=== PATIENT | female | born 1940 | race Caucasian/White ===

== ENCOUNTER 2021-08-18 13:05 | Emergency (ER) | payer OTHER ==
--- OUTSIDE RECORDS SUMMARY | 2021-08-18 13:09 | XMS REPORT | Continuity of Care Document ---
:1940 Author Organization [facility] t Address [address] [place] [address] [address]. [address] [place] [address] Care Team Providers Name Role Phone Roderick LOUISE, Gene Attending Clinician Emerson LR Attending Clinician Unavailable Doctor Unassigned, Name Attending Clinician Unavailable 2, Lab Attending Clinician Unavailable KIKO VAUGHN Attending Clinician Unavailable RODERICK, KIKO Attending Clinician Unavailable Payers Payer Name Policy Type Policy Number Effective Date Expiration Date S ource Problems This patient has no known problems. Allergies, Adverse Reactions, Alerts Allergy Allergy Status Severity Reaction(s) Onset Inactive Treating Comm ents Source Name Type Date Date Clinician Sulfa Propensi Active Nausea 2017-05 Univers (Sulfona ty to and/or 2-03 ity of mide adverse Vomiting 00:00: [place] Antibiot reaction 00 Medica l ics) s Branch SULFA Drug Active N/V 2017-05 Univers (SULFONA Class 2-03 ity of MIDE 00:00: [place] ANTIBIOT 00 Medical ICS) Branch Social History Social Habit Start Date Stop Date Quantity Comments Source Exposure to Not sure [facility] SARS-CoV-2 (event) Medica l Branch Tobacco use and 2018-05-22 2018-05-22 Never used [facility] exposure 00:00:00 00:00:00 Medical Branch Sex [birth year] At [birth year] [facility] 00:00:00 00:00:00 Medical Branch Smoking Status Start Date Stop Date Source Never smoker [facility] Medications Ordered Filled Start Stop Current Ordering Indication Dosage Frequency Signature Comments Components Source Medication Medication Date Date Medication? Clinician (SIG) Name Name PRIMIDONE 2019-05 Yes TAKE 1 Univer s 250 mg 2-16 TABLET BY ity of tablet 00:00: MOUTH [place] 00 TWICE A Medical DAY Branch PRIMIDONE 2020-1 Yes TAKE 1 Univer s 250 mg 2-16 TABLET BY ity of tablet 00:00: MOUTH [place] 00 TWICE A Medical DAY Branch PRIMIDONE 2020-1 Yes TAKE 1 Univer s 250 mg 2-16 TABLET BY ity of tablet 00:00: MOUTH [place] 00 TWICE A Medical DAY Branch PRIMIDONE 2020-1 Yes TAKE 1 Univer s 250 mg 2-16 TABLET BY ity of tablet 00:00: MOUTH [place] 00 TWICE A Medical DAY Branch levocetiriz 2020-0 Yes 5mg Take 5 mg U nivers ine (XYZAL) 5-26 by mouth ity of 5 mg tablet 16:52: every [place] 54 evening. Medical Branch pumpkin 2020-0 Yes 100mg Take 100 Unive rs seed 5-26 mg by ity of extract/soy 16:52: mouth [place] germ (AZO 54 daily. Medical BLADDER Branch CONTROL ORAL) levocetiriz 2020-0 Yes 5mg Take 5 mg U nivers ine (XYZAL) 5-26 by mouth ity of 5 mg tablet 16:52: every [place] 54 evening. Medical Branch pumpkin 2020-0 Yes 100mg Take 100 Unive rs seed 5-26 mg by ity of extract/soy 16:52: mouth [place] germ (AZO 54 daily. Medical BLADDER Branch CONTROL ORAL) levocetiriz 2020-0 Yes 5mg Take 5 mg U nivers ine (XYZAL) 5-26 by mouth ity of 5 mg tablet 16:52: every [place] 54 evening. Medical Branch pumpkin 2020-0 Yes 100mg Take 100 Unive rs seed 5-26 mg by ity of extract/soy 16:52: mouth [place] germ (AZO 54 daily. Medical BLADDER Branch CONTROL ORAL) levocetiriz 2020-0 Yes 5mg Take 5 mg U nivers ine (XYZAL) 5-26 by mouth ity of 5 mg tablet 16:52: every [place] 54 evening. Medical Branch pumpkin 2020-0 Yes 100mg Take 100 Unive rs seed 5-26 mg by ity of extract/soy 16:52: mouth [place] germ (AZO 54 daily. Medical BLADDER Branch CONTROL ORAL) levocetiriz 2020-0 Yes 5mg Take 5 mg U nivers ine (XYZAL) 5-26 by mouth ity of 5 mg tablet 16:52: every [place] 54 evening. Medical Branch pumpkin 2020-0 Yes 100mg Take 100 Unive rs seed 5-26 mg by ity of extract/soy 16:52: mouth [place] germ (AZO 54 daily. Medical BLADDER Branch CONTROL ORAL) levocetiriz 2020-0 Yes 5mg Take 5 mg U nivers ine (XYZAL) 5-26 by mouth ity of 5 mg tablet 16:52: every [place] 54 evening. Medical Branch pumpkin 2020-0 Yes 100mg Take 100 Unive rs seed 5-26 mg by ity of extract/soy 16:52: mouth [place] germ (AZO 54 daily. Medical BLADDER Branch CONTROL ORAL) levocetiriz 2020-0 Yes 5mg Take 5 mg U nivers ine (XYZAL) 5-26 by mouth ity of 5 mg tablet 16:52: every [place] 54 evening. Medical Branch pumpkin 2020-0 Yes 100mg Take 100 Unive rs seed 5-26 mg by ity of extract/soy 16:52: mouth [place] germ (AZO 54 daily. Medical BLADDER Branch CONTROL ORAL) TOPIRAMATE 2020-0 Yes [id number] TAKE 1 U nivers 100 mg 4-02 TABLET BY ity of tablet 00:00: MOUTH [place] 00 TWICE A Medical DAY Branch TOPIRAMATE 2020-0 Yes [id number] TAKE 1 U nivers 100 mg 4-02 TABLET BY ity of tablet 00:00: MOUTH [place] 00 TWICE A Medical DAY Branch TOPIRAMATE 2020-0 Yes [id number] TAKE 1 U nivers 100 mg 4-02 TABLET BY ity of tablet 00:00: MOUTH [place] 00 TWICE A Medical DAY Branch TOPIRAMATE 2020-0 Yes [id number] TAKE 1 U nivers 100 mg 4-02 TABLET BY ity of tablet 00:00: MOUTH [place] 00 TWICE A Medical DAY Branch TOPIRAMATE 2020-0 Yes [id number] TAKE 1 U nivers 100 mg 4-02 TABLET BY ity of tablet 00:00: MOUTH [place] 00 TWICE A Medical DAY Branch TOPIRAMATE 2020-0 Yes [id number] TAKE 1 U nivers 100 mg 4-02 TABLET BY ity of tablet 00:00: MOUTH [place] 00 TWICE A Medical DAY Branch TOPIRAMATE 2020-0 Yes [id number] TAKE 1 U nivers 100 mg 4-02 TABLET BY ity of tablet 00:00: MOUTH [place] 00 TWICE A Medical DAY Branch TOPIRAMATE 2020-0 Yes [id number] TAKE 1 U nivers 100 mg 4-02 TABLET BY ity of tablet 00:00: MOUTH 00 TWICE A Medical DAY Branch TOPIRAMATE 2020-0 Yes [id number] TAKE 1 U nivers 100 mg 4-02 TABLET BY ity of tablet 00:00: MOUTH 00 TWICE A Medical DAY Branch TOPIRAMATE 2020-0 Yes [id number] TAKE 1 U nivers 100 mg 4-02 TABLET BY ity of tablet 00:00: MOUTH 00 TWICE A Medical DAY Branch TOPIRAMATE 2020-0 2020- No [id number] TAKE 1 Univers 100 mg 4-02 04-02 TABLET BY ity of tablet 00:00: 00:00 MOUTH [place] 00 :00 TWICE A Medical DAY Branch PRIMIDONE 2020-0 Yes TAKE 1 Univer s 250 mg 3-23 TABLET BY ity of tablet 00:00: MOUTH 00 TWICE A Medical DAY Branch PRIMIDONE 2020-0 Yes TAKE 1 Univer s 250 mg 3-23 TABLET BY ity of tablet 00:00: MOUTH 00 TWICE A Medical DAY Branch PRIMIDONE 2020-0 Yes TAKE 1 Univer s 250 mg 3-23 TABLET BY ity of tablet 00:00: MOUTH 00 TWICE A Medical DAY Branch PRIMIDONE 2020-0 Yes TAKE 1 Univer s 250 mg 3-23 TABLET BY ity of tablet 00:00: MOUTH 00 TWICE A Medical DAY Branch PRIMIDONE 2020-0 Yes TAKE 1 Univer s 250 mg 3-23 TABLET BY ity of tablet 00:00: MOUTH 00 TWICE A Medical DAY Branch PRIMIDONE 2020-0 Yes TAKE 1 Univer s 250 mg 3-23 TABLET BY ity of tablet 00:00: MOUTH 00 TWICE A Medical DAY Branch PRIMIDONE 2020-0 Yes TAKE 1 Univer s 250 mg 3-23 TABLET BY ity of tablet 00:00: MOUTH 00 TWICE A Medical DAY Branch PRIMIDONE 2020-0 2020- No TAKE 1 Unive rs 250 mg 3-23 12-16 TABLET BY ity of tablet 00:00: 00:00 MOUTH [place] 00 :00 TWICE A Medical DAY Branch TOPIRAMATE 2020-0 Yes [id number] TAKE 1 U nivers 100 mg 1-08 TABLET BY ity of tablet 00:00: MOUTH 00 TWICE A Medical DAY Branch TOPIRAMATE 2020-0 Yes [id number] TAKE 1 U nivers 100 mg 1-08 TABLET BY ity of tablet 00:00: MOUTH 00 TWICE A Medical DAY Branch TOPIRAMATE 2020-0 2020- No [id number] TAKE 1 Univers 100 mg 05-26 TABLET BY ity of tablet 00:00: 00:00 MOUTH [place] 00 :00 TWICE A Medical DAY Branch loratadine Yes 1{tbl} Take 1 Uni vers (CLARITIN 7-05 tablet by ity o f ORAL) 16:11: mouth [place] 14 daily. Medical [facility] Yes Take 1 Univ ers ns with 7-05 TAB-CAP/M2 ity of Fluoride 16:11: by mouth [place] (MULTI-HENRIQUE 14 daily. Medica l MIN ORAL) [facility] 1{tbl} Take 1 Uni vers (CLARITIN 7-05 tablet by ity o f ORAL) 16:11: mouth [place] 14 daily. [facility] Yes Take 1 Univ ers ns with 7-05 TAB-CAP/M2 ity of Fluoride 16:11: by mouth [place] (MULTI-HENRIQUE 14 daily. Medica l MIN ORAL) [place] [facility] Yes 1{tbl} Take 1 Uni vers (CLARITIN 7-05 tablet by ity o f ORAL) 16:11: mouth [place] 14 daily. Medical [facility] Yes Take 1 Univ ers ns with 7-05 TAB-CAP/M2 ity of Fluoride 16:11: by mouth [place] (MULTI-HENRIQUE 14 daily. Medica l MIN ORAL) [facility] Yes 1{tbl} Take 1 Uni vers (CLARITIN 7-05 tablet by ity o f ORAL) 16:11: mouth [place] 14 daily. [facility] Yes Take 1 Univ ers ns with 7-05 TAB-CAP/M2 ity of Fluoride 16:11: by mouth [place] (MULTI-HENRIQUE 14 daily. Medica l MIN ORAL) Branch loratadine Yes 1{tbl} Take 1 Uni vers (CLARITIN 7-05 tablet by ity o f ORAL) 16:11: mouth [place] 14 daily. Medical Branch loratadine Yes 1{tbl} Take 1 Uni vers (CLARITIN 7-05 tablet by ity o f ORAL) 16:11: mouth [place] 14 daily. [facility] Yes Take 1 Univ ers ns with 7-05 TAB-CAP/M2 ity of Fluoride 16:11: by mouth [place] (MULTI-HENRIQUE 14 daily. Medica l MIN ORAL) Branch [facility] Yes Take 1 Univ ers ns with 7-05 TAB-CAP/M2 ity of Fluoride 16:11: by mouth [place] (MULTI-HENRIQUE 14 daily. Medica l MIN ORAL) Branch [facility] Yes 1{tbl} Take 1 Uni vers (CLARITIN 7-05 tablet by ity o f ORAL) 16:11: mouth [place] 14 daily. Medical [facility] Yes Take 1 Univ ers ns with 7-05 TAB-CAP/M2 ity of Fluoride 16:11: by mouth [place] (MULTI-HENRIQUE 14 daily. Medica l MIN ORAL) Branch [facility] Yes 1{tbl} Take 1 Uni vers (CLARITIN 7-05 tablet by ity o f ORAL) 16:11: mouth [place] 14 daily. [facility] Yes Take 1 Univ ers ns with 7-05 TAB-CAP/M2 ity of Fluoride 16:11: by mouth [place] (MULTI-HENRIQUE 14 daily. Medica l MIN ORAL) Branch [facility] Yes 1{tbl} Take 1 Uni vers (CLARITIN 7-05 tablet by ity o f ORAL) 16:11: mouth [place] 14 daily. [facility] Yes Take 1 Univ ers ns with 7-05 TAB-CAP/M2 ity of Fluoride 16:11: by mouth [place] (MULTI-HENRIQUE 14 daily. Medica l MIN ORAL) Branch [facility] Yes 1{tbl} Take 1 Uni vers (CLARITIN 7-05 tablet by ity o f ORAL) 16:11: mouth [place] 14 daily. [facility] Yes Take 1 Univ ers ns with 7-05 TAB-CAP/M2 ity of Fluoride 16:11: by mouth [place] (MULTI-HENRIQUE 14 daily. Medica l MIN ORAL) Branch [facility] Yes 1{tbl} Take 1 Uni vers (CLARITIN 7-05 tablet by ity o f ORAL) 16:11: mouth [place] 14 daily. [facility] Yes Take 1 Univ ers ns with 7-05 TAB-CAP/M2 ity of Fluoride 16:11: by mouth [place] (MULTI-HENRIQUE 14 daily. Medica l MIN ORAL) Branch loratadine Yes 1{tbl} Take 1 Uni vers (CLARITIN 7-05 tablet by ity o f ORAL) 16:11: mouth [place] 14 daily. Medical Branch [facility] Yes Take 1 Univ ers ns with 7-05 TAB-CAP/M2 ity of Fluoride 16:11: by mouth [place] (MULTI-HENRIQUE 14 daily. Medica l MIN ORAL) Branch BABY Yes 1{tbl} Take 1 Univers ASPIRIN 7-05 tablet by ity of ORAL 16:09: mouth [place] 34 daily. Medical Branch BABY Yes 1{tbl} Take 1 Univers ASPIRIN 7-05 tablet by ity of ORAL 16:09: mouth [place] 34 daily. Medical Branch BABY Yes 1{tbl} Take 1 Univers ASPIRIN 7-05 tablet by ity of ORAL 16:09: mouth [place] 34 daily. Medical Branch BABY Yes 1{tbl} Take 1 Univers ASPIRIN 7-05 tablet by ity of ORAL 16:09: mouth [place] 34 daily. Medical Branch BABY Yes 1{tbl} Take 1 Univers ASPIRIN 7-05 tablet by ity of ORAL 16:09: mouth [place] 34 daily. Medical Branch BABY Yes 1{tbl} Take 1 Univers ASPIRIN 7-05 tablet by ity of ORAL 16:09: mouth [place] 34 daily. Medical Branch BABY Yes 1{tbl} Take 1 Univers ASPIRIN 7-05 tablet by ity of ORAL 16:09: mouth [place] 34 daily. Medical Branch BABY Yes 1{tbl} Take 1 Univers ASPIRIN 7-05 tablet by ity of ORAL 16:09: mouth [place] 34 daily. Medical Branch BABY Yes 1{tbl} Take 1 Univers ASPIRIN 7-05 tablet by ity of ORAL 16:09: mouth [place] 34 daily. Medical Branch BABY Yes 1{tbl} Take 1 Univers ASPIRIN 7-05 tablet by ity of ORAL 16:09: mouth [place] 34 daily. Medical Branch BABY Yes 1{tbl} Take 1 Univers ASPIRIN 7-05 tablet by ity of ORAL 16:09: mouth [place] 34 daily. Medical Branch BABY Yes 1{tbl} Take 1 Univers ASPIRIN 7-05 tablet by ity of ORAL 16:09: mouth [place] 34 daily. Medical Branch atorvastati [id number] Yes TAKE 1 Univ ers n 40 mg 5-26 TABLET BY ity of tablet 00:00: MOUTH 00 EVERYDAY Medical AT BEDTIME Branch atorvastati [id number] Yes TAKE 1 Univ ers n 40 mg 5-26 TABLET BY ity of tablet 00:00: MOUTH 00 EVERYDAY Medical AT BEDTIME Branch atorvastati 0 Yes TAKE 1 Univ ers n 40 mg 5-26 TABLET BY ity of tablet 00:00: MOUTH 00 EVERYDAY Medical AT BEDTIME Branch atorvastati 0 Yes TAKE 1 Univ ers n 40 mg 5-26 TABLET BY ity of tablet 00:00: MOUTH 00 EVERYDAY Medical AT BEDTIME Branch atorvastati 0 Yes TAKE 1 Univ ers n 40 mg 5-26 TABLET BY ity of tablet 00:00: MOUTH 00 EVERYDAY Medical AT BEDTIME Branch atorvastati 0 Yes TAKE 1 Univ ers n 40 mg 5-26 TABLET BY ity of tablet 00:00: MOUTH 00 EVERYDAY Medical AT BEDTIME Branch atorvastati 2018-0 Yes TAKE 1 Univ ers n 40 mg 5-26 TABLET BY ity of tablet 00:00: MOUTH 00 EVERYDAY Medical AT BEDTIME Branch atorvastati 0 Yes TAKE 1 Univ ers n 40 mg 5-26 TABLET BY ity of tablet 00:00: MOUTH 00 EVERYDAY Medical AT BEDTIME Branch atorvastati 0 Yes TAKE 1 Univ ers n 40 mg 5-26 TABLET BY ity of tablet 00:00: MOUTH 00 EVERYDAY Medical AT BEDTIME Branch atorvastati 2019-0 Yes TAKE 1 Univ ers n 40 mg 5-26 TABLET BY ity of tablet 00:00: MOUTH 00 EVERYDAY Medical AT BEDTIME Branch atorvastati 2019-0 Yes TAKE 1 Univ ers n 40 mg 5-26 TABLET BY ity of tablet 00:00: MOUTH 00 EVERYDAY Medical AT BEDTIME Branch atorvastati 2019-0 Yes TAKE 1 Univ ers n 40 mg 5-26 TABLET BY ity of tablet 00:00: MOUTH 00 EVERYDAY Medical AT BEDTIME Branch primidone 2019-0 Yes 250mg Take 1 Unive rs 250 mg 4-04 tablet by ity of tablet 00:00: mouth 2 [place] 00 (two) Medical times Branch daily. primidone [id number] 2020- No 250mg Take 1 Univ ers 250 mg 4-08-08 tablet by ity of tablet 00:00: 00:00 mouth 2 [place] 00 :00 (two) Medical times Branch daily. oxybutynin 2017-05 Yes Univers chloride 5 1-27 ity of mg tablet 00:00: [place] [facility] oxybutynin 2017-05 Yes Univers chloride 5 1-27 ity of mg tablet 00:00: [place] [facility] oxybutynin 2017-05 Yes Univers chloride 5 1-27 ity of mg tablet 00:00: [place] [facility] oxybutynin 2017-05 Yes Univers chloride 5 1-27 ity of mg tablet 00:00: [place] [facility] oxybutynin 2017-05 Yes Univers chloride 5 1-27 ity of mg tablet 00:00: [place] [facility] oxybutynin 2017-05 Yes Univers chloride 5 1-27 ity of mg tablet 00:00: [place] [facility] oxybutynin 2017-05 Yes Univers chloride 5 1-27 ity of mg tablet 00:00: [place] [facility] oxybutynin 2017-05 Yes Univers chloride 5 1-27 ity of mg tablet 00:00: [place] [facility] oxybutynin 2017-05 Yes Univers chloride 5 1-27 ity of mg tablet 00:00: [place] [facility] oxybutynin 2017-05 Yes Univers chloride 5 1-27 ity of mg tablet 00:00: [place] [facility] oxybutynin 2017-05 Yes Univers chloride 5 1-27 ity of mg tablet 00:00: [place] [facility] oxybutynin 2017-05 Yes Univers chloride 5 1-27 ity of mg tablet 00:00: [place] [facility] propranolol Yes TAKE 1 Univ ers [place] 120 mg 9-28 CAPSULE BY ity of 24 hr 00:00: MOUTH [place] capsule 00 TWICE A Medical DAY Branch propranolol Yes TAKE 1 Univ ers [place] 120 mg 9-28 CAPSULE BY ity of 24 hr 00:00: MOUTH [place] capsule 00 TWICE A Medical DAY Branch propranolol Yes TAKE 1 Univ ers [place] 120 mg 9-28 CAPSULE BY ity of 24 hr 00:00: MOUTH [place] capsule 00 TWICE A Medical DAY Branch propranolol Yes TAKE 1 Univ ers [place] 120 mg 9-28 CAPSULE BY ity of 24 hr 00:00: MOUTH [place] capsule 00 TWICE A Medical DAY Branch propranolol Yes TAKE 1 Univ ers [place] 120 mg 9-28 CAPSULE BY ity of 24 hr 00:00: MOUTH [place] capsule 00 TWICE A Medical DAY Branch propranolol 2017- Yes TAKE 1 Univ ers [place] 120 mg 9-28 CAPSULE BY ity of 24 hr 00:00: MOUTH [place] capsule 00 TWICE A Medical DAY Branch propranolol Yes TAKE 1 Univ ers [place] 120 mg 9-28 CAPSULE BY ity of 24 hr 00:00: MOUTH [place] capsule 00 TWICE A Medical DAY Branch propranolol Yes TAKE 1 Univ ers [place] 120 mg 9-28 CAPSULE BY ity of 24 hr 00:00: MOUTH [place] capsule 00 TWICE A Medical DAY Branch propranolol Yes TAKE 1 Univ ers [place] 120 mg 9-28 CAPSULE BY ity of 24 hr 00:00: MOUTH [place] capsule 00 TWICE A Medical DAY Branch propranolol Yes TAKE 1 Univ ers [place] 120 mg 9-28 CAPSULE BY ity of 24 hr 00:00: MOUTH [place] capsule 00 TWICE A Medical DAY Branch propranolol Yes TAKE 1 Univ ers [place] 120 mg 9-28 CAPSULE BY ity of 24 hr 00:00: MOUTH [place] capsule 00 TWICE A Medical DAY Branch propranolol Yes TAKE 1 Univ ers [place] 120 mg 9-28 CAPSULE BY ity of 24 hr 00:00: MOUTH [place] capsule 00 TWICE A Medical DAY Branch simvastatin Yes TAKE 1 Univ ers 40 mg 9-18 TABLET BY ity of tablet 00:00: MOUTH 00 EVERY Medical EVENING Branch simvastatin Yes TAKE 1 Univ ers 40 mg 9-18 TABLET BY ity of tablet 00:00: MOUTH 00 EVERY Medical EVENING Branch simvastatin 2017- Yes TAKE 1 Univ ers 40 mg 9-18 TABLET BY ity of tablet 00:00: MOUTH [place] 00 EVERY Medical EVENING Branch simvastatin 2017- Yes TAKE 1 Univ ers 40 mg 9-18 TABLET BY ity of tablet 00:00: MOUTH 00 EVERY Medical EVENING Branch simvastatin 2017- Yes TAKE 1 Univ ers 40 mg 9-18 TABLET BY ity of tablet 00:00: MOUTH 00 EVERY Medical EVENING Branch simvastatin 2017- Yes TAKE 1 Univ ers 40 mg 9-18 TABLET BY ity of tablet 00:00: MOUTH 00 EVERY Medical EVENING Branch simvastatin 2017- Yes TAKE 1 Univ ers 40 mg 9-18 TABLET BY ity of tablet 00:00: MOUTH 00 EVERY Medical EVENING Branch simvastatin Yes TAKE 1 Univ ers 40 mg 9-18 TABLET BY ity of tablet 00:00: MOUTH 00 EVERY Medical EVENING Branch simvastatin Yes TAKE 1 Univ ers 40 mg 9-18 TABLET BY ity of tablet 00:00: MOUTH 00 EVERY Medical EVENING Branch simvastatin Yes TAKE 1 Univ ers 40 mg 9-18 TABLET BY ity of tablet 00:00: MOUTH 00 EVERY Medical EVENING Branch simvastatin Yes TAKE 1 Univ ers 40 mg 9-18 TABLET BY ity of tablet 00:00: MOUTH 00 EVERY Medical EVENING Branch simvastatin Yes TAKE 1 Univ ers 40 mg 9-18 TABLET BY ity of tablet 00:00: MOUTH 00 EVERY Medical EVENING Branch Immunizations Ordered Filled Immunization Date Status Comments [facility] e Immunization Name Name SARS-COV-2 COVID-19 2020-08-17 Completed Unive rsity of PFIZER VACCINE 00:00:00 [facility] SARS-COV-2 COVID-19 2020-07-27 Completed Unive rsity of PFIZER VACCINE 00:00:00 [facility] Vital Signs Vital Name Observation Time Observation Value Comments Source Systolic blood 2019-10-12 16:52:00 107 mm[Hg] Univer sity of pressure [facility] [place] [facility] Diastolic blood 2019-10-12 16:52:00 77 mm[Hg] Unive rsity of pressure [facility] [place] [facility] Heart rate 2019-10-12 16:52:00 56 /min [facility] Body temperature 2019-10-12 16:52:00 36.67 Lillie [facility] Respiratory rate 2019-10-12 16:52:00 17 /min [facility] Body height 2019-10-12 16:52:00 162.6 cm [facility] Body weight 2019-10-12 16:52:00 75.411 kg [facility] BMI 2019-10-12 16:52:00 28.54 kg/m2 [facility] Procedures Procedure Date / Time Performing Clinician Source Performed AUTHORIZATION FOR 2020-06-08 06:01:00 Doctor Unassigned, No [facility] RELEASE OF [facility] Name Medical Branch ASSIGNMENT OF BENEFITS 2019-10-12 16:09:31 Doctor Unassigned, No [facility] Medical Branch Encounters Start End Encounter Admission Attending Care Care Encounter Source Date/Time Date/Time Type Type Clinicians Facility Department ID 2020-10-29 2020-10-29 [facility] [id number] Univers 00:00:00 00:00:00 Cruz Odonnell [id number] [id number] [phone] [address] 2020-08-17 2020-08-17 Outpatient Jasiel LR [facility] [id number] Univers 14:40:00 14:40:00 TIFFANIE ity [facility] 2020-07-27 2020-07-27 [facility] [id number] Univers 14:50:00 14:50:00 TIFFANIE ity [facility] 2020-06-09 2020-06-09 [facility] [id number] Univers 00:00:00 00:00:00 Cruz Odonnell [id number] [id number] [phone] [address] 2020-06-08 2020-06-08 Orders Doctor CHELI [id number] Univers 00:00:00 00:00:00 Only Unassigned, CHARMAINE [id number] ity of [place] [facility] [id number] Krystian as [phone] [address] 2020-05-03 2020-05-03 Refmary lou Vaughn [facility] [id number] Univers 00:00:00 00:00:00 Cruz Odonnell [id number] [id number] [phone] [address] 2019-10-13 2019-10-13 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, Adc 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 [facility] [id number] Univers 11:06:53 11:21:53 Visit Cruz Vaughn [id number] [id number] [phone] Sc dical nal [facility] 2019-10-13 2019-10-13 Outpatient R [facility] [id number] Univers 10:30:00 10:30:00 [id number] ity [facility] 2019-10-13 2019-10-13 Outpatient R RODERICK CRUZ [facility] [id number] Univers 10:30:00 10:30:00 CRUZ VAUGHN [facility] 2019-10-12 2019-10-12 Office Roderick, [facility] [id number] Univers 11:09:36 11:59:41 Visit Cruz Odonnell [id number] ity [facility] [id number] [phone] [facility] 092 [facility] 2019-10-12 2019-10-12 Outpatient R CRUZ VAUGHN [facility] [id number] Univers 11:00:00 11:00:00 [facility] [id number] [facility] 2019-10-12 Outpatient R CRUZ VAUGHN [facility] [id number] Univers 11:00:00 11:00:00 CRUZ VAUGHN [facility] 2019-10-12 2019-10-12 Orders Doctor BOWER 1..840.114 [id number] Univers 00:00:00 00:00:00 Only Unassigned, CHARMAINE [id number] ity of [facility] [id number] Krystian as [phone] [address] 2019-08-19 2019-08-19 Refill Roderick [facility] [id number] Univers 00:00:00 00:00:00 Cruz Odonnell [id number] [id number] [phone] [facility] nal 092 [facility] 2019-08-19 2019-08-19 Refill Roderick [facility] [id number] Univers 00:00:00 00:00:00 Cruz Odonnell [id number] [id number] [phone] Sc dical nal 092 [facility] 2019-08-09 2019-08-09 [facility] [id number] Univers 00:00:00 00:00:00 Cruz Odonnell [id number] [id number] [phone] Sc dical nal 092 [facility] 2019-07-31 2019-07-31 [facility] 1.2.840.114 [id number] Univers 00:00:00 00:00:00 Cruz Odonnell [id number] [id number] [phone] [address] Results This patient has no known results.
--- NOTE | 2021-08-18 14:05 | RAD REPORT ---
EXAM DESCRIPTION: CT - Thorax Wo Con - 08/18/2021 1:50 pm CLINICAL HISTORY: fall, left sided rib pain, cough COMPARISON: No comparisons TECHNIQUE: Axial 5 mm thick images of the chest were obtained without IV contrast. All CT scans are performed using dose optimization technique as appropriate and may include automated exposure control or mA/KV adjustment according to patient size. FINDINGS: No acute mass or infiltrate seen. Scattered areas of subpleural scarring present. No pulmo nary contusion is identified. No pleural thickening or pleural effusion. No pneumothorax. No abnormal mediastinal or hilar masses or lymphadenopathy seen. No gross aortic or pulmonary artery finding suspected. Assessment is limited in the absence of IV contrast. No cardiomegaly or pericardi al effusion. The the left anterior third- sixth ribs are fractured near the costochondral junctions. No significan t displacement or angulation deformity. No pathologic rib changes. Left clavicle is intact. No sternu m fracture is identified. IMPRESSION: Nondisplaced fractures of the left anterior third through sixth ribs. No associated pulmonary contusion, pneumothorax or hemothorax.
--- NOTE | 2021-08-18 15:15 | RAD REPORT ---
EXAM DESCRIPTION: RAD - Wrist Left 3 View - 08/18/2021 2:52 pm CLINICAL HISTORY: fall 2 weeks ago;Pain COMPARISON: No comparisons FINDINGS: No fracture is identified. There is no dislocation or periosteal reaction noted. 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 Radiocarpal joint space is narrowed slightly. IMPRESSION: Degenerative changes are present as detailed but no fracture or acute finding confirmed.
--- NOTE | 2021-08-18 15:28 | ER ---
Nurse's Notes [facility] Name: Neeta Olson Age: 80 yrs Sex: Female : 1940 Arrival Date: 08/18/2021 Time: 13:10 Bed 17 Private MD: Silverio Camacho C Diagnosis: Multiple fractures of ribs, left side;Contusion of left wrist Presentation: 08/18 13:16 Chief complaint: Patient states: August 01 - I got my foot caught in the end of my ld1 bedspread and I fell. Denies LOC - did not hit head. C/O chest pain, left wrist pain \T\ left side rib pain. Coronavirus screen: At this time, the client does not indicate any symptoms associated with coronavirus-19. Ebola Screen: No symptoms or risks identified at this time. Initial Sepsis Screen: Does the patient meet any 2 criteria? No. Patient's initial sepsis screen is negative. Does the patient have a suspected source of infection? No. Patient's initial sepsis screen is negative. Risk Assessment: Do you want to hurt yourself or someone else? Patient reports no desire to harm self or others. Onset of symptoms was August 18, 2021. 13:16 Method Of Arrival: Ambulatory ld1 13:16 Acuity: FLAVIA 3 ld1 Triage Assessment: 13:20 General: Appears in no apparent distress. comfortable, Behavior is calm, cooperative, ld1 appropriate for age. Pain: Complains of pain in diaphragm and left hand Pain does not radiate. Pain currently is 0 out of 10 on a pain scale. EENT: No signs and/or symptoms were reported regarding the EENT system. Neuro: Level of Consciousness is awake, alert, obeys commands, Oriented to person, place, time, situation. Cardiovascular: Capillary refill < 3 seconds Patient's skin is warm and dry. Respiratory: Airway is patent Respiratory effort is even, unlabored. Historical: - Allergies: 13:19 Sulfa (Sulfonamide Antibiotics); ld1 - PMHx: 13:19 Glaucoma; ld1 13:22 Tremors; Lymphedema; ld1 - PSHx: 13:19 None; ld1 - Immunization history:: Adult Immunizations up to date, Client reports receiving the 2nd dose of the Covid vaccine. - Social history:: Smoking status: Patient denies any tobacco usage or history of. Patient/guardian denies using alcohol. - Family history:: not pertinent. - Hospitalizations: : No recent hospitalization is reported. Screenin:38 Abuse screen: Denies threats or abuse. Nutritional screening: No deficits noted. jd3 Tuberculosis screening: No symptoms or risk factors identified. Fall Risk Ambulatory Aid- None/Bed Rest/Nurse Assist (0 pts). Gait- Normal/Bed Rest/Wheelchair (0 pts) Mental Status- Oriented to own ability (0 pts). Total Shah Fall Scale indicates No Risk (0-24 pts). Assessment: 13:36 General: Appears in no apparent distress. comfortable, Behavior is calm, cooperative, jd3 appropriate for age. Pain: Complains of pain in left lateral anterior chest and left wrist Quality of pain is described as tender, Aggravated by increased activity. Neuro: Level of Consciousness is awake, alert, obeys commands, Oriented to person, place, time, situation. Cardiovascular: Capillary refill < 3 seconds Patient's skin is warm and dry. Respiratory: Airway is patent Respiratory effort is even, unlabored, Respiratory pattern is regular, symmetrical. GI: No signs and/or symptoms were reported involving the gastrointestinal system. : No signs and/or symptoms were reported regarding the genitourinary system. EENT: No signs and/or symptoms were reported regarding the EENT system. Derm: Skin is intact, Skin is dry, Skin is normal, Skin temperature is warm. Musculoskeletal: Circulation, motion, and sensation intact. Range of motion: intact in all extremities, Reports swelling in the left wrist a couple of days ago. 14:44 Reassessment: Patient appears in no apparent distress at this time. Patient and/or jd3 family updated on plan of care and expected duration. Pain level reassessed. Patient is alert, oriented x 3, equal unlabored respirations, skin warm/dry/pink. awaiting results and disposition. 15:47 Reassessment: Patient appears in no apparent distress at this time. Patient and/or jd3 family updated on plan of care and expected duration. Pain level reassessed. Patient is alert, oriented x 3, equal unlabored respirations, skin warm/dry/pink. reported understanding of discharge instructions. even and steady gait with cane to ER exit. Vital Signs: 13:16 BP 116 / 94; Pulse 82; Resp 18; Temp 97.9(TE); Pulse Ox 94% on R/A; Weight 77.11 kg; ld1 Height 5 ft. 4 in. (162.56 cm); Pain 0/10; 13:16 Body Mass Index 29.18 (77.11 kg, 162.56 cm) ld1 ED Course: 13:10 Patient arrived in ED. am2 13:11 Silverio Camacho MD is Private Physician. am2 13:19 Triage completed. ld1 13:20 Arm band placed on right wrist. ld1 13:24 Ton Lema RN is Primary Nurse. jd3 13:26 Keith Post MD is Attending Physician. rn 13:38 Patient has correct armband on for positive identification. Bed in low position. Call jd3 light in reach. Side rails up X 1. Adult w/ patient. Pulse ox on. NIBP on. 13:51 CT Chest Wo Con In Process Unspecified. EDMS 14:54 XRAY Wrist LEFT 3 view In Process Unspecified. EDMS 15:28 Silverio Camacho MD is Referral Physician. rn 15:47 No provider procedures requiring assistance completed. Patient did not have IV access jd3 during this emergency room visit. Administered Medications: No medications were administered Outcome: 15:28 Discharge ordered by MD. rn 15:48 Discharged to home ambulatory, with family. jd3 15:48 Condition: stable 15:48 Discharge instructions given to patient, family, Instructed on discharge instructions, follow up and referral plans. medication usage, Demonstrated understanding of instructions, follow-up care, medications, Prescriptions given X 1. 15:48 Patient left the ED. jd3 Signatures: Dispatcher [employer] EDMS Keith Post MD MD rn Moreno, Amanda am2 Ton Lema RN RN jClover Calixto RN RN ld1 Corrections: (The following items were deleted from the chart) 13:20 13:19 Allergies: Sulfacetamide Sodium; ld1 ld1 13:20 13:19 PMHx: None; ld1 ld1 13:22 13:20 PMHx: Lymphadema; ld1 ld1
--- NOTE | 2021-08-18 15:28 | EDPHYS ---
Physician Documentation [facility] Name: Neeta Olson Age: 80 yrs Sex: Female : 1940 Arrival Date: 08/18/2021 Time: 13:10 Bed 17 Private MD: Silverio Camacho C ED Physician Keith Post HPI: 08/18 13:50 This 80 yrs old Female presents to ER via Ambulatory with complaints of Fall Injury - 2 rn wks ago, Wrist Pain, Chest Pain From Injury. 13:50 Details of fall: The patient fell from an upright position, while standing. Onset: The rn symptoms/episode began/occurred 2 week(s) ago. Associated injuries: The patient sustained injury to the chest, pain left chest wall. 13:52 Severity of symptoms: At their worst the symptoms were mild, in the emergency rn department the symptoms are unchanged. The patient has not experienced similar symptoms in the past. The patient has not recently seen a physician. Pt reports making her bed 2 weeks ago, got tangled in bed spread, fell onto left side, has been having left sided rib pain since then that is worse with coughing or sneezing, no pain with deep inspiration, and also having left wrist pain. No other injuries. PCP prescribed abx this week for cough/sneezing. Denies sob. No hemoptysis. . Historical: - Allergies: 13:19 Sulfa (Sulfonamide Antibiotics); ld1 - PMHx: 13:19 Glaucoma; ld1 13:22 Tremors; Lymphedema; ld1 - PSHx: 13:19 None; ld1 - Immunization history:: Adult Immunizations up to date, Client reports receiving the 2nd dose of the Covid vaccine. - Social history:: Smoking status: Patient denies any tobacco usage or history of. Patient/guardian denies using alcohol. - Family history:: not pertinent. - Hospitalizations: : No recent hospitalization is reported. ROS: 13:52 Constitutional: Negative for fever, chills, and weight loss, Eyes: Negative for injury, rn pain, redness, and discharge, Neck: Negative for injury, pain, and swelling, Cardiovascular: Negative for palpitations, and edema, Respiratory: Negative for shortness of breath, cough, wheezing Abdomen/GI: Negative for abdominal pain, nausea, vomiting, diarrhea, and constipation, Back: Negative for injury and pain, MS/Extremity: + left wrist pain and injury Skin: Negative for injury, rash, and discoloration, Neuro: Negative for headache, weakness, numbness, tingling, and seizure. Exam: 13:52 Constitutional: This is a well developed, well nourished patient who is awake, alert, rn and in no acute distress. Head/Face: Normocephalic, atraumatic. Eyes: Periorbital areas with no swelling, redness, or edema. Neck: Trachea midline, no masses palpated Chest/axilla: Mild tenderness left lateral ribs, no crepitus, no ecchymosis Cardiovascular: Regular rate and rhythm. No pulse deficits. Respiratory: No increased work of breathing, no retractions or nasal flaring. Abdomen/GI: Soft, non-tender Back: No spinal tenderness. No costovertebral tenderness. Full range of motion. Skin: Warm, dry MS/ Extremity: Pulses equal, no cyanosis. Neurovascular intact. Full, normal range of motion. Equal circumference. Neuro: Awake and alert, GCS 15 Vital Signs: 13:16 BP 116 / 94; Pulse 82; Resp 18; Temp 97.9(TE); Pulse Ox 94% on R/A; Weight 77.11 kg; ld1 Height 5 ft. 4 in. (162.56 cm); Pain 0/10; 13:16 Body Mass Index 29.18 (77.11 kg, 162.56 cm) ld1 MDM: 13:26 Patient medically screened. rn 15:23 Differential diagnosis: contusion, fracture, sprain, strain. Data reviewed: vital rn signs, nurses notes, radiologic studies, CT scan, plain films. 15:26 Counseling: I had a detailed discussion with the patient and/or guardian regarding: the rn historical points, exam findings, and any diagnostic results supporting the discharge/admit diagnosis, radiology results, the need for outpatient follow up, to return to the emergency department if symptoms worsen or persist or if there are any questions or concerns that arise at home. Response to treatment: the patient's symptoms have mildly improved after treatment, and as a result, I will discharge patient. Special discussion: I discussed with the patient/guardian in detail that at this point there is no indication for admission to the hospital. It is understood, however, that if the symptoms persist or worsen the patient needs to return immediately for re-evaluation. ED course: CT chest without pneumothorax or hemothorax. Xray wrist neg for fracture. Will dc home with return precautions and pain medication prn.. 08/18 13:33 Order name: XRAY Wrist LEFT 3 view; Complete Time: 15:23 rn 08/18 13:33 Order name: CT Chest Wo Con; Complete Time: 14:07 rn 08/18 15:28 Order name: INCENTIVE SPIROMETRY rn Administered Medications: No medications were administered Disposition Summary: 08/18/21 15:28 Discharge Ordered Location: Home rn Problem: new rn Symptoms: have improved rn Condition: Stable rn Diagnosis - Multiple fractures of ribs, left side rn - Contusion of left wrist rn Followup: rn - With: Silverio Camacho MD - When: As needed - Reason: Recheck today's complaints, Re-evaluation by your physician Discharge Instructions: - Discharge Summary Sheet rn - Rib Fracture rn Forms: - Medication Reconciliation Form rn - Thank You Letter rn - Antibiotic rn integrity - Prescription Opioid Use rn Prescriptions: - Tramadol 50 mg Oral Tablet - take 1 tablet by ORAL route every 8 hours as needed; 12 tablet; Refills: 0, rn Product Selection Permitted Signatures: Dispatcher [employer] EDKeith Rudolph MD MD rn Dibbern, Lauren, RN RN ld1 Corrections: (The following items were deleted from the chart) 13:20 13:19 Allergies: Sulfacetamide Sodium; ld1 ld1 13:20 13:19 PMHx: None; ld1 ld1 13:22 13:20 PMHx: Lymphadema; ld1 ld1
[2021-08-18 15:53] VITALS: BP 116/94; TEMP 97.9; O2SAT 94
== END 2021-08-18 15:48 | disposition home or self-care (01) ==
LOC: ER 13:05
DX: S22.42XA Multiple fractures of ribs, left side, initial encounter for closed fracture (principal); S60.212A Contusion of left wrist, initial encounter; W18.30XA Fall on same level, unspecified, initial encounter; Z88.2 Allergy status to sulfonamides
CPT/HCPCS: 71250; 99283

== ENCOUNTER 2022-12-03 11:58 | Emergency (ER) | payer OTHER ==
--- OUTSIDE RECORDS SUMMARY | 2022-12-03 12:05 | XMS REPORT | Continuity of Care Document ---
:1940 Author Organization [facility] t Address [address] [place] [address] [place] [id number] Care Team Providers Name Role Phone Meeta Jeevan Osmar Attending Clinician Roderick LOUISE, Leandro Ricci Attending Clinician TIFFANIE LR Attending Clinician Unavailable Doctor Unassigned, [place] Attending Clinician Unavailable 2, [facility] Attending Clinician Unavailable LEANDRO VAUGHN Attending Clinician Unavailable LEANDRO VAUGHN Attending Clinician Unavailable Payers Payer Name Policy Type Policy Number Effective Date Expiration Date S ource Problems Condition Condition Condition Status Onset Resolution Last Treating Co mments Source Name Details Category Date Date Treatment Clinician Date 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 Hyperlipid Hyperlipi Problem Active 2014-052022-09-06 Memoria emia demia - 14:17:37 l (disorder) (disorder) 00:00: He rmann Active 00 03/31/2015 Problem 09/06/2022 [facility] Hypertensi Hypertens Problem Active 2022-09-06 Memoria ve beni 14:17:37 l disorder, disorder, Herm devin systemic systemic arterial arterial (disorder) (disorder) Active Problem 09/06/2022 [facility]Kaden rial [facility] Allergies, Adverse Reactions, Alerts Allergy Allergy Status [...] 00:00: [place] ANTIBIOT 00 Medical ICS) Branch sulfa sulfa Active Memoria drugs drugs l [place] Social History Social Habit Start Date Stop Date Quantity Comments Source Exposure to Not sure [facility] SARS-CoV-2 (event) Medica l Branch Tobacco use and 2018-05-22 2018-05-22 Never used [facility] exposure 00:00:00 [facility]:00:00 [facility] Sex Assigned At [birth year] [facility] 00:00:00 00:00:00 [facility] Smoking Status Start Date Stop Date Source Tobacco smoking status [facility] Medications Ordered Filled Start Stop Current Ordering Indication Dosage Frequency Signature Comments Components Source Medication Medication Date Date Medication? Clinician (SIG) Name Name topiramate Yes 100 mg = 1 M emoria 100 mg oral 4-18 tab, PO, l tablet 15:09: BID, # 180 Liss nn 00 tab, 3 Refill(s), [id number], 154.94, cm, 09/03/22 9:56:00 CDT, Height, 81.818, kg, 09/03/22 9:56:00 CDT, Weight Prevagen Yes 50 Memoria 4-18 microgram, l 15:01: PO, Daily, Cristino 00 0 Refill(s) primidone Yes = 1 tab, Kaden zehra 250 mg oral 1-31 PO, BID, # l tablet 16:55: 180 tab, 2 Liss nn 00 Refill(s), [id number], 154.94, cm, 03/05/22 11:11:00 CDT, Height, 80.455, kg, 03/05/22 11:11:00 CDT, Weight primidone 0 Yes See Memoria 250 mg oral 4-15 Instructio l tablet 16:11: ns, TAKE 1 Liss nn 00 TABLET BY MOUTH TWICE A DAY, # 180 tab, 2 Refill(s), [id number], 154.94, cm, 08/31/21 10:38:00 CDT, Height, 80.909, kg, 08/31/21 10:38:00 CDT, Weight topiramate 0 Yes 100 mg = 1 M emoria 100 mg oral 4-15 tab, PO, l tablet 16:11: BID, # 180 Liss nn 00 tab, 3 Refill(s), Pharmacy: [facility] #[id number], 154.94, cm, 08/31/21 10:38:00 CDT, Height, 80.909, kg, 08/31/21 10:38:00 CDT, Weight Azo-Cranber 2020-1 Yes 0 Memori a ry 0-15 Refill(s) l 15:58: [place] 00 primidone 0 Yes See Memoria 250 mg oral 9-05 Instructio l tablet 20:20: ns, TAKE 1 Liss nn 00 TABLET BY MOUTH TWICE A DAY, # 180 tab, 2 Refill(s), Pharmacy: [facility] [id number], 154.94, cm, 11/03/20 10:49:00 CDT, Height, 80.455, kg, 11/03/20 10:49:00 CDT, Weight topiramate 0 Yes 100 mg = 1 M emoria 100 mg oral 6-18 tab, PO, l tablet 16:04: BID, # 180 Liss nn 00 tab, 3 Refill(s), Pharmacy: [facility] #[id number], 154.94, cm, 11/03/20 10:49:00 CDT, Height, 80.455, kg, 11/03/20 10:49:00 CDT, Weight celecoxib 2020-0 Yes 0 Memoria 100 mg oral 6-18 Refill(s) l capsule 15:52: Cristino 00 propranolol 2020-0 Yes 20 mg = 1 M emoria 20 mg oral 2-19 tab, PO, l tablet 22:20: BID, # 60 [place] n 00 tab, 1 Refill(s) atorvastati 0 Yes 40 mg = 1 M emoria n 40 mg 2-19 tab, PO, l oral tablet 22:20: Bedtime, # Cristino 00 30 tab, 0 Refill(s) PRIMIDONE 2019-05 Yes TAKE 1 Univer s 250 mg 2-16 TABLET BY ity of tablet 00:00: MOUTH [place] 00 TWICE A Medical DAY Branch PRIMIDONE 2019-05 Yes TAKE 1 Univer s 250 mg 2-16 TABLET BY ity of tablet 00:00: MOUTH [place] 00 TWICE A Medical DAY Branch PRIMIDONE 2019-05 Yes TAKE 1 Univer s 250 mg 2-16 TABLET BY ity of tablet 00:00: MOUTH [place] 00 TWICE A Medical DAY Branch PRIMIDONE 2019-05 Yes TAKE 1 Univer s 250 mg 2-16 TABLET BY ity of tablet 00:00: MOUTH [place] 00 TWICE A Medical DAY Branch pumpkin 2020-0 Yes 100mg Take 100 [...] 16:52: every [place] 54 evening. Medical Branch TOPIRAMATE 2020-0 Yes [id number] TAKE 1 U nivers 100 mg 4-02 TABLET BY ity of tablet 00:00: MOUTH [place] 00 TWICE A Medical DAY Branch TOPIRAMATE 2020-0 Yes [id number] TAKE 1 U nivers 100 mg 4-02 TABLET BY ity of tablet 00:00: MOUTH [place] 00 TWICE A Medical DAY Branch TOPIRAMATE 2020-0 Yes [id number] TAKE 1 U nivers 100 mg 4-02 TABLET BY ity of tablet 00:00: MOUTH [place] 00 TWICE A Medical DAY Branch TOPIRAMATE 2020-0 Yes [id number] TAKE 1 U nivers 100 mg 4-02 TABLET BY ity of tablet 00:00: MOUTH [place] 00 TWICE A Medical DAY Branch TOPIRAMATE 2020-0 Yes [id number] TAKE 1 U nivers 100 mg 4-02 TABLET BY ity of tablet 00:00: MOUTH [place] 00 TWICE A Medical DAY Branch TOPIRAMATE 2020-0 Yes [id number] TAKE 1 U nivers 100 mg 4-02 TABLET BY ity of tablet 00:00: MOUTH [place] 00 TWICE A Medical DAY Branch TOPIRAMATE 2020-0 Yes [id number] TAKE 1 U nivers 100 mg 4-02 TABLET BY ity of tablet 00:00: MOUTH [place] 00 TWICE A Medical DAY Branch TOPIRAMATE 2020-0 Yes [id number] TAKE 1 U nivers 100 mg 4-02 TABLET BY ity of tablet 00:00: MOUTH [place] 00 TWICE A Medical DAY Branch TOPIRAMATE 2020-0 Yes [id number] TAKE 1 U nivers 100 mg 4-02 TABLET BY ity of tablet 00:00: MOUTH [place] 00 TWICE A Medical DAY Branch TOPIRAMATE 2020-0 Yes [id number] TAKE 1 U nivers 100 mg 4-02 TABLET BY ity of tablet 00:00: MOUTH [place] 00 TWICE A Medical DAY Branch TOPIRAMATE 2020-0 2020- No [id number] TAKE 1 Univers 100 mg 4-02 04-02 [...] A Medical DAY Branch TOPIRAMATE 2020-0 Yes [id number] TAKE 1 U nivers 100 mg 1-08 TABLET BY ity of tablet 00:00: MOUTH [place] 00 TWICE A Medical DAY Branch TOPIRAMATE 2020-0 Yes [id number] TAKE 1 U nivers 100 mg 1-08 TABLET BY ity of tablet 00:00: MOUTH [place] 00 TWICE A Medical DAY Branch TOPIRAMATE 2020-0 2020- No [id number] TAKE 1 Univers 100 mg 1-08 04-02 TABLET BY ity of tablet 00:00: [...] 16:11: mouth [place] 14 daily. [facility] Yes 1{tbl} Take 1 Uni vers (CLARITIN 7-05 tablet by ity o f ORAL) 16:11: mouth [place] 14 daily. [facility] Yes Take 1 Univ ers ns with 7-05 TAB-CAP/M2 ity of Fluoride 16:11: by mouth [place] (MULTI-HENRIQUE 14 daily. Medica l MIN ORAL) Branch [facility] Yes Take 1 Univ ers ns with 7-05 TAB-CAP/M2 ity of Fluoride 16:11: by mouth [place] (MULTI-HENRIQUE 14 daily. Medica l MIN ORAL) [facility] Yes 1{tbl} Take 1 Uni vers (CLARITIN 7-05 tablet by ity o f ORAL) 16:11: mouth [place] 14 daily. Medical Branch [facility] Yes Take 1 Univ ers ns with 7-05 TAB-CAP/M2 ity of Fluoride 16:11: by mouth [place] (MULTI-HENRIQUE 14 daily. Medica l MIN ORAL) [facility] Yes 1{tbl} Take 1 Uni vers (CLARITIN 7-05 tablet by ity o f ORAL) 16:11: mouth [place] 14 daily. Medical Branch [facility] Yes Take 1 Univ ers ns with 7-05 TAB-CAP/M2 ity of Fluoride 16:11: by mouth [place] (MULTI-HENRIQUE 14 daily. Medica l MIN ORAL) [facility] Yes 1{tbl} Take 1 Uni vers (CLARITIN 7-05 tablet by ity o f ORAL) 16:11: mouth [place] 14 daily. [facility] Yes Take 1 Univ ers ns with 7-05 TAB-CAP/M2 ity of Fluoride 16:11: by mouth [place] (MULTI-HENRIQUE 14 daily. Medica l MIN ORAL) [facility] Yes 1{tbl} Take 1 Uni vers (CLARITIN 7-05 tablet by ity o f ORAL) 16:11: mouth [place] 14 daily. Medical Branch [facility] Yes Take 1 Univ ers ns [...] mouth [place] 34 daily. Medical Branch BABY 2019- Yes 1{tbl} Take 1 Univers ASPIRIN 7-05 [...] 16:09: mouth [place] 34 daily. Medical Branch atorvasta Yes TAKE 1 Univ ers n 40 mg 5-26 TABLET BY ity of tablet 00:00: MOUTH [place] 00 EVERYDAY Medical AT BEDTIME Branch atorvasta Yes TAKE 1 Univ ers n 40 mg 5-26 TABLET BY ity of tablet 00:00: MOUTH [place] 00 EVERYDAY Medical AT BEDTIME Branch atorvasta 0 Yes TAKE 1 Univ ers n 40 mg 5-26 TABLET BY ity of tablet 00:00: MOUTH [place] 00 EVERYDAY Medical AT BEDTIME Branch atorvasta 0 Yes TAKE 1 Univ ers n 40 mg 5-26 TABLET BY ity of tablet 00:00: MOUTH [place] 00 EVERYDAY Medical AT BEDTIME Branch atorvastati 0 Yes TAKE 1 Univ ers n 40 mg 5-26 TABLET BY ity of tablet 00:00: MOUTH [place] 00 EVERYDAY Medical AT BEDTIME Branch atorvastati 2018-0 Yes TAKE 1 Univ ers n 40 mg 5-26 TABLET BY ity of tablet 00:00: MOUTH [place] 00 EVERYDAY Medical AT BEDTIME Branch atorvasta 2018-0 Yes TAKE 1 Univ ers n 40 mg 5-26 TABLET BY ity of tablet 00:00: MOUTH [place] 00 EVERYDAY Medical AT BEDTIME Branch atorvastati 2019-0 Yes TAKE 1 Univ ers n 40 mg 5-26 TABLET BY ity of tablet 00:00: MOUTH [place] 00 EVERYDAY Medical AT BEDTIME Branch atorvastati 2018-0 Yes TAKE 1 Univ ers n 40 mg 5-26 TABLET BY ity of tablet 00:00: MOUTH [place] 00 EVERYDAY Medical AT BEDTIME Branch atorvastati 2018-0 Yes TAKE 1 Univ ers n 40 mg 5-26 TABLET BY ity of tablet 00:00: MOUTH [place] 00 EVERYDAY Medical AT BEDTIME Branch atorvastati 2019-0 Yes TAKE 1 Univ ers n 40 mg 5-26 TABLET BY ity of tablet 00:00: MOUTH [place] 00 EVERYDAY Medical AT BEDTIME Branch atorvastati 2019-0 Yes TAKE 1 Univ ers n 40 mg 5-26 TABLET BY ity of tablet 00:00: MOUTH [place] EVERYDAY Medical AT BEDTIME Branch primidone 2018-0 Yes 250mg Take 1 Unive rs 250 mg 4-04 tablet by ity of tablet 00:00: mouth 2 [place] 00 (two) Medical times Branch daily. primidone [id number] 2020- No 250mg Take 1 Univ ers 250 mg 4-04 - tablet by ity of tablet 00:00: 00:00 mouth 2 [place] 00 :00 (two) Medical times Branch daily. oxybutynin 2017-05 Yes Univers chloride 5 1-27 ity of mg tablet 00:00: [place] [facility] oxybutynin 2017-05 Yes Univers chloride 5 1-27 ity of mg tablet 00:00: [place] [facility] oxybutynin 2017-05 Yes Univers chloride 5 1-27 ity of mg tablet 00:00: [place] [facility] oxybutynin 2017-05 Yes Univers chloride 5 1-27 ity of mg tablet 00:00: [place] [facility] oxybutynin 2017-05 Yes Univers chloride 5 1-27 ity of mg tablet 00:00: [place] [facility] oxybutynin 2017-05 Yes Univers chloride 5 1-27 ity of mg tablet 00:00: [place] [facility] oxybutynin 2017-05 Yes Univers chloride 5 1-27 ity of mg tablet 00:00: [place] [facility] oxybutynin 2017-05 Yes Univers chloride 5 1-27 ity of mg tablet 00:00: [place] [facility] oxybutynin 2017-05 Yes Univers chloride 5 1-27 ity of mg tablet 00:00: [place] [facility] oxybutynin 2017-05 Yes Univers chloride 5 1-27 ity of mg tablet 00:00: [place] [facility] oxybutynin 2017-05 Yes Univers chloride 5 1-27 ity of mg tablet 00:00: [place] [facility] oxybutynin 2017-05 Yes Univers chloride 5 1-27 ity of mg tablet 00:00: [address] topiramate 2017-05 Yes 100 mg = 1 M emoria 100 mg oral 0-31 tab, PO, l tablet 13:31: BID, # 60 [place] n 00 tab, 3 Refill(s), Pharmacy: [id number] propranolol 2017- Yes TAKE 1 Univ ers [...] 00 TWICE A Medical DAY Branch propranolol No See Memori a 120 mg oral 9-27 Instructio l capsule, 13:22: ns, # 180 Herm devin extended 28 unknown release unit, Refill(s) 1, TAKE 1 CAPSULE BY MOUTH TWICE A DAY, 08/03/18 12:52:42 CDT, Pharmacy: [facility] #[id number] primidone 2017- Yes See Memoria 250 mg oral 9-18 Instructio l tablet 13:25: ns, # 180 [place] n 29 tab, Refill(s) 2, TAKE 1 TABLET BY MOUTH TWICE A DAY, [id number] simvastatin Yes TAKE 1 Univ ers 40 mg 9-18 TABLET BY ity of tablet 00:00: MOUTH [place] 00 EVERY Medical EVENING Branch simvastatin Yes TAKE 1 Univ ers 40 mg 9-18 TABLET BY ity of tablet 00:00: MOUTH [place] 00 EVERY Medical EVENING Branch simvastatin Yes TAKE 1 Univ ers 40 mg 9-18 TABLET BY ity of tablet 00:00: MOUTH [place] 00 EVERY Medical EVENING Branch simvastatin 0 Yes TAKE 1 Univ ers 40 mg 9-18 TABLET BY ity of tablet 00:00: MOUTH [place] 00 EVERY Medical EVENING Branch simvastatin Yes TAKE 1 Univ ers 40 mg 9-18 TABLET BY ity of tablet 00:00: MOUTH [place] 00 EVERY Medical EVENING Branch simvastatin 0 Yes TAKE 1 Univ ers 40 mg 9-18 TABLET BY ity of tablet 00:00: MOUTH [place] 00 EVERY Medical EVENING Branch simvastatin 0 Yes TAKE 1 Univ ers 40 mg 9-18 TABLET BY ity of tablet 00:00: MOUTH [place] 00 EVERY Medical EVENING Branch simvastatin 2017-0 Yes TAKE 1 Univ ers 40 mg 9-18 TABLET BY ity of tablet 00:00: MOUTH [place] 00 EVERY Medical EVENING Branch simvastatin 0 Yes TAKE 1 Univ ers 40 mg 9-18 TABLET BY ity of tablet 00:00: MOUTH [place] 00 EVERY Medical EVENING Branch simvastatin 2017-0 Yes TAKE 1 Univ ers 40 mg 9-18 TABLET BY ity of tablet 00:00: MOUTH [place] 00 EVERY Medical EVENING Branch simvastatin 0 Yes TAKE 1 Univ ers 40 mg 9-18 TABLET BY ity of tablet 00:00: MOUTH [place] 00 EVERY Medical EVENING Branch simvastatin 2017-0 Yes TAKE 1 Univ ers 40 mg 9-18 TABLET BY ity of tablet 00:00: MOUTH [place] 00 EVERY Medical EVENING Branch topiramate 2017-0 No See Memoria 25 mg oral 9-17 Instructio l tablet 14:01: ns, # 180 [place] n 58 tab, Refill(s) 2, TAKE 2 TABLETS BY MOUTH AT BEDTIME, 03/18/18 8:31:56 CDT, Pharmacy: [id number] aspirin 81 2018-0 Yes 81 mg = 1 Me moria mg tablet, 3-13 tab, CHEW, l chewable 14:44: Daily, 0 Liss nn 00 Refill(s) Centrum 2018-0 Yes 1 tab, PO, Kaden zehra Silver oral 3-13 Daily, 0 l tablet 14:44: Refill(s) [place] n 00 oxybutynin 2018 Yes 5 mg = 1 Mem oria 5 mg oral 3-13 tab, PO, l tablet 14:44: TID, 0 [place] 00 Refill(s) Immunizations Ordered Filled Immunization Date Status Comments [facility] Immunization Name Name SARS-COV-2 COVID-19 2020-08-17 Completed Unive rsity of PFIZER VACCINE 00:00:00 [facility] [id number] 2020-08-17 Completed Memor ial Cristino [id number] 00:00:00 ER SARS-COV-2 COVID-19 2020-07-27 Completed Unive rsity of PFIZER VACCINE 00:00:00 [facility] [id number] 2020-07-27 Completed Memor ial Cristino [id number] 00:00:00 ER Vital Signs Vital Name Observation Time Observation Value Comments Source Systolic blood 2019-10-12 16:52:00 107 mm[Hg] [facility] Diastolic blood 2019-10-12 16:52:00 77 mm[Hg] [facility] Heart rate 2019-10-12 16:52:00 56 /min [facility] Body temperature 2019-10-12 16:52:00 36.67 [facility] Respiratory rate 2019-10-12 16:52:00 17 /min [facility] Body height 2019-10-12 16:52:00 162.6 cm [facility] Body weight 2019-10-12 16:52:00 75.411 kg [facility] BMI 2019-10-12 16:52:00 28.54 kg/m2 [facility] Systolic (mm Hg) 2022-09-03 14:52:00 Kaden rial [place] Diastolic (mm Hg) 2022-09-03 14:52:00 Mem orial [place] Heart Rate 2022-09-03 14:52:00 [facility] [place] Height 2022-09-03 14:52:00 5 [ft_i] [facility] [place] Weight 2022-09-03 14:52:00 [facility] Cristino BMI Calculated 2022-09-03 14:52:00 Memori al Cristino Systolic (mm Hg) 2022-03-05 16:01:00 Kaden rial Cristino Diastolic (mm Hg) 2022-03-05 16:01:00 Mem orial [place] Heart Rate 2022-03-05 16:01:00 [facility] Cristino Height 2022-03-05 16:01:00 5 [ft_i] [facility] Cristino Weight 2022-03-05 16:01:00 [facility] [place] BMI Calculated 2022-03-05 16:01:00 Memori al Cristino Systolic (mm Hg) 2021-08-31 15:38:00 Kaden rial [place] Diastolic (mm Hg) 2021-08-31 15:38:00 Mem orial [place] Heart Rate 2021-08-31 15:38:00 [facility] [place] Respitory Rate 2021-08-31 15:38:00 Memori al [place] Height 2021-08-31 15:38:00 154.94 cm [facility] Cristino Weight 2021-08-31 15:38:00 [facility] Cristino BMI Calculated 2021-08-31 15:38:00 Memori al Cristino Systolic (mm Hg) 2021-03-02 15:35:00 Kaden rial Cristino Diastolic (mm Hg) 2021-03-02 15:35:00 Mem orial [place] Heart Rate 2021-03-02 15:35:00 [facility] Cristino Respitory Rate 2021-03-02 15:35:00 Memori al Cristino Systolic (mm Hg) 2020-11-03 15:39:00 Kaden rial Cristino Diastolic (mm Hg) 2020-11-03 15:39:00 Mem orial [place] Heart Rate 2020-11-03 15:39:00 [facility] [place] Respitory Rate 2020-11-03 15:39:00 Memori al [place] Height 2020-11-03 15:39:00 154.94 cm [facility] [place] Weight 2020-11-03 15:39:00 [facility] Cristino BMI Calculated 2020-11-03 15:39:00 Memori al Cristino Systolic (mm Hg) 2020-07-07 22:04:00 Kaden drummond [place] Diastolic (mm Hg) 2020-07-07 22:04:00 Mem orial [place] Heart Rate 2020-07-07 22:04:00 [facility] Cristino Respitory Rate 2020-07-07 22:04:00 Memori al Cristino Height 2020-07-07 22:04:00 157.48 cm [facility] Cristino Weight 2020-07-07 22:04:00 [facility] Cristino BMI Calculated 2020-07-07 22:04:00 Oliverori al Cristino Procedures Procedure Date / Time Performing Clinician Source Performed AUTHORIZATION FOR 2020-06-08 06:01:00 Doctor Unassigned, No [facility] Name Medical Branch ASSIGNMENT OF BENEFITS 2019-10-12 16:09:31 Doctor Unassigned, No [facility] Name Medical Branch Encounters Start End Encounter Admission Attending Care Care Encounter Source Date/Time Date/Time Type Type Clinicians Facility Department ID 2023-03-05 2023-03-05 Outpatient MHIE MHIE [id number] Memoria 10:00:00 10:00:00 09 dhara Cristino 2022-09-03 2022-09-04 Outpatient MHIE MNA [id number] Memoria 14:45:00 04:59:59 Neurology 08 dhara Gregg 2022-09-03 2022-09-03 Outpatient RICK Tim MHMISCHER [id number] 09:45:00 23:59:59 Jeevan 08 Osmar 2022-09-03 2022-09-03 Outpatient MHIE MHIE [id number] Memoria 09:45:00 09:45:00 08 dhara Gregg 2022-03-05 2022-03-06 Outpatient nullFlavo MNA [id number] Memoria 15:45:00 04:59:59 r Neurology 07 l Marjorie Gregg 2022-03-05 2022-03-05 Outpatient RICK Tim MHMISCHER [id number] 10:45:00 23:59:59 Jeevan 07 Osmar 2022-03-05 2022-03-05 Outpatient MHIE MHIE [id number] Memoria 10:45:00 10:45:00 07 dhara Cristino 2021-08-31 2021-09-01 Outpatient nullFlavo MNA [id number] Memoria 15:30:00 04:59:59 r Neurology 06 l Hollywood Cristino 2021-08-31 2021-08-31 [id number] 10:30:00 23:59:59 Jeevan 06 Osmar 2021-08-31 2021-08-31 Outpatient MHIE MHIE [id number] Memoria 10:30:00 10:30:00 06 dhara Cristino 2021-03-02 2021-03-03 Outpatient nullFlavo MNA [id number] Memoria 15:30:00 04:59:59 r Neurology 05 dhara Marjorie Gregg 2021-03-02 2021-03-02 [id number] 10:30:00 23:59:59 Jeevan 05 Osmar 2021-03-02 2021-03-02 Outpatient MHIE MHIE [id number] Memoria 10:30:00 10:30:00 05 dhara Cristino 2020-11-03 2020-11-04 Outpatient nullFlavo MNA [id number] Memoria 15:30:00 04:59:59 r Neurology 04 l Marjorie Gregg 2020-11-03 2020-11-03 Outpatient RICK [id number] 10:30:00 23:59:59 Jeevan 04 Osmar 2020-11-03 2020-11-03 Outpatient MHIE MHIE [id number] Memoria 10:30:00 10:30:00 04 dhara Cristino 2020-10-29 2020-10-29 Mary Vaughn FLZACARIAS [id number] Univers 00:00:00 00:00:00 Leandro [facility]donnell [id number] [facility] [id number] [phone] [address] 2020-08-17 2020-08-17 Outpatient Jasiel LR [facility] [id number] Univers 14:40:00 14:40:00 TIFFANIE [facility] 2020-07-27 2020-07-27 Outpatient Jasiel LR [facility] [id number] Univers 14:50:00 14:50:00 TIFFANIE [facility] 2020-07-07 2020-07-08 Outpatient nullFlavo MNA [id number] Memoria 22:00:00 05:59:59 r Neurology 03 l Hollywoodjez Gregg 2020-07-07 2020-07-07 Outpatient Meeta, MISCHER MHMISCHER [id number] 16:00:00 23:59:59 Jeevan 03 Osmar 2020-07-07 2020-07-07 Outpatient MHIE MHIE [id number] Memoria 16:00:00 16:00:00 03 l Cristino 2020-06-09 2020-06-09 [facility] [id number] Univers 00:00:00 00:00:00 Leandro Odonnell [id number] [id number] [phone] [address] 2020-06-08 2020-06-08 Orders Doctor CHELI 1.2.840.114 [id number] Univers 00:00:00 00:00:00 Only Unassigned, CHARMAINE [id number] ity of [place] [facility] [id number] Krystian as [phone] [address] 2020-05-03 2020-05-03 [facility] [id number] Univers 00:00:00 00:00:00 Leandro Odonnell [id number] [id number] [phone] [address] 2019-10-13 2019-10-13 Timber Sizer Operator 2, Adc Lab [facility] 1.2.840.114 [id number] Univers 11:06:53 11:21:53 Visit Leandro Vaughn Radhames Odonnell [id number] [id number] [phone] Mo dical nal 353 [facility] 2019-10-13 2019-10-13 Outpatient R LEANDRO VAUGHN [facility] [id number] Univers 10:30:00 10:30:00 LEANDRO VAUGHN ity [facility] 2019-10-12 2019-10-12 Office Roderick [facility] [id number] Univers 11:09:36 11:59:41 Visit Leandro Odonnell [id number] [id number] [phone] [facility] [address] [place] [address] 2019-10-12 2019-10-12 Outpatient LEANDRO ALVARADO [facility] [id number] Univers 11:00:00 11:00:00 LEANDRO VAUGHN ity [facility] 2019-10-12 2019-10-12 Orders Doctor CHELI 1.2.840.114 [id number] Univers 00:00:00 00:00:00 Only Unassigned, CHARMAINE [id number] [facility] [id number] Krystian as [phone] [address] 2019-08-19 2019-08-19 Refill Roderick [facility] [id number] Univers 00:00:00 00:00:00 Leandro Odonnell [id number] [id number] [phone] Mo dicca nal 092 [facility] 2019-08-19 2019-08-19 Refill Roderick [facility] 1.2.840.114 [id number] Univers 00:00:00 00:00:00 Leandro Odonnell [id number] [id number] [phone] [facility] [address] [place] [address] 2019-08-09 2019-08-09 [facility] [id number] Univers 00:00:00 00:00:00 Leandro Odonnell [id number] [id number] [phone] Mo dical nal 092 [facility] 2019-07-31 2019-07-31 [facility] [id number] Univers 00:00:00 00:00:00 Leandro Odonnell [id number] [id number] [phone] Mo dical nal 2 [facility] 2018-11-03 2018-11-05 Outside nullFlavo MNA [id number] Memoria 13:16:15 04:59:59 Medical r Neurology 03 l Records [place] Cristino 2018-11-03 2018-11-04 Outpatient MHMISCHER MHMISCHER [id number] 08:16:15 23:59:59 03 2018-05-05 2018-05-05 Ambulatory nullFlavo MNA [id number] Memoria 17:30:00 17:30:00 Pre-Reg r Neurology 02 dhara [place] Cristino 2018-05-05 2018-05-05 Outpatient MHIE MHIE [id number] [facility] 11:30:00 11:30:00 02 dhara Gregg 2018-05-05 2018-05-05 Outpatient Meeta, MHMISCHER MHMISCHER [id number] 11:30:00 11:30:00 Jeevan Jose G Prasad 2018-04-02 2018-04-04 Phone nullFlavo MNA [id number] Memoria 16:32:00 05:59:59 Message r Neurology 01 l [place] Cristino 2018-04-02 2018-04-03 Outpatient MHMISCHER MHMISCHER [id number] 10:32:00 23:59:59 2018-03-17 2018-03-19 Phone nullFlavo MNA [id number] Memoria 23:20:00 04:59:59 Message r Neurology 00 l [place] Cristino 2018-03-17 2018-03-18 Outpatient MHMISCHER MHMISCHER [id number] 18:20:00 23:59:59 00 2017-12-09 2017-12-09 Outpatient [facility] [id number] Mem[facility] 11:45:00 11:45:00 01 dhara Gregg 2017-08-07 2017-08-07 Outpatient [facility] [id number] [facility] 09:30:00 09:30:00 00 dhara Gregg Results This patient has no known results.
--- NOTE | 2022-12-03 13:45 | RAD REPORT ---
EXAM DESCRIPTION: RAD - Hip Left 2 View - 12/03/2022 1:24 pm CLINICAL HISTORY: PAIN COMPARISON: <Comparisons> FINDINGS: Mild left hip arthritic changes are present. No acute fracture or dislocation is seen. No AVN pattern observed.
--- NOTE | 2022-12-03 13:56 | ER ---
Nurse's Notes [facility] Name: Neeta Olson Age: 81 yrs Sex: Female : 1940 Arrival Date: 12/03/2022 Time: 11:58 Bed 9 Private MD: Silverio Camacho C Diagnosis: Pain in left hip;Osteoarthritis of hip, unspecified Presentation: 12/03 12:08 Chief complaint: Patient states: left hip pain x 1 week ago, Pt states "I need a aa5 cortisone shot in my hip". Pt's daughter states "we tried to go see Dr. Cordero (ortho) but he's out of town for 2 weeks". Denies known injury. Coronavirus screen: At this time, the client does not indicate any symptoms associated with coronavirus-19. Ebola Screen: Patient denies travel to an Ebola-affected area in the 21 days before illness onset. Initial Sepsis Screen: Does the patient meet any 2 criteria? No. Patient's initial sepsis screen is negative. Does the patient have a suspected source of infection? No. Patient's initial sepsis screen is negative. Risk Assessment: Do you want to hurt yourself or someone else? Patient reports no desire to harm self or others. Onset of symptoms was November 2022. 12:08 Acuity: FLAVIA 4 aa5 12:08 Method Of Arrival: Wheelchair aa5 Triage Assessment: 12:52 General: Appears in no apparent distress. uncomfortable, Behavior is calm, cooperative, ko1 appropriate for age. Pain: Complains of pain in left hip. EENT: No deficits noted. Neuro: No deficits noted. Cardiovascular: No deficits noted. Respiratory: No deficits noted. GI: No deficits noted. : No deficits noted. Derm: No deficits noted. Musculoskeletal: Reports pain in left hip. Historical: - Allergies: 12:09 Sulfa (Sulfonamide Antibiotics); aa5 - PMHx: 12:09 Glaucoma; lymphedema; tremors; aa5 - PSHx: 12:11 jesika knee replacement; aa5 - Immunization history:: Adult Immunizations up to date. - Social history:: Smoking status: Patient denies any tobacco usage or history of. - Family history:: not pertinent. - Hospitalizations: : No recent hospitalization is reported. Screenin:53 [facility] ED Fall Risk Assessment (Adult) History of falling in the last 3 months, ko1 including since admission No falls in past 3 months (0 pts) Confusion or Disorientation No (0 pts) Intoxicated or Sedated No (0 pts) Impaired Gait Yes (1 pt) Mobility Assist Device Used Yes (1 pt) Altered Elimination No (0 pt) Score/Fall Risk Level 0 - 2 = Low Risk Oriented to surroundings, Maintained a safe environment, Educated pt \\T\\ family on fall prevention, incl call for assistance when getting out of bed, Assessed \\T\\ reinforced patient's understanding of fall precautions, Provided non-skid footwear, Hourly rounding (assess needs \\T\\ fall precautionary measures) done, Used ambulatory aids as needed (educated on \\T\\ assisted with). Abuse screen: Denies threats or abuse. Denies injuries from another. Nutritional screening: No deficits noted. Tuberculosis screening: No symptoms or risk factors identified. Assessment: 12:53 Neuro: No deficits noted. Cardiovascular: No deficits noted. Respiratory: No deficits ko1 noted. GI: No deficits noted. : No deficits noted. EENT: No deficits noted. Derm: No deficits noted. Musculoskeletal: Reports pain in left hip. Vital Signs: 12:08 BP 109 / 86; Pulse 76; Resp 18 S; Temp 97.7(TE); Pulse Ox 96% on R/A; aa5 14:03 BP 107 / 72; Pulse 70; Resp 16; Pulse Ox 99% ; ko1 ED Course: 11:59 Patient arrived in ED. am2 12:00 Silverio Camacho MD is Private Physician. am2 12:08 Arm band placed on. aa5 12:09 Keith Post MD is Attending Physician. rn 12:09 Triage completed. aa5 12:40 Zohra Leigh, KAREEM is Primary Nurse. ko1 12:53 Patient has correct armband on for positive identification. Bed in low position. Call ko1 light in reach. Provided Education on: NA. 13:26 XRAY Hip LEFT 2 view In Process Unspecified. EDMS 14:03 No provider procedures requiring assistance completed. Patient did not have IV access ko1 during this emergency room visit. Administered Medications: 14:06 Drug: Ketorolac IM 15 mg Route: IM; Site: right deltoid; ko1 Medication: 14:03 VIS not applicable for this client. ko1 Outcome: 13:56 Discharge ordered by . rn 14:19 Discharged to home via wheelchair, with family. ko1 14:19 Condition: stable 14:19 Discharge instructions given to patient, family, Instructed on discharge instructions, follow up and referral plans. Demonstrated understanding of instructions, follow-up care. 14:19 Patient left the ED. ko1 Signatures: Dispatcher [employer] EDKeith Rudolph MD MD rn Calderon, Audri RN RN [email or web address] Jeanine Thompson Kathy, RN RN ko1 Corrections: (The following items were deleted from the chart) 12:10 12:08 Chief complaint: Patient states: left hip pain x 1 week ago, Pt states "I need a aa5 cortisone shot in my hip". Pt's daughter states "we tried to go see Dr. Cordero (ortho) but he's out of town for 2 weeks" aa5
--- NOTE | 2022-12-03 13:56 | EDPHYS ---
Physician Documentation [facility] Name: Neeta Olson Age: 81 yrs Sex: Female : 1940 Arrival Date: 12/03/2022 Time: 11:58 Bed 9 Private MD: Silverio Camacho C ED Physician Keith Post HPI: 12/03 13:39 This 81 yrs old Female presents to ER via Wheelchair with complaints of Hip Pain. rn 13:39 The patient or guardian reports pain. The complaints affect the left hip. Onset: The rn symptoms/episode began/occurred 5 day(s) ago. Modifying factors: The symptoms are alleviated by remaining still, the symptoms are aggravated by weight bearing. Severity of symptoms: At their worst the symptoms were moderate, in the emergency department the symptoms are unchanged. The patient has experienced similar episodes in the past. The patient has not recently seen a physician. Pt reports left hip pain, no injury or fall, has had similar pain in right hip and steroid shot helped, her orthopedist is out of town so came here to see if can get a steroid shot. No weakness. . Historical: - Allergies: 12:09 Sulfa (Sulfonamide Antibiotics); aa5 - PMHx: 12:09 Glaucoma; lymphedema; tremors; aa5 - PSHx: 12:11 jesika knee replacement; aa5 - Immunization history:: Adult Immunizations up to date. - Social history:: Smoking status: Patient denies any tobacco usage or history of. - Family history:: not pertinent. - Hospitalizations: : No recent hospitalization is reported. ROS: 13:40 Constitutional: Negative for fever, chills, and weight loss, Back: Negative for injury rn and pain, MS/Extremity: + left hip pain Skin: Negative for injury, rash, and discoloration, Neuro: Negative for headache, weakness, numbness, tingling, and seizure. Exam: 13:40 Constitutional: This is a well developed, well nourished patient who is awake, alert, rn and in no acute distress. MS/ Extremity: Pulses equal, no cyanosis. Neurovascular intact. Full, normal range of motion. Equal circumference. No swelling of left leg, FROM at knee and hip. No discoloration. Vital Signs: 12:08 BP 109 / 86; Pulse 76; Resp 18 S; Temp 97.7(TE); Pulse Ox 96% on R/A; aa5 14:03 BP 107 / 72; Pulse 70; Resp 16; Pulse Ox 99% ; ko1 MDM: 12:09 Patient medically screened. rn 13:55 Differential diagnosis: hip fracture, bursitis, arthritis, strain. Data reviewed: vital rn signs, nurses notes, radiologic studies, plain films, and as a result, I will discharge patient. Counseling: I had a detailed discussion with the patient and/or guardian regarding: the historical points, exam findings, and any diagnostic results supporting the discharge/admit diagnosis, radiology results, the need for outpatient follow up, to return to the emergency department if symptoms worsen or persist or if there are any questions or concerns that arise at home. Special discussion: I discussed with the patient/guardian in detail that at this point there is no indication for admission to the hospital. It is understood, however, that if the symptoms persist or worsen the patient needs to return immediately for re-evaluation. Based on the history and exam findings, there is no indication for further emergent testing or inpatient evaluation. I discussed with the patient/guardian the need to see the orthopedic surgeon for further evaluation of the symptoms. 12/03 12:18 Order name: XRAY Hip LEFT 2 view; Complete Time: 13:48 rn Administered Medications: 14:06 Drug: Ketorolac IM 15 mg Route: IM; Site: right deltoid; ko1 Disposition Summary: 12/03/22 13:56 Discharge Ordered Location: Home rn Problem: an ongoing problem rn Symptoms: have improved rn Condition: Stable rn Diagnosis - Pain in left hip rn - Osteoarthritis of hip, unspecified rn Followup: rn - With: Private Physician - When: As needed - Reason: Recheck today's complaints, Re-evaluation by your physician Discharge Instructions: - Discharge Summary Sheet rn - Arthritis rn - Musculoskeletal Pain rn - Osteoarthritis rn Forms: - Medication Reconciliation Form rn - Thank You Letter rn - Antibiotic coke burner - Prescription Opioid Use rn - Patient Portal Instructions rn Signatures: Dispatcher [employer] Keith Johnson MD MD rn Calderon, Audri RN RN aa5 Zohra Leigh, RN RN ko1
[2022-12-03] MEDS ORDERED: KETOROLAC 30 MG/ML INJ ONE (14:06)
[2022-12-03 14:51] VITALS: TEMP 97.7
[2022-12-03 14:52] VITALS: BP 107/72; O2SAT 99
== END 2022-12-03 14:19 | disposition home or self-care (01) ==
LOC: ER 11:58
DX: M16.12 Unilateral primary osteoarthritis, left hip (principal); Z96.643 Presence of artificial hip joint, bilateral; Z88.2 Allergy status to sulfonamides
CPT/HCPCS: 96372; 99284

== ENCOUNTER 2023-03-20 19:12 | Emergency (ER) | payer OTHER ==
--- OUTSIDE RECORDS SUMMARY | 2023-03-20 19:15 | XMS REPORT | Continuity of Care Document ---
:1940 Author Organization [facility] t Address [address] [place] [address] [place] [id number] Care Team Providers Name Role Phone Meeta Jeevan Osmar Attending Clinician Roderick LOUISE, Leandro Ricci Attending Clinician TIFFANIE LR Attending Clinician Unavailable Doctor Unassigned, Anson Attending Clinician Unavailable 2, [facility] Attending Clinician Unavailable LEANDRO VAUGHN Attending Clinician Unavailable LEANDRO VAUGHN Attending Clinician Unavailable Payers Payer Name Policy Type Policy Number Effective Date Expiration Date S ource Problems Condition Condition Condition Status Onset Resolution Last Treating Co mments Source Name Details Category Date Date Treatment Clinician Date 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 00:00: Herm devin myelopathy myelopathy 00 (disorder) (disorder) Active 03/31/2015 Problem 03/08/2023 [place] [facility] 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 tremor - 14:12:46 l (disorder) (disorder) 00:00: He rmann Active 00 03/31/2015 Problem 03/08/2023 [place] [facility] Hyperlipid Hyperlipi Problem Active 2014-052023-03-08 Memoria emia demia - 14:12:46 l (disorder) (disorder) 00:00: He rmann Active 00 03/31/2015 Problem 03/08/2023 [place] [facility] Hypertensi Hypertens Problem Active 2023-03-08 Memoria ve beni 14:12:46 l disorder, disorder, Herm devin systemic systemic arterial arterial (disorder) (disorder) Active Problem 03/08/2023 [facility],Kaden rial [facility] Allergies, Adverse Reactions, Alerts Allergy Allergy Status [...] sulfa sulfa Active Memoria drugs drugs l [place] Social History Social Habit Start Date Stop Date Quantity Comments Source Exposure to Not sure [facility] SARS-CoV-2 (event) Medica l Branch Tobacco use and 2018-05-22 2018-05-22 Never used [facility] exposure 00:00:00 00:00:00 [facility] Sex Assigned At [birth year] [facility] 00:00:00 00:00:00 [facility] Smoking Status Start Date Stop Date Source Tobacco smoking status [facility] Medications Ordered Filled Start Stop Current Ordering Indication Dosage Frequency Signature Comments Components Source Medication Medication Date Date Medication? Clinician (SIG) Name Name primidone 2022-05 Yes = 1 tab, Kaden zehra 250 mg oral 0-18 PO, BID, # l tablet 15:18: 180 tab, 2 Liss nn 00 Refill(s), Pharmacy: [facility] #[id number], 154.94, cm, 03/05/23 9:56:00 CDT, Height, 79.545, kg, 03/05/23 9:56:00 CDT, Weight non-formula 2022-05 Yes balance of Memoria ry 0-18 nature, l 15:01: Refill(s) [place] 00 0 Prevagen 2022-05 Yes 50 Memoria 0-18 microgram, l 15:01: PO, Daily, [place] 00 0 Refill(s) topiramate Yes 100 mg = 1 M emoria 100 mg oral 4-18 tab, PO, l tablet 15:09: BID, # 180 [place] 00 tab, 3 Refill(s), Pharmacy: [facility] #[id number], 154.94, cm, 09/03/22 9:56:00 CDT, Height, 81.818, kg, 09/03/22 9:56:00 CDT, Weight topiramate 0 Yes 100 mg = 1 M emoria 100 mg oral 4-18 tab, PO, l tablet 15:09: BID, # 180 [place] 00 tab, 3 Refill(s), [facility]acy: [facility] #[id number], 154.94, cm, 09/03/22 9:56:00 CDT, Height, 81.818, kg, 09/03/22 9:56:00 CDT, Weight Prevagen 0 Yes 50 Memoria 4-18 microgram, l 15:01: PO, Daily, [place] 00 0 Refill(s) Prevagen 0 Yes 50 Memoria 4-18 microgram, l 15:01: PO, Daily, [place] 00 0 Refill(s) primidone 0 Yes = 1 tab, Kaden zehra 250 mg oral 1-31 PO, BID, # l tablet 16:55: 180 tab, 2 Liss nn 00 Refill(s), [id number], 154.94, cm, 03/05/22 11:11:00 CDT, Height, 80.455, kg, 03/05/22 11:11:00 CDT, Weight primidone 0 Yes = 1 tab, Kaden zehra 250 mg oral 1-31 PO, BID, # l tablet 16:55: 180 tab, 2 Liss nn 00 Refill(s), [facility]acy[facility] [id number], 154.94, cm, 03/05/22 11:11:00 CDT, Height, 80.455, kg, 03/05/22 11:11:00 CDT, Weight primidone 2021-0 Yes See Memoria 250 mg oral 4-15 Instructio l tablet 16:11: ns, TAKE 1 Liss nn 00 TABLET BY MOUTH TWICE A DAY, # 180 tab, 2 Refill(s), Pharmacy: [facility] #[id number], 154.94, cm, 08/31/21 10:38:00 CDT, Height, 80.909, kg, 08/31/21 10:38:00 CDT, Weight topiramate 2022-0 Yes 100 mg = 1 M emoria 100 mg oral 4-15 tab, PO, l tablet 16:11: BID, # 180 [place] nn 00 tab, 3 Refill(s), Pharmacy: [facility] #[id number], 154.94, cm, 08/31/21 10:38:00 CDT, Height, 80.909, kg, 08/31/21 10:38:00 CDT, Weight primidone 0 Yes See Memoria 250 mg oral 4-15 Instructio l tablet 16:11: ns, TAKE 1 Liss nn 00 TABLET BY MOUTH TWICE A DAY, # 180 tab, 2 Refill(s), Pharmacy: [facility] #[id number], 154.94, cm, 08/31/21 10:38:00 CDT, Height, 80.909, kg, 08/31/21 10:38:00 CDT, Weight topiramate Yes 100 mg = 1 M emoria 100 mg oral 4-15 tab, PO, l tablet 16:11: BID, # 180 [place] nn 00 tab, 3 Refill(s), Pharmacy: [facility] #[id number], 154.94, cm, 08/31/21 10:38:00 CDT, Height, 80.909, kg, 08/31/21 10:38:00 CDT, Weight Azo-Cranber 1 Yes 0 Memori a ry 0-15 Refill(s) l 15:58: [place] 00 Azo-Cranber 2020-1 Yes 0 Memori a ry 0-15 Refill(s) l 15:58: [place] 00 primidone 2020-0 Yes See Memoria 250 mg oral 9-05 Instructio l tablet 20:20: ns, TAKE 1 Liss nn 00 TABLET BY MOUTH TWICE A DAY, # 180 tab, 2 Refill(s), Pharmacy: [facility] STORE [id number], 154.94, cm, 11/03/20 10:49:00 CDT, Height, 80.455, kg, 11/03/20 10:49:00 CDT, Weight primidone 2020-0 Yes See Memoria 250 mg oral 9-05 Instructio l tablet 20:20: ns, TAKE 1 Liss nn 00 TABLET BY MOUTH TWICE A DAY, # 180 tab, 2 Refill(s), [facility]acy: [id number], 154.94, cm, 11/03/20 10:49:00 CDT, Height, 80.455, kg, 11/03/20 10:49:00 CDT, Weight topiramate 0 Yes 100 mg = 1 M emoria 100 mg oral 6-18 tab, PO, l tablet 16:04: BID, # 180 [place] nn 00 tab, 3 Refill(s), Pharmacy: [facility] #[id number], 154.94, cm, 11/03/20 10:49:00 CDT, Height, 80.455, kg, 11/03/20 10:49:00 CDT, Weight topiramate 0 Yes 100 mg = 1 M emoria 100 mg oral 6-18 tab, PO, l tablet 16:04: BID, # 180 [place] nn 00 tab, 3 Refill(s), Pharmacy: [facility] #[id number], 154.94, cm, 11/03/20 10:49:00 CDT, Height, 80.455, kg, 11/03/20 10:49:00 CDT, Weight celecoxib 2020-0 Yes 0 Memoria 100 mg oral 6-18 Refill(s) l capsule 15:52: [place] 00 celecoxib 2020-0 Yes 0 Memoria 100 mg oral 6-18 Refill(s) l capsule 15:52: [place] 00 propranolol 2020-0 Yes 20 mg = 1 M emoria 20 mg oral 2-19 tab, PO, l tablet 22:20: BID, # 60 [place] 00 tab, 1 Refill(s) atorvastati 2020-0 Yes 40 mg = 1 M emoria n 40 mg 2-19 tab, PO, l oral tablet 22:20: Bedtime, # [place] 00 30 tab, 0 Refill(s) propranolol 2020-0 Yes 20 mg = 1 M emoria 20 mg oral 2-19 tab, PO, l tablet 22:20: BID, # 60 [place] n 00 tab, 1 Refill(s) atorvastati 2020-0 Yes 40 mg = 1 M emoria n 40 mg 2-19 tab, PO, l oral tablet 22:20: Bedtime, # [place] 00 30 tab, 0 Refill(s) PRIMIDONE 2020-1 Yes TAKE 1 Univer s [...] 54 evening. Medical Branch TOPIRAMATE 2020-0 Yes [id number] TAKE 1 U nivers 100 mg 4-02 TABLET BY ity of tablet 00:00: MOUTH [place] 00 TWICE A Medical DAY Branch TOPIRAMATE 2020-0 Yes [id number] TAKE 1 U nivers 100 mg 4-02 TABLET BY ity of tablet 00:00: MOUTH [place] 00 TWICE A Medical DAY Branch TOPIRAMATE 2020-0 Yes [id number] TAKE 1 U nivers 100 mg 4-02 TABLET BY ity of tablet 00:00: MOUTH [place] 00 TWICE A Medical DAY Branch TOPIRAMATE 2020-0 Yes [id number] TAKE 1 U nivers 100 mg 4-02 TABLET BY ity of tablet 00:00: MOUTH [place] 00 TWICE A Medical DAY Branch TOPIRAMATE 2020-0 Yes [id number] TAKE 1 U nivers 100 mg 4-02 TABLET BY ity of tablet 00:00: MOUTH [place] 00 TWICE A Medical DAY Branch TOPIRAMATE 2020-0 Yes [id number] TAKE 1 U nivers 100 mg 4-02 TABLET BY ity of tablet 00:00: MOUTH [place] 00 TWICE A Medical DAY Branch TOPIRAMATE 2020-0 Yes [id number] TAKE 1 U nivers 100 mg 4-02 TABLET BY ity of tablet 00:00: MOUTH 00 TWICE A Medical DAY Branch TOPIRAMATE 2020-0 Yes [id number] TAKE 1 U nivers 100 mg 4-02 TABLET BY ity of tablet 00:00: MOUTH 00 TWICE A Medical DAY Branch TOPIRAMATE 2020-0 Yes [id number] TAKE 1 U nivers 100 mg 4-02 TABLET BY ity of tablet 00:00: MOUTH 00 TWICE A Medical DAY Branch TOPIRAMATE 2020-0 Yes [id number] TAKE 1 U nivers 100 mg 4-02 TABLET BY ity of tablet 00:00: MOUTH 00 TWICE A Medical DAY Branch TOPIRAMATE 2020-0 2020- No [id number] TAKE 1 Univers 100 mg 4-02 04-02 [...] A Medical DAY Branch TOPIRAMATE 2020-0 Yes [id number] TAKE 1 U nivers 100 mg 1-08 TABLET BY ity of tablet 00:00: MOUTH 00 TWICE A Medical DAY Branch TOPIRAMATE 2020-0 Yes [id number] TAKE 1 U nivers 100 mg -08 TABLET BY ity of tablet 00:00: MOUTH [place] 00 TWICE A Medical DAY Branch TOPIRAMATE 2020- No [id number] TAKE 1 Univers 100 mg 1-08 04-02 [...] 16:11: mouth [place] 14 daily. Medical Branch Multivitama Yes Take 1 Univ ers ns with 7-05 TAB-CAP/M2 ity of Fluoride 16:11: by mouth [place] (MULTI-HENRIQUE 14 daily. Medica l MIN ORAL) Branch Multivitama Yes Take 1 Univ ers ns with 7-05 TAB-CAP/M2 ity of Fluoride 16:11: by mouth [place] (MULTI-HENRIQUE 14 daily. Medica l MIN ORAL) Branch loratadine Yes 1{tbl} Take 1 Uni vers (CLARITIN 7-05 tablet by ity o f ORAL) 16:11: mouth [place] 14 daily. Medical Branch [facility] Yes Take 1 Univ ers ns with 7-05 TAB-CAP/M2 ity of Fluoride 16:11: by mouth [place] (MULTI-HENRIQUE 14 daily. Medica l MIN ORAL) Branch loratadine Yes 1{tbl} Take 1 Uni vers (CLARITIN 7-05 tablet by ity o f ORAL) 16:11: mouth [place] 14 daily. [facility] Take 1 Univ ers ns with 7-05 TAB-CAP/M2 ity of Fluoride 16:11: by mouth [place] (MULTI-HENRIQUE 14 daily. Medica l MIN ORAL) Branch loratadine Yes 1{tbl} Take 1 Uni vers (CLARITIN 7-05 tablet by ity o f ORAL) 16:11: mouth [place] 14 daily. Medical [place] [facility] Take 1 Univ ers ns with 7-05 TAB-CAP/M2 ity of Fluoride 16:11: by mouth [place] (MULTI-HENRIQUE 14 daily. Medica l MIN ORAL) Branch loratadine Yes 1{tbl} Take 1 Uni vers (CLARITIN 7-05 tablet by ity o f ORAL) 16:11: mouth [place] 14 daily. [facility] Multivitama Yes Take 1 Univ ers ns with 7-05 TAB-CAP/M2 ity of Fluoride 16:11: by mouth [place] (MULTI-HENRIQUE 14 daily. Medica l MIN ORAL) Branch loratadine Yes 1{tbl} Take 1 Uni vers (CLARITIN 7-05 tablet by ity o f ORAL) 16:11: mouth [place] 14 [facility]. [facility] [...] mouth [place] 34 daily. Medical Branch BABY 2019-0 Yes 1{tbl} Take 1 Univers ASPIRIN 7-05 [...] [place] 00 EVERYDAY Medical AT BEDTIME Branch primidone 2019-0 Yes 250mg Take 1 Unive rs 250 mg 4-04 tablet by ity of tablet 00:00: mouth 2 [place] 00 (two) Medical times [place] daily. primidone 2019-0 2020- No 250mg Take 1 Univ ers 250 mg 4-08 19- tablet by ity of tablet 00:00: 00:00 mouth 2 [place] 00 :00 (two) Medical times [place] daily. oxybutynin 2017-05 Yes Univers chloride 5 1-27 ity of mg tablet 00:00: [place] [facility] oxybutynin 2017-05 Yes Univers chloride 5 1-27 ity of mg tablet 00:00: [place] [facility] oxybutynin 2017-05 Yes Univers chloride 5 1-27 ity of mg tablet 00:00: [place] [facility] oxybutynin 2017-05 Yes Univers chloride 5 1-27 ity of mg tablet 00:00: [place] [facility] oxybutynin 2017-05 Yes Univers chloride 5 1-27 ity of mg tablet 00:00: [place] [facility] oxybutynin 2017-05 Yes Univers chloride 5 1-27 ity of mg tablet 00:00: [place] [facility] oxybutynin 2017-05 Yes Univers chloride 5 1-27 ity of mg tablet 00:00: [place] [facility] oxybutynin 2017-05 Yes Univers chloride 5 1-27 ity of mg tablet 00:00: [place] [facility] oxybutynin 2017-05 Yes Univers chloride 5 1-27 ity of mg tablet 00:00: [place] [facility] oxybutynin 2017-05 Yes Univers chloride 5 1-27 ity of mg tablet 00:00: [place] [facility] oxybutynin 2017-05 Yes Univers chloride 5 1-27 ity of mg tablet 00:00: [place] [facility] oxybutynin 2017-05 Yes Univers chloride 5 1-27 ity of mg tablet 00:00: [place] [facility] topiramate 2017-05 Yes 100 mg = 1 M emoria 100 mg oral 0-31 tab, PO, l tablet 13:31: BID, # 60 [place] 00 tab, 3 Refill(s), Pharmacy: [facility] #[id number] topiramate 2017-05 Yes 100 mg = 1 M emoria 100 mg oral 0-31 tab, PO, l tablet 13:31: BID, # 60 [place] 00 tab, 3 Refill(s), Pharmacy: [facility] #[id number] propranolol 2017- Yes TAKE 1 Univ [...] TWICE A DAY, 08/03/18 12:52:42 CDT, Pharmacy: [facility] #[id number] propranolol 2017-0 No See Memori a 120 mg oral 9-27 Instructio l capsule, 13:22: ns, # 180 Herm devin extended 28 unknown release unit, Refill(s) 1, TAKE 1 CAPSULE BY MOUTH TWICE A DAY, 08/03/18 12:52:42 CDT, Pharmacy: [facility] #[id number] primidone 0 Yes See Memoria 250 mg oral 9-18 Instructio l tablet 13:25: ns, # 180 [place] n 29 tab, Refill(s) 2, TAKE 1 TABLET BY MOUTH TWICE A DAY, Pharmacy: [facility] #[id number] primidone 0 Yes See Memoria 250 mg oral 9-18 Instructio l tablet 13:25: ns, # 180 [place] n 29 tab, Refill(s) 2, TAKE 1 TABLET BY MOUTH TWICE A DAY, Pharmacy: [facility] #[id number] simvastatin 2017-0 Yes TAKE 1 Univ ers 40 mg 9-18 TABLET BY ity of tablet 00:00: MOUTH [place] 00 EVERY Medical EVENING Branch simvastatin 2018-0 Yes TAKE 1 Univ ers 40 mg 9-18 TABLET BY ity of tablet 00:00: MOUTH [place] 00 EVERY Medical EVENING Branch simvastatin 2018-0 Yes TAKE 1 Univ ers 40 mg 9-18 TABLET BY ity of tablet 00:00: MOUTH [place] 00 EVERY Medical EVENING Branch simvastatin 2018-0 Yes TAKE 1 Univ ers 40 mg 9-18 TABLET BY ity of tablet 00:00: MOUTH [place] 00 EVERY Medical EVENING Branch simvastatin 2018-0 Yes TAKE 1 Univ ers 40 mg 9-18 TABLET BY ity of tablet 00:00: MOUTH [place] 00 EVERY Medical EVENING Branch simvastatin 2018-0 Yes TAKE 1 Univ ers 40 mg 9-18 TABLET BY ity of tablet 00:00: MOUTH [place] 00 EVERY Medical EVENING Branch simvastatin 2018-0 Yes TAKE 1 Univ ers 40 mg 9-18 TABLET BY ity of tablet 00:00: MOUTH [place] 00 EVERY Medical EVENING Branch simvastatin 2018-0 Yes TAKE 1 Univ ers 40 mg 9-18 TABLET BY ity of tablet 00:00: MOUTH [place] 00 EVERY Medical EVENING Branch simvastatin 2018-0 Yes TAKE 1 Univ ers 40 mg 9-18 TABLET BY ity of tablet 00:00: MOUTH [place] 00 EVERY Medical EVENING Branch simvastatin 2018-0 Yes TAKE 1 Univ ers 40 mg 9-18 TABLET BY ity of tablet 00:00: MOUTH EVERY Medical EVENING Branch simvastatin Yes TAKE 1 Univ ers 40 mg 9-18 TABLET BY ity of tablet 00:00: MOUTH EVERY Medical EVENING Branch simvastatin Yes TAKE 1 Univ ers 40 mg 9-18 TABLET BY ity of tablet 00:00: MOUTH EVERY Medical EVENING Branch topiramate No See Memoria 25 mg oral 9-17 Instructio l tablet 14:01: ns, # 180 [place] n 58 tab, Refill(s) 2, TAKE 2 TABLETS BY MOUTH AT BEDTIME, 03/18/18 8:31:56 CDT, [id number] topiramate No See Memoria 25 mg oral 9-17 Instructio l tablet 14:01: ns, # 180 [place] n 58 tab, Refill(s) 2, TAKE 2 TABLETS BY MOUTH AT BEDTIME, 03/18/18 8:31:56 CDT, Pharmacy: [facility] #[id number] aspirin 81 Yes 81 mg = 1 Me moria mg tablet, 3-13 tab, CHEW, l chewable 14:44: Daily, 0 Liss nn 00 Refill(s) [facility] Yes 1 tab, PO, Kaden zehra Silver oral 3-13 Daily, 0 l tablet 14:44: Refill(s) [place] n 00 oxybutynin Yes 5 mg = 1 Mem oria 5 mg oral 3-13 tab, PO, l tablet 14:44: TID, 0 [place] 00 Refill(s) aspirin 81 Yes 81 mg = 1 Me moria mg tablet, 3-13 tab, CHEW, l chewable 14:44: Daily, 0 Liss nn 00 Refill(s) [facility] Yes 1 tab, PO, Kaden zehra Silver oral 3-13 Daily, 0 l tablet 14:44: Refill(s) [place] n 00 oxybutynin Yes 5 mg = 1 Mem oria 5 mg oral 3-13 tab, PO, l tablet 14:44: TID, 0 [place] 00 Refill(s) Immunizations Ordered Filled Date Status Comments Source Immunization Name Immunization Name SARS-COV-2 COVID-19 2020-08-17 [facility]00 [facility] [id number] 2020-08-17 Completed Memor ial [place] [id number] 00:00:00 ER SARS-COV-2 COVID-19 2020-07-27 Completed Unive rsity of PFIZER VACCINE 00:00:00 [facility] [id number] 2020-07-27 Completed Memor ial [place] [id number] 00:00:00 ER [id number] Unknown Completed Memor ial [place] [id number] ER [id number] Unknown Completed Memor ial [place] [id number] ER Vital Signs Vital Name Observation Time Observation Value Comments Source Systolic blood 2019-10-12 16:52:00 107 mm[Hg] Univer sity of pressure [facility] Diastolic blood 2019-10-12 16:52:00 77 mm[Hg] Unive rsity of pressure [facility] Heart rate 2019-10-12 16:52:00 56 /min [facility] Body temperature 2019-10-12 16:52:00 36.67 [facility] Respiratory rate 2019-10-12 16:52:00 17 /min [facility] Body height 2019-10-12 16:52:00 162.6 cm [facility] Body weight 2019-10-12 16:52:00 75.411 kg [facility] BMI 2019-10-12 16:52:00 28.54 kg/m2 [facility] Systolic (mm Hg) 2023-03-05 14:34:00 Kaden rial [place] Diastolic (mm Hg) 2023-03-05 14:34:00 Mem orial [place] Heart Rate 2023-03-05 14:34:00 [facility] [place] Height 2023-03-05 14:34:00 5 [ft_i] [facility] [place] Weight 2023-03-05 14:34:00 [facility] [place] BMI Calculated 2023-03-05 14:34:00 Memori al [place] Systolic (mm Hg) 2022-09-03 14:52:00 Kaden rial [place] Diastolic (mm Hg) 2022-09-03 14:52:00 Mem orial [place] Heart Rate 2022-09-03 14:52:00 [facility] [place] Height 2022-09-03 14:52:00 5 [ft_i] [facility] [place] Weight 2022-09-03 14:52:00 [facility] [place] BMI Calculated 2022-09-03 14:52:00 Memori al [place] Systolic (mm Hg) 2022-03-05 16:01:00 Kaden rial [place] Diastolic (mm Hg) 2022-03-05 16:01:00 Mem orial [place] Heart Rate 2022-03-05 16:01:00 [facility] [place] Height 2022-03-05 16:01:00 5 [ft_i] [facility] [place] Weight 2022-03-05 16:01:00 [facility] [place] BMI Calculated 2022-03-05 16:01:00 Memori al [place] Systolic (mm Hg) 2021-08-31 15:38:00 Kaden rial [place] Diastolic (mm Hg) 2021-08-31 15:38:00 Mem orial [place] Heart Rate 2021-08-31 15:38:00 [facility] [place] Respitory Rate 2021-08-31 15:38:00 Memori al [place] Height 2021-08-31 15:38:00 154.94 cm [facility] [place] Weight 2021-08-31 15:38:00 [facility] [place] BMI Calculated 2021-08-31 15:38:00 Memori al [place] Systolic (mm Hg) 2021-03-02 15:35:00 Kaden rial [place] Diastolic (mm Hg) 2021-03-02 15:35:00 Mem orial [place] Heart Rate 2021-03-02 15:35:00 [facility] [place] Respitory Rate 2021-03-02 15:35:00 Memori al [place] Systolic (mm Hg) 2020-11-03 15:39:00 Kaden rial [place] Diastolic (mm Hg) 2020-11-03 15:39:00 Mem orial [place] Heart Rate 2020-11-03 15:39:00 [facility] [place] Respitory Rate 2020-11-03 15:39:00 Memori al [place] Height 2020-11-03 15:39:00 154.94 cm [facility] [place] Weight 2020-11-03 15:39:00 [facility] [place] BMI Calculated 2020-11-03 15:39:00 Memori al [place] Systolic (mm Hg) 2020-07-07 22:04:00 Kaden drummond [place] Diastolic (mm Hg) 2020-07-07 22:04:00 Mem orial [place] Heart Rate 2020-07-07 22:04:00 [facility] [place] Respitory Rate 2020-07-07 22:04:00 Memori al [place] Height 2020-07-07 22:04:00 157.48 cm [facility] [place] Weight 2020-07-07 22:04:00 [facility] [place] BMI Calculated 2020-07-07 22:04:00 Naif al [place] Procedures Procedure Date / Time Performing Clinician Source Performed AUTHORIZATION FOR 2020-06-08 06:01:00 Doctor Unassigned, No [facility] Name Medical Branch ASSIGNMENT OF BENEFITS 2019-10-12 16:09:31 Doctor Unassigned, No [facility] Name Medical Branch Encounters Start End Encounter Admission Attending Care Care Encounter Source Date/Time Date/Time Type Type Clinicians Facility Department ID 2023-09-03 2023-09-03 Outpatient MHIE MHIE [id number] Memoria 10:00:00 10:00:00 10 dhara [place] 2023-03-05 2023-03-06 Outpatient MHIE MNA [id number] Memoria 15:00:00 04:59:59 Neurology 09 l Marjorie Gregg 2023-03-05 2023-03-05 Outpatient RICK Tim MISCHER [id number] 10:00:00 23:59:59 Jeevan Julisa Prasad 2023-03-05 2023-03-05 Outpatient MHIE MHIE [id number] Memoria 10:00:00 10:00:00 09 dhara Cristino 2023-03-05 2023-03-05 Outpatient MHIE MHIE [id number] Memoria 10:00:00 10:00:00 09 l [place] 2022-09-03 2022-09-04 Outpatient MHIE MNA [id number] Memoria 14:45:00 04:59:59 Neurology 08 l Marjorie Gregg 2022-09-03 2022-09-04 Outpatient MHIE MNA [id number] Memoria 14:45:00 04:59:59 Neurology 08 l Marjorie Gregg 2022-09-03 2022-09-03 [id number] 09:45:00 23:59:59 Jeevan 08 Osmar 2022-09-03 2022-09-03 Outpatient MHIE IE [id number] Memoria 09:45:00 09:45:00 08 dhara Gregg 2022-03-05 2022-03-06 Outpatient nullFlavo MNA [id number] Memoria 15:45:00 04:59:59 r Neurology 07 l Marjorie Gregg 2022-03-05 2022-03-06 Outpatient nullFlavo MNA [id number] Memoria 15:45:00 04:59:59 r Neurology 07 l Marjorie Gregg 2022-03-05 2022-03-05 [id number] 10:45:00 23:59:59 Jeevan 07 Osmar 2022-03-05 2022-03-05 Outpatient MHIE MHIE [id number] Memoria 10:45:00 10:45:00 07 dhara Gregg 2021-08-31 2021-09-01 Outpatient nullFlavo MNA [id number] Memoria 15:30:00 04:59:59 r Neurology 06 l Marjorie Gregg 2021-08-31 2021-09-01 Outpatient nullFlavo MNA [id number] Memoria 15:30:00 04:59:59 r Neurology 06 l Marjorie Gregg 2021-08-31 2021-08-31 [id number] 10:30:00 23:59:59 Jeevan 06 Osmar 2021-08-31 2021-08-31 Outpatient MHIE MHIE [id number] Memoria 10:30:00 10:30:00 06 dhara Gregg 2021-03-02 2021-03-03 Outpatient nullFlavo MNA [id number] Memoria 15:30:00 04:59:59 r Neurology 05 l Marjorie Gregg 2021-03-02 2021-03-03 Outpatient nullFlavo MNA [id number] Memoria 15:30:00 04:59:59 r Neurology 05 dhara Pioneer Cristino 2021-03-02 2021-03-02 [id number] 10:30:00 23:59:59 Jeevan 05 Osmar 2021-03-02 2021-03-02 Outpatient MHIE MHIE [id number] Memoria 10:30:00 10:30:00 05 dhara Cristino 2020-11-03 2020-11-04 Outpatient nullFlavo MNA [id number] Memoria 15:30:00 04:59:59 r Neurology 04 dhara Pioneer Cristino 2020-11-03 2020-11-04 Outpatient nullFlavo MNA [id number] Memoria 15:30:00 04:59:59 r Neurology 04 dhara Marjorie Gregg 2020-11-03 2020-11-03 [id number] 10:30:00 23:59:59 Jeevan Timi Prasad 2020-11-03 2020-11-03 Outpatient MHIE MHIE [id number] Memoria 10:30:00 10:30:00 04 dhara Cristino 2020-10-29 2020-10-29 [facility] [id number] Univers 00:00:00 00:00:00 Leandro Odonnell [id number] [facility] [id number] Sarkis burciaga [facility] [id number] [address] 2020-08-17 2020-08-17 Outpatient Jasiel LR [facility] [id number] Univers 14:40:00 14:40:00 [facility] 2020-07-27 2020-07-27 Outpatient Jasiel LR [facility] [id number] Univers 14:50:00 14:50:00 [facility] 2020-07-07 2020-07-08 Outpatient nullFlavo MNA [id number] Memoria 22:00:00 05:59:59 r Neurology 03 l Marjorie Gregg 2020-07-07 2020-07-08 Outpatient nullFlavo MNA [id number] [facility] 22:00:00 05:59:59 r Neurology 03 l Marjorie Gregg 2020-07-07 2020-07-07 Outpatient KEVIN TimMISCHER MISCHER [id number] 16:00:00 23:59:59 Jeevan Jp Prasad 2020-07-07 2020-07-07 Outpatient MH[facility] IE [id number] Memoria 16:00:00 16:00:00 03 dhara Gregg 2020-06-09 2020-06-09 Telephone Roderick [facility] [id number] Univers 00:00:00 00:00:00 Leandro Odonnell [id number] [facility] [place] [id number] [phone] [place] dicpr nal 092 [facility] 2020-06-08 2020-06-08 Orders Doctor CHELI 1.2.840.114 [id number] Univers 00:00:00 00:00:00 Only Unassigned, CHARMAINE [id number] ity of [place] [facility] [id number] Krystian as [phone] [address] 2020-05-03 2020-05-03 Refill Roderick [facility] 1.2.840.114 [id number] Univers 00:00:00 00:00:00 Leandor Odonnell [id number] ity of [id number] [phone] Ne dical nal 092 [facility] 2019-10-13 2019-10-13 Thread Winder 2, Adc Lab [facility] 1.2.840.114 [id number] Univers 11:06:53 11:21:53 Visit Leandro Vaughn 350.1.13 .10 ity [id number] [phone] Ne dical nal 353 [facility] 2019-10-13 2019-10-13 Outpatient R LEANDRO VAUGHN [facility] [id number] Univers 10:30:00 10:30:[address] [facility] 2019-10-12 2019-10-12 Office Roderick [facility] 1.2.840.114 [id number] Univers 11:09:36 11:59:41 Visit Leandro Odonnell [id number] it[id number] [phone] [address] 2019-10-12 2019-10-12 Outpatient R RODERICK LEANDRO [facility] [id number] Univers 11:00:00 11:00:[address] [facility] 2019-10-12 2019-10-12 Orders Doctor CHELI 1.2.840.114 [id number] Univers 00:00:00 00:00:00 Only Unassigned, CHARMAINE [id number] ity of [place] [facility] [id number] Krystian as [phone] [address] 2019-08-19 2019-08-19 Refill Roderick [facility] 1.2.840.114 [id number] Univers 00:00:00 00:00:00 Leandro Odonnell [id number] ity [id number] [phone] [address] 2019-08-19 2019-08-19 Refill Roderick [facility] 1.2.840.114 [id number] Univers 00:00:00 00:00:00 Leandro Odonnell [id number] ity of [id number] [phone] [address] 2019-08-09 2019-08-09 Refill Roderick [facility] 1.2.840.114 [id number] Univers 00:00:00 00:00:00 Leandro Odonnell [id number] ity [id number] [phone] [address] 2019-07-31 2019-07-31 [facility] 1.2.840.114 [id number] Univers 00:00:00 00:00:00 Leandro Odonnell [id number] [facility] Lou [id number] Sarkis Zhang [phone] Ne dical [facility]2 [facility] 2018-11-03 2018-11-05 Outside nullFlavo MNA [id number] Memoria 13:16:15 04:59:59 Medical r Neurology 03 l Records Marjorie Gregg 2018-11-03 2018-11-05 Outside nullFlavo MNA [id number] Memoria 13:16:15 04:59:59 Medical r Neurology 03 l Records Marjorie Gregg 2018-11-03 2018-11-04 Outpatient MHMISCHER MHMISCHER [id number] 08:16:15 23:59:59 03 2018-05-05 2018-05-05 Ambulatory nullFlavo MNA [id number] Memoria 17:30:00 17:30:00 Pre-Reg r Neurology 02 l Marjorie Gregg 2018-05-05 2018-05-05 Ambulatory nullFlavo MNA [id number] Memoria 17:30:00 17:30:00 Pre-Reg r Neurology 02 dhara Gregg 2018-05-05 2018-05-05 Outpatient MHIE MHIE [id number] Memoria 11:30:00 11:30:00 Jose G Gregg 2018-05-05 2018-05-05 Outpatient Meeta MHMISCHER MHMISCHER [id number] 11:30:00 11:30:00 Jeevan Jose G Prasad 2018-04-02 2018-04-04 Phone nullFlavo MNA [id number] Memoria 16:32:00 05:59:59 Message r Neurology 01 dhara Gregg 2018-04-02 2018-04-04 Phone nullFlavo MNA [id number] Memoria 16:32:00 05:59:59 Message r Neurology 01 dhara Gregg 2018-04-02 2018-04-03 Outpatient MHMISCHER MHMISCHER [id number] 10:32:00 23:59:59 2018-03-17 2018-03-19 Phone nullFlavo MNA [id number] Memoria 23:20:00 04:59:59 Message r Neurology 00 l Marjorie Gregg 2018-03-17 2018-03-19 Phone nullFlavo MNA [id number] Memoria 23:20:00 04:59:59 Message r Neurology 00 l Marjorie Gregg 2018-03-17 2018-03-18 Outpatient MHMISCHER MHMISCHER [id number] 18:20:00 23:59:59 00 2017-12-09 2017-12-09 Outpatient MHIE MHIE [id number] Memoria 11:45:00 11:45:00 01 dhara CarmonaCristino 2017-12-09 2017-12-09 Outpatient MHIE MHIE [id number] Memoria 11:45:00 11:45:00 01 dhara Gregg 2017-08-07 2017-08-07 Outpatient MHIE MHIE [id number] Memoria 09:30:00 09:30:00 00 dhara Gregg 2017-08-07 2017-08-07 Outpatient MHIE MHIE [id number] Memoria 09:30:00 09:30:00 00 dhara Gregg Results This patient has no known results.
[2023-03-20 20:34] LABS: Absolute Lymphocytes (CBC) 1.5 K/uL (0.7-4.9); Hematocrit 42.2 % (36.0-45.0); Lymphocytes % 9.5 % (15.3-44.8); MCV 97.3 fL (80-100); MPV 8.2 fL (7.6-11.3); Platelets 207 thou/uL (152-406); RBC Red Blood Cell Count 4.34 M/uL (3.86-4.86)
[2023-03-20 20:39] LABS: Protime INR 0.95
--- NOTE | 2023-03-20 20:51 | RAD REPORT ---
EXAM DESCRIPTION: RAD - Femur Right - 03/20/2023 8:16 pm CLINICAL HISTORY: PAIN COMPARISON: No comparisons TECHNIQUE: Right femur, 2 views. FINDINGS: Oblique distal femoral displaced fracture, with 2.4 cm posterior offset of the distal frag ment, and medial apex angulation on the AP view, measuring approximately 19 degrees. Total knee arthr oplasty hardware in satisfactory alignment. There is no dislocation or periosteal reaction noted. No acute or suspicious bony finding. IMPRESSION: Oblique distal femoral displaced fracture as above.
[2023-03-20 20:55] LABS: Albumin 3.2 g/dL (3.4-5.0); Bilirubin Direct 0.2 mg/dL (0-0.2); Bilirubin Indirect, Calculated 6.6 mg/dL (0.2-0.8); Bilirubin Total 6.8 mg/dL (0.2-1.0); Magnesium 2.3 mg/dL (1.6-2.4); Potassium 3.6 mEq/L (3.5-5.1); Protein, Total 6.7 g/dL (6.4-8.2); Troponin High Sensitivity 9.6 pg/mL (<58.9)
[2023-03-20 20:59] LABS: Blood Morphology Comment NOT SEEN (NOT SEEN); Platelet Estimate ADEQ; White Blood Cell Scan OK (OK)
--- NOTE | 2023-03-20 21:00 | RAD REPORT ---
EXAM DESCRIPTION: RAD - Tib Fib Right - 03/20/2023 8:16 pm CLINICAL HISTORY: PAIN COMPARISON: No comparisons TECHNIQUE: Right tibia and fibula, 2 views. FINDINGS: No tibia/fibula fracture is identified. Displaced oblique distal femoral fracture, evaluat ed separately on dedicated right femoral radiographs. There is no dislocation or periosteal reaction noted. No acute or suspicious bony finding. No foreign body or other soft tissue abnormality. IMPRESSION: Negative right tibia & fibula examination.
[2023-03-20] MEDS ORDERED: NA CHLORIDE 0.9% 1,000 ML ONE (21:05)
--- NOTE | 2023-03-20 21:41 | ER ---
Nurse's Notes [facility] Name: Neeta Olson Age: 82 yrs Sex: Female : 1940 Arrival Date: 03/20/2023 Time: 19:12 Bed 12 Private MD: Diagnosis: Oblique distal femur fracture;Fall on same level from slipping, tripping and stumbling without subsequent striking against object Presentation: 03/20 19:17 Chief complaint: EMS states: She fell around noon and her daughter found her on the vc1 floor around 7. She's complaining of right knee pain. She walks with a walker and has a shuffling gate. Coronavirus screen: Vaccine status: Patient reports receiving the 1st dose of the Covid vaccine. one dose; [employer] Client denies travel out of the [place] in the last 14 days. At this time, the client does not indicate any symptoms associated with coronavirus-19. Ebola Screen: Patient negative for fever greater than or equal to 101.5 degrees Fahrenheit, and additional compatible Ebola Virus Disease symptoms Patient denies exposure to infectious person. Patient denies travel to an Ebola-affected area in the 21 days before illness onset. No symptoms or risks identified at this time. Initial Sepsis Screen: Does the patient have a suspected source of infection? No. Patient's initial sepsis screen is negative. Risk Assessment: Do you want to hurt yourself or someone else? Patient reports no desire to harm self or others. Onset of symptoms was March 20, 2023 at 12:00. Care prior to arrival: None. Activity prior to arrival: None. 19:17 Method Of Arrival: EMS: [facility] vc1 19:17 Acuity: FLAVIA 3 vc1 19:19 Initial Sepsis Screen: Does the patient meet any 2 criteria? No. Patient's initial vc1 sepsis screen is negative. Triage Assessment: 19:21 General: Appears in no apparent distress. uncomfortable, Behavior is calm, cooperative, vc1 appropriate for age. Pain: Complains of pain in right leg Pain does not radiate. Pain currently is 5 out of 10 on a pain scale. at worst was 7 out of 10 on a pain scale. Quality of pain is described as sharp, Aggravated by increased activity, repositioning. EENT: No deficits noted. No signs and/or symptoms were reported regarding the EENT system. Neuro: Level of Consciousness is awake, alert, obeys commands, Oriented to person, place, time, situation, Appropriate for age. Cardiovascular: No deficits noted. Respiratory: Airway is patent Respiratory effort is even, unlabored, Respiratory pattern is regular, symmetrical. GI: No deficits noted. No signs and/or symptoms were reported involving the gastrointestinal system. : No deficits noted. No signs and/or symptoms were reported regarding the genitourinary system. Musculoskeletal: Range of motion: limited in right knee. 19:53 Derm: Bruising that is dark purple, on right wrist. vc1 Historical: - Allergies: 19:19 Sulfa (Sulfonamide Antibiotics); vc1 - PMHx: 19:19 Glaucoma; lymphedema; tremors; vc1 - PSHx: 19:19 [place] Knee replacement; vc1 - Immunization history:: Client reports receiving the 1st dose of the Covid vaccine. - Social history:: Smoking status: Patient denies any tobacco usage or history of. Screenin:20 [facility] ED Fall Risk Assessment (Adult) History of falling in the last 3 months, vc1 including since admission Yes- physiologic fall (2 pts) Confusion or Disorientation No (0 pts) Intoxicated or Sedated No (0 pts) Impaired Gait Yes (1 pt) Mobility Assist Device Used Yes (1 pt) Altered Elimination No (0 pt) Score/Fall Risk Level 3 or more points = High Risk Oriented to surroundings, Maintained a safe environment, Educated pt \T\ family on fall prevention, incl call for assistance when getting out of bed, Hourly rounding (assess needs \T\ fall precautionary measures) done. Abuse screen: Denies threats or abuse. Nutritional screening: No deficits noted. Tuberculosis screening: No symptoms or risk factors identified. Vital Signs: 19:17 Resp 18; Temp 98.3; Weight 72.57 kg; Height 5 ft. 2 in. ; Pain 5/10; vc1 19:35 BP 127 / 95; Pulse 83; Resp 18; Pulse Ox 99% ; vc1 20:33 BP 140 / 92 Supine; Pulse 82; vc1 20:35 BP 146 / 126 Sitting; Pulse 82; vc1 20:37 BP 108 / 95; Pulse 88; vc1 22:03 BP 123 / 107; Pulse 91; Resp 15; Pulse Ox 100% ; vc1 19:17 Body Mass Index 29.26 (72.57 kg, 157.48 cm) vc1 19:17 Pain Scale: Adult vc1 ED Course: 19:16 Patient arrived in ED. kl 19:16 Airam Goss, KAREEM is Primary Nurse. vc1 19:18 [facility] Mart [facility] kb 19:18 Gibson Wall MD is Attending Physician. kb 19:19 Triage completed. vc1 19:20 Arm band placed on right wrist. vc1 19:21 Patient has correct armband on for positive identification. Bed in low position. Call vc1 light in reach. Side rails up X2. Adult w/ patient. Provided Education on: Fall risk. Pulse ox on. NIBP on. 20:15 Missed attempt(s): 22 gauge Bleeding controlled, band aid applied, catheter tip intact. vc1 20:18 Femur Right XRAY In Process Unspecified. EDMS 20:18 Tib Fib Right XRAY In Process Unspecified. EDMS 20:20 Inserted saline lock: 22 gauge in right wrist, using aseptic technique. vc1 21:10 initiated transfer to [facility] call center. Spoke with Mae. jr12 22:29 No provider procedures requiring assistance completed. Patient transferred, IV remains vc1 in place. Administered Medications: 20:51 Drug: NS 0.9% IV 1000 ml IV at 1000 ml once Route: IV; Rate: 1000 ml; Site: right wrist;vc1 21:51 Follow up: IV Status: Completed infusion; IV Intake: 1000ml vc1 21:51 Drug: Ondansetron IVP 4 mg IVP once; over 2 minutes Route: IVP; Site: right wrist; vc1 22:30 Follow up: Response: No adverse reaction; Marked relief of symptoms vc1 21:52 Drug: fentaNYL (PF) IVP 25 mcg IVP once Route: IVP; Site: right wrist; vc1 22:30 Follow up: Response: No adverse reaction; Marked relief of symptoms vc1 Medication: 19:20 VIS not applicable for this client. vc1 Intake: 21:51 IV: 1000ml; Total: 1000ml. vc1 Outcome: 21:40 ER care complete, transfer ordered by . kb 22:30 Transferred by ground EMS to [facility], Transfer form completed. X-rays sent vc1 w/ patient. 22:30 Condition: good 22:30 Instructed on the need for transfer, 22:31 Patient left the ED. vc1 Signatures: Dispatcher [employer] EDRadha Tate, LINDSEY CARLSON-Yamileth Little RN RN kl [place], Vanessa, RN RN vc1 Faye Welch jr12 Corrections: (The following items were deleted from the chart) 19:48 19:17 Acuity: FLAVIA 4 vc1 vc1 19:54 19:21 Derm: No deficits noted. No signs and/or symptoms reported regarding the vc1 dermatologic system. vc1
--- NOTE | 2023-03-20 21:41 | EDPHYS ---
Physician Documentation [facility] Name: Neeta Olson Age: 82 yrs Sex: Female : 1940 Arrival Date: 03/20/2023 Time: 19:12 Bed 12 Private MD: ED Physician Gibson Wall HPI: 03/20 21:14 This 82 yrs old Female presents to ER via EMS with complaints of Leg Pain. kb 21:14 Details of fall: The patient fell from an upright position, while walking. Onset: The kb symptoms/episode began/occurred today. Associated injuries: The patient sustained right leg, decreased range of motion, painful injury. Severity of symptoms: At their worst the symptoms were moderate, in the emergency department the symptoms are unchanged. The patient has not experienced similar symptoms in the past. The patient has not recently seen a physician. Patient is a 82-year-old female who had a fall around noon today and was on the ground until found by daughter around 1900 because she could not get up. Patient denies LOC. EMS reports patient did have a syncopal episode that was brief and they lifted her from supine position.. Historical: - Allergies: 19:19 Sulfa (Sulfonamide Antibiotics); vc1 - PMHx: 19:19 Glaucoma; lymphedema; tremors; vc1 - PSHx: 19:19 [place] Knee replacement; vc1 - Immunization history:: Client reports receiving the 1st dose of the Covid vaccine. - Social history:: Smoking status: Patient denies any tobacco usage or history of. ROS: 21:12 Constitutional: Negative for fever, chills, and weight loss, kb 21:12 MS/extremity: Positive for pain, of the right leg, 21:12 All other systems are negative, Exam: 21:12 Constitutional: This is a well developed, well nourished patient who is awake, alert, kb and in no acute distress. Head/Face: Normocephalic, atraumatic. Eyes: Pupils equal round and reactive to light, extra-ocular motions intact. Lids and lashes normal. Conjunctiva and sclera are non-icteric and not injected. Cornea within normal limits. Periorbital areas with no swelling, redness, or edema. ENT: Moist Mucous membranes Cardiovascular: Regular rate Respiratory: Respirations even and unlabored. No increased work of breathing. Talking in full sentences Abdomen/GI: Soft, non-tender. No distention Skin: Warm, dry with normal turgor. Normal color. Neuro: Awake and alert, GCS 15, oriented to person, place, time, and situation. Moves all extremities. Normal gait. 21:12 Musculoskeletal/extremity: Extremities: grossly normal except: noted in the right leg: decreased ROM, pain, tenderness, ROM: limited active range of motion, limited active range of motion due to pain, Circulation is intact in all extremities. Sensation intact. Weight bearing: is unable to bear weight, 22:06 ECG was reviewed by the Attending Physician. kb Vital Signs: 19:17 Resp 18; Temp 98.3; Weight 72.57 kg; Height 5 ft. 2 in. ; Pain 5/10; vc1 19:35 BP 127 / 95; Pulse 83; Resp 18; Pulse Ox 99% ; vc1 20:33 BP 140 / 92 Supine; Pulse 82; vc1 20:35 BP 146 / 126 Sitting; Pulse 82; vc1 20:37 BP 108 / 95; Pulse 88; vc1 22:03 BP 123 / 107; Pulse 91; Resp 15; Pulse Ox 100% ; vc1 19:17 Body Mass Index 29.26 (72.57 kg, 157.48 cm) vc1 19:17 Pain Scale: Adult vc1 MDM: 19:18 Patient medically screened. kb 21:13 Differential diagnosis: dislocation, closed fracture, contusion. Data reviewed: vital kb signs, nurses notes. Consideration of Admission/Observation Escalation of care including admission/observation considered. pt will be transferred to [place] as requested by daughter. Management of patient was discussed with the following: Instructional Systems Designer: Dr Bradley recommends transfer. Historians other than the Patient: EMS: [facility]. Counseling: I had a detailed discussion with the patient and/or guardian regarding the historical points, exam findings, and any diagnostic results supporting the discharge/admit diagnosis, lab results, radiology results, the need to transfer to another facility, for higher level of care. 21:39 Management of patient was discussed with the following: Dr Zepeda accepts pt to [facility] without conference. 03/20 19:25 Order name: Basic Metabolic Panel; Complete Time: 20:55 kb 03/20 19:25 Order name: CBC with Diff; Complete Time: 21:00 kb 03/20 19:25 Order name: Hepatic Function; Complete Time: 20:55 kb 03/20 19:25 Order name: Magnesium; Complete Time: 20:55 kb 03/20 19:25 Order name: Protime (+inr); Complete Time: 20:52 kb 03/20 19:25 Order name: Ptt, Activated; Complete Time: 20:52 kb 03/20 19:25 Order name: Troponin High Sensitivity; Complete Time: 20:55 kb 03/20 19:25 Order name: CPK; Complete Time: 20:55 kb 03/20 20:40 Order name: CBC Smear Scan; Complete Time: 21:00 EDMS 03/20 19:25 Order name: Femur Right XRAY; Complete Time: 20:52 kb 03/20 19:25 Order name: Tib Fib Right XRAY; Complete Time: 21:01 kb 03/20 19:25 Order name: EKG; Complete Time: 19:25 kb 03/20 19:25 Order name: Cardiac monitoring; Complete Time: 19:35 kb 03/20 19:25 Order name: EKG - Nurse/Tech; Complete Time: 19:47 kb 03/20 19:25 Order name: IV Saline Lock; Complete Time: 20:23 kb 03/20 19:25 Order name: Labs collected and sent; Complete Time: 20:23 kb 03/20 19:25 Order name: NPO; Complete Time: 19:47 kb 03/20 19:25 Order name: O2 Per Protocol; Complete Time: 19:47 kb 03/20 19:25 Order name: O2 Sat Monitoring; Complete Time: 19:47 kb 03/20 19:25 Order name: Orthostatics; Complete Time: 20:48 kb 03/20 21:28 Order name: Knee Immobilizer; Complete Time: 22:05 kb EC:06 Rate is 77 beats/min. Rhythm is regular. QRS [place] is Normal. HI interval is normal at kb 130 msec. QRS interval is normal at 74 msec. QT interval is normal at 443 msec. Administered Medications: 20:51 Drug: NS 0.9% IV 1000 ml IV at 1000 ml once Route: IV; Rate: 1000 ml; Site: right wrist;vc1 21:51 Follow up: IV Status: Completed infusion; IV Intake: 1000ml vc1 21:51 Drug: Ondansetron IVP 4 mg IVP once; over 2 minutes Route: IVP; Site: right wrist; vc1 22:30 Follow up: Response: No adverse reaction; Marked relief of symptoms vc1 21:52 Drug: fentaNYL (PF) IVP 25 mcg IVP once Route: IVP; Site: right wrist; vc1 22:30 Follow up: Response: No adverse reaction; Marked relief of symptoms vc1 Disposition Summary: 03/20/23 21:40 Transfer Ordered Notes: Transfer Location: [facility] Reason: Higher level of care kb Condition: Stable kb Problem: new kb Symptoms: are unchanged kb Accepting Physician: Dr Zepeda(03/20/23 22:31) vc1 Diagnosis - Oblique distal femur fracture kb - Fall on same level from slipping, tripping and stumbling without subsequent kb striking against object Forms: - Medication Reconciliation Form kb - SBAR form kb Signatures: Dispatcher [employer] EDRadha Tate, LINDSEY CARLSON-Airam Richmond RN RN vc1 Corrections: (The following items were deleted from the chart) 21:40 Dr Zepeda kb vc1
[2023-03-20] MEDS ORDERED: FENTANYL CITR 100 MCG/2 ML ONE (21:59)
[2023-03-20] MEDS ORDERED: ONDANSETRON 4 MG/2 ML VIAL ONE (22:00)
[2023-03-20 22:50] VITALS: TEMP 98.3
[2023-03-20 23:04] VITALS: BP 123/107; O2SAT 100
== END 2023-03-20 22:31 | disposition short-term general hospital (02) ==
LOC: ER 19:12
DX: S72.401A Unspecified fracture of lower end of right femur, initial encounter for closed fracture (principal); W01.0XXA Fall on same level from slipping, tripping and stumbling without subsequent striking against object, initial encounter; Z88.2 Allergy status to sulfonamides; Z96.653 Presence of artificial knee joint, bilateral
CPT/HCPCS: 96361; 93005; 85025; 80048; 36415; 83735; 82550; 85610; 80076; 85730; 84484; 73552; 73590; 96375; 96374; 99285; J3010; J2405; J7030

== ENCOUNTER 2024-12-29 11:40 | Emergency (ER) | payer OTHER ==
--- OUTSIDE RECORDS SUMMARY | 2024-12-29 11:46 | XMS REPORT | Continuity of Care Document ---
Author Name Unknown Address [address] [facility] [address]. [address] [place] [address] [facility] Address [address] [facility] [place]. 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 Name Role Phone No , Pcp Primary Care Physician UnavailMEGAN Collins Attending Clinician Unavailgreta Wilson MD, Cammie Rodas Attending Clinician [phone] Inez Loya MD Attending Clinician [phone] Sherin Castillo MD Attending Clinicia n SHERIN CASTILLO Attending Clinician [facility], Provider Not In Attending Clinician UnaEda Canada MD Attending Clinician [phone] EDA PERKINS Attending Clinician Unavail Billy Hill MD Attending Clinician [phone] Tez Samuel Attending Clinician [phone] RIAZ MCKENZIE Attending Clinician UnavailFRANCO Montiel Attending Clinician Unavailable Leandro Vaughn MD Attending Clinician [phone] TIFFANIE LR Attending Clinician Unavailable Doctor Unassigned, [place] Attending Clinician U ree 2, [facility] Attending Clinician Unavailable LEANDRO VAUGHN Attending Clinician Unavail able LEANDRO VAUGHN Attending Clinician Unavail able Dhruv LOUISE, Sherin Pichardo Admitting Clinicia n SHERIN CASTILLO Admitting Clinician U FRANCO Ash Admitting Clinician Unavailable Payers Payer Name Policy Type Policy Number Effective Date Expirati on Date Source [employer] MEDICARE PPO [id number] 00:00:00 [employer] MEDICARE ADVANTAGE Medicare [id number] 2023 00:00:00 Problems Condition Name Condition Details Condition Category Status Onset Date Resolution Date Last Treatment Date Treating Clinician Comments Source Closed fracture of sacrum, unspecifie d portion of sacrum, initial encounter ([facility]) Closed fracture of sacrum, unspecifie d portion of sacrum, initial encounter ([facility]) Disease Active 12-13 00:00: 00 Fatuma Gregg Epic Bilateral sacral insufficie ncy fracture, initial encounter Bilateral sacral insufficie ncy fracture, initial encounter Disease Active 12-11 00:00: 00 Memoria dhara Gregg Epic T1 vertebral fracture ([facility]) T1 vertebral fracture ([facility]) Disease Active 12-11 00:00: 00 Memoria dhara Gregg Epic Hypokalemi a Hypokalemi a Disease Active 12-11 00:00: 00 Fatuma Gregg Epic Hammertoe of right foot Hammertoe of right foot Disease Active 12-02 00:00: 00 Memoria dhara Gregg Epic Peripheral vascular disease Peripheral vascular disease Disease Active 12-02 00:00: 00 Oliveroria dhara Glass Hyponatrem ia Hyponatrem ia Disease Active 12-02 00:00: 00 Fatuma Glass 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, right femur, subsequent encounter for fracture with routine healing 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, right femur, subsequent encounter for fracture with routine healing Disease Active 2022-05 1- 00:00: 00 Fatuma Glass Difficulty in walking, not elsewhere classified Difficulty in walking, not elsewhere classified Disease Active 2022-05 00:00: 00 Fatuma Gregg Epic Fall on same level from slipping, tripping and stumbling with subsequent striking against other object, subsequent encounter Fall on same level from slipping, tripping and stumbling with subsequent striking against other object, subsequent encounter Disease Active 2022-05 00:00: 00 Fatuma Gregg Epic Hypertensi on Hypertensi on Disease Active 2022-05 00:00: 00 Fatuma Gregg Epic Hypo-osmol ality and hyponatrem ia Hypo-osmol ality and hyponatrem ia Disease Active 2022-05 00:00: 00 Fatuma Gregg Epic Lymphedema Lymphedema Disease Active 2022-05 00:00: 00 Fatuma Glass Muscle weakness (generaliz ed) Muscle weakness (generaliz ed) Disease Active 2022-05 00:00: 00 Fatuma Glass Other seizures (CMS/HCC) Other seizures (CMS/HCC) Disease Active 2022-05 00:00: 00 Fatuma Gregg Epic Overactive bladder Overactive bladder Disease Active 2022-05 00:00: 00 Fatuma Gregg Epic Spondylosi s, unspecifie d Spondylosi s, unspecifie d Disease Active 2022-05 00:00: 00 Fatuma Glass Tremor, unspecifie d Tremor, unspecifie d Disease Active 2022-05 00:00: 00 Fatuma Glass Unspecifie d glaucoma Unspecifie d glaucoma Disease Active 2022-05 00:00: 00 Fatuma Gregg Epic Ventricula r premature depolariza tion Ventricula r premature depolariza tion Disease Active 2022-05 00:00: 00 Fatuma Glass 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, right femur, subsequent encounter for fracture with routine healing 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, right femur, subsequent encounter for fracture with routine healing Disease Active 2022-05 00:00: 00 Fatuma Glass Essential tremor Essential tremor Disease Active 2014-05 00:00: 00 Fatuma Glass Other hyperlipid emia Other hyperlipid emia Disease Active 2014-05 00:00: 00 Fatuma Gregg Epic 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, 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, cervical region Disease Active 2014-05 00:00: 00 Fatuma Glass Fall on same level from slipping, tripping or stumbling Fall on same level from slipping, tripping or stumbling Disease Resolve d 2022-05 00:00: 00 2024-11-25 00:00:00 2024-11-25 10:11:37 Oliverjez Gregg Epic Fracture of bone after insertion of orthopedic device (CMS/HCC) Fracture of bone after insertion of orthopedic device (CMS/HCC) Disease Resolve d 2022-05 00:00: 00 2024-11-25 00:00:00 2024-11-25 10:11:37 Oliverjez Glass Acute traumatic pain Acute traumatic pain Disease Resolve d 12-02 00:00: 00 2023-12-03 00:00:00 2023-12-03 10:36:44 Fatuma Gregg Epic Femur fracture, right Femur fracture, right Disease Resolve d 2022-05 00:00: 00 2023-12-03 00:00:00 2023-12-03 10:36:44 Fatuma Gregg Epic Femur fracture, right Femur fracture, right Disease Resolve d 2022-05 00:00: 00 2023-12-03 00:00:00 2023-12-03 10:36:44 Fatuma Gregg Epic Anemia, unspecifie d Anemia, unspecifie d Disease Resolve d 2022-05 00:00: 00 2023-12-03 00:00:00 2023-12-03 10:36:44 Oliverjez Gregg Epic Fracture of femur following insertion of orthopedic implant, joint prosthesis , or bone plate, unspecifie d leg (CMS/HCC) Fracture of femur following insertion of orthopedic implant, joint prosthesis , or bone plate, unspecifie d leg (CMS/HCC) Disease Resolve d 2022-05 00:00: 00 2023-12-03 00:00:00 2023-12-03 10:36:44 Fatuma Glass Unspecifie d fracture of lower end of right femur, subsequent encounter for closed fracture with routine healing Unspecifie d fracture of lower end of right femur, subsequent encounter for closed fracture with routine healing Disease Resolve d 2022-05 1 00:00: 00 2023-12-03 00:00:00 2023-12-03 10:36:44 Fatuma Glass Allergies, Adverse Reactions, Alerts Allergy Name Allergy Type Status Severity Reaction(s) Onset Date Inactive Date Treating Clinician Comments Source Sulfa (Sulfona mide Antibiot ics) Propensi ty to adverse reaction s Active Nausea and/or Vomiting 2017-05 00:00: 00 [facility] SULFA (SULFONA MIDE ANTIBIOT ICS) Drug Class Active N/V 2017-05 00:00: 00 [facility] Sulfa Antibiot ics Drug Allergy Active Anaphylaxis, Hives, Nausea And Vomiting, Unknown 2017-05 00:00: 00 Other Reaction( s): Edema of larynx (code- [id number], SNOMED CT) Fatuma Glass SULFA ANTIBIOT ICS Drug Class Active High Anaphylaxis 2017-05 00:00: 00 MHEOUT ALLERGIE S NOT ON FILE SYSTEMIC Active MHEOUT sulfa drugs sulfa drugs Active Fatuma Gregg Social History Social Habit Start Date Stop Date Quantity Comments Source Gender identity 2023-08-09 12:43:03 Identifies as female gender (finding) Jailyn Glass Exposure to SARS-CoV-2 (event) Not sure [facility] Sexual orientation [facility] ASSERTION Possible Jailyn Glass History of Social function 2024 00:00:00 2024 00:00:00 Jailyn Glass Alcoholic beverage intake 2024-12-11 00:00:00 2024-12-11 00:00:00 Lifetime non-drinker (finding) Jailyn Glass Cigarettes smoked current (pack per day) - Reported 2023-12-03 00:00:00 2023-12-03 00:00:00 Jailyn Gregg [facility] Cigarette pack-years 2023-12-03 00:00:00 2023-12-03 00:00:00 [facility] Tobacco use and exposure 2023-12-03 00:00:00 2023-12-03 00:00:00 Smokeless tobacco non-user [facility] Sex 2023-08-09 12:43:03 2023-08-09 12:43:03 Female (finding) [facility] History of tobacco use 1971-05-19 00:00:00 1972-04-18 00:00:00 Passive smoker [facility] Sex assigned at 1940 00:00:00 1940 00:00:00 [facility] Smoking Status Start Date Stop Date Source Tobacco smoking consumption unknown [facility] Ex-smoker 2023-12-03 00:00:00 2023-12-03 00:00:00 [facility] Tobacco smoking status Aubrey yeboah Cristino Medications Ordered Medication Name Filled Medication Name Start Date Stop Date Current Medication? Ordering Clinician Indication Dosage Frequency Signature (SIG) Comments Components Source lidocaine 4 % patch patch lidocaine 4 % patch patch 12-15 00:00: 00 12-22 23:59 :00 No 1{patch } QD Apply 1 patch over 12 hours topically 1 time each day for 7 days. Fatuma Gregg [facility] predniSONE (Deltasone) 10 MG tablet predniSONE (Deltasone) 10 MG tablet 12-14 13:57: 01 12-14 00:00 :00 No Take by mouth. Tapering dose Fatuma Gregg [facility] Misc Natural Products (NEURIVA PO) Misc Natural Products (NEURIVA PO) 12-14 13:56: 58 Yes 1{tbl} Q.5D Take by mouth. Fatuma Gregg [facility] propranolol (Inderal) 20 MG tablet propranolol (Inderal) 20 MG tablet 12-14 00:00: 00 01-13 23:59 :00 No 20mg [id number] 3D Take 1 tablet by mouth in the morning and 1 tablet at noon and 1 tablet in the evening. Fatuma Gregg [facility] aspirin EC 81 MG EC tablet aspirin EC 81 MG EC tablet 12-14 00:00: 00 01-02 23:59 :00 No 81mg Q.5D Take 1 tablet by mouth in the morning and 1 tablet in the evening. Do all this for 19 days. Fatuma Gregg [facility] methocarbam ol (Robaxin) 500 MG tablet methocarbam ol (Robaxin) 500 MG tablet 12-14 00:00: 00 12-21 23:59 :00 No 500mg Q.5D Take 1 tablet by mouth 2 times a day as needed for muscle spasms for up to 7 days. Fatuma Gregg [facility] meloxicam (Mobic) 15 MG tablet meloxicam (Mobic) 15 MG tablet 12-14 00:00: 00 12-20 23:59 :00 No 15mg QD Take 1 tablet by mouth 1 time each day for 6 days. Fatuma Gregg [facility] urea (URE-NA) packet 15 g urea (URE-NA) packet 15 g 12-13 12:30: 00 Yes 15g Q.5D 15 g, Oral, 2 times daily, First dose on Fri12/13/24 at 1230 Fatuma Gregg [facility] topiramate tablet 100 mg topiramate tablet 100 mg 12-12 09:00: 00 Yes 100mg QD 100 mg, Oral, Daily, First dose on Fri12/12/24 at 0900 Fatuma Gregg [facility] lidocaine 4 % patch 1 patch lidocaine 4 % patch 1 patch 12-12 03:00: 00 Yes 1{patch } QD 1 patch, Apply externally , Administer over 12 Hours, Daily, First dose on Fri12/12/24 at 0300, Apply to most painful incision. Apply for 12 hrs on, then 12 hrs off. Fatuma Gregg [facility] atorvastati n (Lipitor) tablet 40 mg atorvastati n (Lipitor) tablet 40 mg 12-11 21:00: 00 Yes 40mg 40 mg, Oral, Nightly, First dose on Fri12/11/24 at 2100 Fatuma Gregg [facility] sennosides (Senokot) tablet 17.2 mg sennosides (Senokot) tablet 17.2 mg 12-11 21:00: 00 Yes 2{tbl} 17.2 mg (2 tablet), Oral, Nightly, First dose on Fri12/11/24 at 2100 Fatuma Glass topiramate tablet 200 mg topiramate tablet 200 mg 12-11 17:00: 00 Yes 200mg 200 mg, Oral, Every evening, First dose on Fri12/11/24 at 1700 Fatuma Glass cetirizine (ZyrTEC) tablet 5 mg cetirizine (ZyrTEC) tablet 5 mg 12-11 12:00: 00 Yes 5mg QD 5 mg, Oral, Daily, First dose (after last reorder) on Fri12/11/24 at 1200 Fatuma Glass primidone (Mysoline) tablet 250 mg primidone (Mysoline) tablet 250 mg 12-11 10:30: 00 Yes 250mg Q.5D 250 mg, Oral, 2 times daily, First dose on Fri12/11/24 at 1030 Fatuma Glass acetaminoph en (Tylenol) tablet 1,000 mg acetaminoph en (Tylenol) tablet 1,000 mg 12-11 10:30: 00 Yes 1000mg Q8H 1,000 mg, Oral, Every 8 hours, First dose on Fri12/11/24 at 1030, Max acetaminop hen from all sources (geriatric ) = 3,250 mg in 24 hrs. Fatuma Glass oxybutynin (Ditropan) tablet 10 mg oxybutynin (Ditropan) tablet 10 mg 12-11 10:15: 00 Yes 10mg Q.5D 10 mg, Oral, 2 times daily, First dose on Fri12/11/24 at 1015 Fatuma Glass gabapentin (Neurontin) capsule 100 mg gabapentin (Neurontin) capsule 100 mg 12-11 10:15: 00 Yes 100mg 100 mg, Oral, Nightly, First dose on Fri12/11/24 at 1015, ONLY if patient endorses neuropathi c pain. Fatuma Glass aspirin EC EC tablet 81 mg aspirin EC EC tablet 81 mg 12-11 10:00: 00 Yes 81mg 81 mg, Oral, Every 24 hours, First dose on Fri12/11/24 at 1000, Do not crush, chew, or split. Fatuma Glass lidocaine (Xylocaine) 1 % injection 2 mL lidocaine (Xylocaine) 1 % injection 2 mL 12-11 09:27: 38 Yes 2mL 2 mL, Infiltrati on, As needed, To bedside for provider use, Starting on Fri12/11/24 at 0927, Not for iv use Fatuma Glass propranolol (Inderal) tablet 20 mg propranolol (Inderal) tablet 20 mg 12-11 09:15: 00 Yes 20mg Q.[id number] 3D 20 mg, Oral, 3 times daily, First dose on Fri12/11/24 at 0915 Fatuma Glass polyethylen e glycol (PEG) 3350 (Miralax) packet 17 g polyethylen e glycol (PEG) 3350 (Miralax) packet 17 g 12-11 09:00: 00 Yes 17g QD 17 g, Oral, Daily, First dose on [facility] 12/11/24 at 0900, 17 grams of powder dissolved in 4 - 8 ounces of beverage. Hold for more than 1 loose stool in 24 hrs. Dissolve 17 g in 120 to 240 mL (4 to 8 ounces) of beverage. Fatuma Glass enoxaparin (Lovenox) syringe 30 mg enoxaparin (Lovenox) syringe 30 mg 12-11 09:00: 00 Yes 30mg Q.5D 30 mg, Subcutaneo us, Every 12 hours scheduled, First dose on Fri12/11/24 at 0900 Fatuma Glass sodium chloride (NS) 0.9 % flush 10 mL sodium chloride (NS) 0.9 % flush 10 mL 12-11 09:00: 00 Yes 10mL Q.5D 10 mL, Intravenou s, Every 12 hours scheduled, First dose on Fri12/11/24 at 0900, Administer at least once every 12 hours Fatuma Glass celecoxib (CeleBREX) capsule 100 mg celecoxib (CeleBREX) capsule 100 mg 12-11 09:00: 00 12-25 08:59 :00 No 100mg Q.5D 100 mg, Oral, 2 times daily, First dose on Fri12/11/24 at 0900, For 14 days, Limit 7 - 14 days if kidney function is normal. Not recommende d for eGFR< 30 or acute kidney injury. Fatuma Glass methocarbam ol (Robaxin) tablet 500 mg methocarbam ol (Robaxin) tablet 500 mg 12-11 08:57: 50 Yes 500mg Q8H 500 mg, Oral, Every 8 hours PRN, muscle spasms, Starting on 12/11/24 at 0857 Fatuma Glass ondansetron (Zofran) injection 4 mg ondansetron (Zofran) injection 4 mg 12-11 08:57: 10 Yes 4mg Q6H 4 mg, Intravenou s, Every 6 hours PRN, nausea, vomiting, Starting on 12/11/24 at 0857 Fatuma Glass oxyCODONE (Roxicodone ) immediate release tablet 5 mg oxyCODONE (Roxicodone ) immediate release tablet 5 mg 12-11 08:57: 06 12-16 08:56 :06 No 5mg Q6H 5 mg, Oral, Every 6 hours PRN, severe pain (7-10), Pain score 7-10, Starting on 12/11/24 at 0857, For 5 days, Hold for sedation and call MD. Fatuma Glass oxyCODONE (Roxicodone ) solution 2.5 mg oxyCODONE (Roxicodone ) solution 2.5 mg 12-11 08:57: 04 12-16 08:56 :04 No 2.5mg Q6H 2.5 mg, Oral, Every 6 hours PRN, moderate pain (4-6), Pain Score 4-6, Starting on 12/11/24 at 0857, For 5 days, Hold for sedation and call MD. Fatuma Glass naloxone (Narcan) injection 0.04 mg naloxone (Narcan) injection 0.04 mg 12-11 08:56: 53 Yes .04mg 0.04 mg, Intravenou s, As needed, opioid reversal, every 2 mins PRN for Narcotic Reversal, Starting on 12/11/24 at 0856, For 8 doses, Give up to 8 doses of 0.04 mg as needed to reverse over sedation. Keep available for immediate use. Call ordering physician STAT. (Dilute 0.4 mg/mL in 9 mL of saline) Fatuma Glass glucagon injection 1 mg glucagon injection 1 mg 12-11 08:56: 18 Yes 1mg 1 mg, Intramuscu lar, As needed, For BG < 70 mg/dL if no IV access and patient is either Unconsciou s, unable to swallow or npo, Starting on 12/11/24 at 0856, For BG < 70 mg/dL if no IV access and patient is either Unconsciou s, unable to swallow or npo and notify MD. Fatuma Gregg Epic dextrose 50 % solution 25 g dextrose 50 % solution 25 g 12-11 08:56: 18 Yes 25g 25 g, Intravenou s, As needed, other, if Blood Glucose </= 50 mg/dL, Starting on 12/11/24 at 0856, If BG </=50 mg/dL, give 50 mL of D50W IV push STAT and notify MD. Fatuma Gregg Epic dextrose 50 % solution 12.5 g dextrose 50 % solution 12.5 g 12-11 08:56: 18 Yes 12.5g 12.5 g, Intravenou s, As needed, low blood sugar, if Blood Glucose 51- 69 mg/dL, Starting on 12/11/24 at 0856, For BG 51-69 mg/dL and patient UNCONSCIOU S OR UNABLE TO SWALLOW OR NPO: Give 25 mL of D50W IV push and notify MD. Fatuma Gregg Epic sodium chloride (NS) 0.9 % flush 10 mL sodium chloride (NS) 0.9 % flush 10 mL 12-11 08:56: 18 Yes 10mL 10 mL, Intravenou s, As needed, line care, Line Flush, Starting on 12/11/24 at 0856 Fatuma Gregg Epic Potassium chloride solution 40 mEq Potassium chloride solution 40 mEq 12-11 05:55: 00 12-11 06:15 :00 No 40meq 40 mEq, Oral, Once, On 12/11/24 at 0555, For 1 dose, Mix with 4 oz (120ml) of water prior to administra tion Fatuma Glass morphine PF injection 4 mg morphine PF injection 4 mg 12-11 04:55: 00 12-11 05:27 :00 No 4mg 4 mg, Intravenou s, Once, On 12/11/24 at 0455, For 1 dose Fatuma Gregg Epic magnesium sulfate IVPB 2 g magnesium sulfate IVPB 2 g 12-11 04:10: 00 12-11 06:05 :00 No 2g 2 g, Intravenou s, at 25 mL/hr, Administer over 2 Hours, Once, On 12/11/24 at 0410, For 1 dose Fatuma Gregg Epic Potassium chloride solution 20 mEq Potassium chloride solution 20 mEq 12-11 04:10: 00 12-11 04:46 :00 No 20meq 20 mEq, Oral, Once, On 12/11/24 at 0410, For 1 dose, Mix with 4 oz (120ml) of water prior to administra tion Fatuma Gregg Epic iohexol (OMNIPaque) 350 MG/ML injection 80 mL iohexol (OMNIPaque) 350 MG/ML injection 80 mL 12-11 03:49: 58 12-11 03:52 :00 No 80mL 80 mL, Intravenou s, Once in imaging, Starting on 12/11/24 at 0349, For 1 dose Fatuma Glass lidocaine 4 % patch 1 patch lidocaine 4 % patch 1 patch 12-11 02:15: 00 12-12 02:50 :00 No 1{patch } 1 patch, Apply externally , Administer over 12 Hours, Once, On 12/11/24 at 0215, For 1 dose, Remove within 24 hours. Fatuma Glass gabapentin (Neurontin) capsule 100 mg gabapentin (Neurontin) capsule 100 mg 12-11 02:15: 00 12-11 02:50 :00 No 100mg 100 mg, Oral, Once, On 12/11/24 at 0215, For 1 dose, ONLY if patient endorses neuropathi c pain. Fatuma Gregg Epic acetaminoph en (Tylenol) tablet 1,000 mg acetaminoph en (Tylenol) tablet 1,000 mg 12-11 02:15: 00 12-11 02:49 :00 No 1000mg 1,000 mg, Oral, Once, On 12/11/24 at 021, For 1 dose, Max acetaminop hen from all sources (geriatric ) = 3,250 mg in 24 hrs. Fatuma Glass oxyCODONE (Roxicodone ) immediate release tablet 5 mg oxyCODONE (Roxicodone ) immediate release tablet 5 mg 12-11 02:15: 00 12-11 02:50 :00 No 5mg 5 mg, Oral, Once, On 12/11/24 at 0215, For 1 dose Fatuma Glass sodium chloride (NS) 0.9 % flush 10 mL sodium chloride (NS) 0.9 % flush 10 mL 12-11 02:08: 28 Yes 10mL [Order 1 Start] Name: Insert peripheral IV Signed Summary: Once, On 12/11/24 at 0209, For 1 occurrence [Order 1 End] [Order 2 Start] Name: Saline lock IV Signed Summary: Once, On 12/11/24 at 0209, For 1 occurrence [Order 2 End] [Order 3 Start] Name: sodium chloride (NS) 0.9 % flush 10 mL Signed Summary: 10 mL, Intravenou s, As needed, line care, Starting on 12/11/24 at 0208 [Order 3 End] Fatuma Glass propranolol (Inderal) 20 MG tablet propranolol (Inderal) 20 MG tablet 30 00:00: 00 12-14 00:00 :00 No 20mg Q.5D TAKE 1 TABLET BY MOUTH TWICE A DAY Fatuma Glass topiramate (Topamax) 100 MG tablet topiramate (Topamax) 100 MG tablet 06-02 00:00: 00 Yes TAKE 1 TABLET BY MOUTH EVERY MORNING AND 2 TABLETS BY MOUTH IN THE EVENING Fatuma Glass primidone (Mysoline) 250 MG tablet primidone (Mysoline) 250 MG tablet 06-02 00:00: 00 06-02 23:59 :00 No 250mg Q.5D Take 1 tablet by mouth in the morning and 1 tablet in the evening. Fatuma Glass propranolol (Inderal) 20 MG tablet propranolol (Inderal) 20 MG tablet 2023-05 00:00: 00 09-15 00:00 :00 No 20mg Q.5D TAKE 1 TABLET BY MOUTH TWICE A DAY Fatuma Glass Apoaequorin (Prevagen) 10 MG capsule Apoaequorin (Prevagen) 10 MG capsule 12-02 10:47: 13 Yes Take by mouth. Fatuma Glass oxybutynin (Ditropan) 5 MG tablet oxybutynin (Ditropan) 5 MG tablet 12-02 10:47: 13 Yes 5mg Q.5D Take 5 mg by mouth in the morning and 5 mg in the evening. Fatuma Glass atorvastati n (Lipitor) 40 MG tablet atorvastati n (Lipitor) 40 MG tablet 12-02 10:47: 13 Yes 40mg Take 40 mg by mouth at bedtime. Fatuma Glass OXYBUTYNIN CHLORIDE PO OXYBUTYNIN CHLORIDE PO 12-02 10:47: 13 Yes 10mg Q.5D Take 10 mg by mouth in the morning and 10 mg in the evening. Fatuma Glass levocetiriz ine (Xyzal) 2.5 MG/5ML solution levocetiriz ine (Xyzal) 2.5 MG/5ML solution 12-02 10:47: 13 Yes 2.5mg Take 2.5 mg by mouth in the evening. Fatuma Glass aspirin EC 81 MG EC tablet aspirin EC 81 MG EC tablet 12-02 10:47: 13 12-14 00:00 :00 No 1{tbl} Take 1 tablet by mouth 1 time each day at the same time. Fatuma Glass Pumpkin Seed-Soy Germ (AZO Bladder Control/Go- Less) capsule Pumpkin Seed-Soy Germ (AZO Bladder Control/Go- Less) capsule 12-02 10:47: 13 12-11 00:00 :00 No Take by mouth. Fatuma Glass senna-docus ate ([place]-Colac e) 8.6-50 mg tablet senna-docus ate ([place]-Colac e) 8.6-50 mg tablet 12-02 10:47: 13 12-11 00:00 :00 No 1{tbl} QD Take 1 tablet by mouth 1 time each day. Fatuma Gregg Epic primidone (Mysoline) 250 MG tablet primidone (Mysoline) 250 MG tablet 12-02 10:47: 06-02 00:00 :00 No 250mg Q.5D Take 250 mg by mouth in the morning and 250 mg in the evening. Fatuma Gregg Epic topiramate (Topamax) 100 MG tablet topiramate (Topamax) 100 MG tablet 12-02 10:47: 06-02 00:00 :00 No TAKE 1 TABLET BY MOUTH EVERY MORNING AND 2 TABLETS BY MOUTH IN THE EVENING Fatuma Gregg Epic propranolol (Inderal) 20 MG tablet propranolol (Inderal) 20 MG tablet 12-02 10:47: 03-25 00:00 :00 No 20mg Q.5D Take 20 mg by mouth in the morning and 20 mg in the evening. Fatuma Glass primidone 250 mg oral tablet 2022-05 15:18: 00 Yes = 1 tab, PO, BID, # 180 tab, 2 Refill(s), Pharmacy: [facility] #[id number], 154.94, cm, 03/05/23 9:56:00 CDT, Height, 79.545, kg, 03/05/23 9:56:00 CDT, Weight Fatuma Gregg non-formula ry 2022-05 15:01: 00 Yes balance of nature, Refill(s) 0 Fatuma Gregg Prevagen 2022-05 15:01: 00 Yes 50 microgram, PO, Daily, 0 Refill(s) Fatuma Gregg topiramate 100 mg oral tablet 09-03 15:09: 00 Yes 100 mg = 1 tab, PO, BID, # 180 tab, 3 Refill(s), Pharmacy: [facility] #[id number], 154.94, cm, 09/03/22 9:56:00 CDT, Height, 81.818, kg, 09/03/22 9:56:00 CDT, Weight Memoria dhara Gregg Prevagen 18 15:01: 00 Yes 50 microgram, PO, Daily, 0 Refill(s) Memoria l Cristino primidone 250 mg oral tablet 1-31 16:55: 00 Yes = 1 tab, PO, BID, # 180 tab, 2 Refill(s), Pharmacy: [facility] STORE [id number], 154.94, cm, 03/05/22 11:11:00 CDT, Height, 80.455, kg, 03/05/22 11:11:00 CDT, Weight Memoria l Valentine primidone 250 mg oral tablet 08-31 16:11: 00 Yes See Instructio ns, TAKE 1 TABLET BY MOUTH TWICE A DAY, # 180 tab, 2 Refill(s), Pharmacy: [facility] #[id number], 154.94, cm, 08/31/21 10:38:00 CDT, Height, 80.909, kg, 08/31/21 10:38:00 CDT, Weight Memoria l Cristino topiramate 100 mg oral tablet 08-31 16:11: 00 Yes 100 mg = 1 tab, PO, BID, # 180 tab, 3 Refill(s), Pharmacy: [facility] #[id number], 154.94, cm, 08/31/21 10:38:00 CDT, Height, 80.909, kg, 08/31/21 10:38:00 CDT, Weight Memoria dhara CarmonaCristino [facility] 2020-05 015 15:58: 00 Yes 0 Refill(s) Memoria l Valentine primidone 250 mg oral tablet 05 20:20: 00 Yes See Instructio ns, TAKE 1 TABLET BY MOUTH TWICE A DAY, # 180 tab, 2 Refill(s), Pharmacy: [facility] STORE [id number], 154.94, cm, 11/03/20 10:49:00 CDT, Height, 80.455, kg, 11/03/20 10:49:00 CDT, Weight [facility]oria l [facility] topiramate 100 mg oral tablet 18 16:04: 00 Yes 100 mg = 1 tab, PO, BID, # 180 tab, 3 Refill(s), Pharmacy: [facility] #[id number], 154.94, cm, 11/03/20 10:49:00 CDT, Height, 80.455, kg, 11/03/20 10:49:00 CDT, Weight Fatuma Gregg celecoxib 100 mg oral capsule 11-03 15:52: 00 Yes 0 Refill(s) Fatuma Gregg propranolol 20 mg oral tablet 07-07 22:20: 00 Yes 20 mg = 1 tab, PO, BID, # 60 tab, 1 Refill(s) Fatuma Gregg atorvastati n 40 mg oral tablet 07-07 22:20: 00 Yes 40 mg = 1 tab, PO, Bedtime, # 30 tab, 0 Refill(s) Fatuma Gregg PRIMIDONE 250 mg tablet 2019-05 00:00: 00 Yes TAKE 1 TABLET BY MOUTH TWICE A DAY [facility] pumpkin seed extract/soy germ (AZO BLADDER CONTROL ORAL) 10-11 16:52: 54 Yes 100mg Take 100 mg by mouth daily. [facility] levocetiriz ine (XYZAL) 5 mg tablet 10-11 16:52: 54 Yes 5mg Take 5 mg by mouth every evening. [facility] TOPIRAMATE 100 mg tablet 08-18 00:00: 00 Yes [id number] TAKE 1 TABLET BY MOUTH TWICE A DAY [facility] PRIMIDONE 250 mg tablet 08-08 00:00: 00 Yes TAKE 1 TABLET BY MOUTH TWICE A DAY [facility] TOPIRAMATE 100 mg tablet 1-08 00:00: 00 08-18 00:00 :00 No [id number] TAKE 1 TABLET BY MOUTH TWICE A DAY [facility] loratadine (CLARITIN ORAL) 11-20 16:11: 14 Yes 1{tbl} Take 1 tablet by mouth daily. [facility] Multivitami ns with Fluoride (MULTI-HENRIQUE MIN ORAL) 11-20 16:11: 14 Yes Take 1 TAB-CAP/M2 by mouth daily. [facility] BABY ASPIRIN ORAL 7-05 16:09: 34 Yes 1{tbl} Take 1 tablet by mouth daily. [facility] atorvastati n 40 mg tablet 10-11 00:00: 00 Yes TAKE 1 TABLET BY MOUTH EVERYDAY AT BEDTIME [facility] primidone 250 mg tablet 4-04 00:00: 00 Yes 250mg Take 1 tablet by mouth 2 (two) times daily. [facility] oxybutynin chloride 5 mg tablet 2017-05 00:00: 00 Yes [facility] topiramate 100 mg oral tablet 2017-05 13:31: 00 Yes 100 mg = 1 tab, PO, BID, # 60 tab, 3 Refill(s), Pharmacy: [facility] #[id number] Fatuma Gregg propranolol LA 120 mg 24 hr capsule 02-13 00:00: 00 Yes TAKE 1 CAPSULE BY MOUTH TWICE A DAY [facility] propranolol 120 mg oral capsule, extended release 02-12 13:22: 28 No See Valarie cazares, # 180 unknown unit, Refill(s) 1, TAKE 1 CAPSULE BY MOUTH TWICE A DAY, 08/03/18 12:52:42 CDT, Pharmacy: [facility] #[id number] Fatuma Gregg primidone 250 mg oral tablet 02-03 13:25: 29 Yes See Valarie cazares, # 180 tab, Refill(s) 2, TAKE 1 TABLET BY MOUTH TWICE A DAY, Pharmacy: [facility] #[id number] Fatuma Gregg simvastatin 40 mg tablet 02-03 00:00: 00 Yes TAKE 1 TABLET BY MOUTH EVERY EVENING [facility] topiramate 25 mg oral tablet 02-02 14:01: 58 No See Valarie cazares, # 180 tab, Refill(s) 2, TAKE 2 TABLETS BY MOUTH AT BEDTIME, 03/18/18 8:31:56 CDT, Pharmacy: [facility] #[id number] Fatuma Gregg aspirin 81 mg tablet, chewable 3-13 14:44: 00 Yes 81 mg = 1 tab, CHEW, Daily, 0 Refill(s) Fatuma Gregg Centrum Silver oral tablet 07-29 14:44: 00 Yes 1 tab, PO, Daily, 0 Refill(s) Fatuma Gregg oxybutynin 5 mg oral tablet 07-29 14:44: 00 Yes 5 mg = 1 tab, PO, TID, 0 Refill(s) Fatuma Gregg Immunizations Ordered Immunization Name Filled Immunization Name Date Status Comments Source SARS-COV-2 COVID-19 PFIZER VACCINE 2020-08-17 00:00:00 Completed [facility] Pfizer SARS-CoV-2 Bivalent 30 mcg/0.3 mL Pfizer SARS-CoV-2 Bivalent 30 mcg/0.3 mL 2020-08-17 00:00:00 Completed [facility] SARS-COV-2 COVID-19 PFIZER VACCINE 2020-07-27 00:00:00 Completed [facility] Pfizer SARS-CoV-2 Bivalent 30 mcg/0.3 mL Pfizer SARS-CoV-2 Bivalent 30 mcg/0.3 mL 2020-07-27 00:00:00 Completed [facility] [id number] ER Unknown Completed [facility] Vital Signs Vital Name Observation Time Observation Value Comments S ource Heart rate 2024-12-14 07:33:59 79 /min [facility] Respiratory rate 2024-12-14 07:33:59 18 /min [facility] Oxygen saturation in Arterial blood by Pulse oximetry 2024-12-14 07:33:59 97 /min [facility] Systolic blood pressure 2024-12-14 07:33:45 138 mm[Hg] [facility] Diastolic blood pressure 2024-12-14 07:33:45 85 mm[Hg] [facility] Body temperature 2024-12-14 07:33:19 36.67 Lillie [facility] Body height 2024-12-11 01:17:00 157.5 cm [facility] Heart rate 2024-12-14 07:33:59 79 /min [facility] 2024-12-14 07:33:59 18 /min [facility] Oxygen saturation in Arterial blood by Pulse oximetry 2024-12-14 07:33:59 97 /min [facility] Systolic blood pressure 2024-12-14 07:33:45 138 mm[Hg] [facility] Diastolic blood pressure 2024-12-14 07:33:45 85 mm[Hg] [facility] Body temperature 2024-12-14 07:33:[address] [facility] [place] [facility] Body height 2024-12-11 01:17:00 157.5 cm Kaden rial [facility] Systolic blood pressure 2024-11-25 10:22:00 147 mm[Hg] [facility] Diastolic blood pressure 2024-11-25 10:22:00 105 mm[Hg] [facility] Epic Heart rate 2024-11-25 10:22:00 65 /min [facility] Body temperature 2024-11-25 10:22:[address] [facility] [place] [facility] Respiratory rate 2024-11-25 10:22:00 16 /min [facility] Body height 2024-11-25 10:22:00 147.3 cm Kaden rial [facility] Epic Body weight 2024-11-25 10:22:00 73.029 kg Kaden [facility] Epic BMI 2024-11-25 10:22:00 33.65 kg/m2 Kaden [facility] Epic Oxygen saturation in Arterial blood by Pulse oximetry 2024-11-25 10:22:00 97 /min [facility] Systolic blood pressure 2024-11-25 10:22:00 147 mm[Hg] [facility] Diastolic blood pressure 2024-11-25 10:22:00 105 mm[Hg] [facility] Epic Heart rate 2024-11-25 10:22:00 65 /min [facility] Body temperature 2024-11-25 10:22:[address] [facility] [place] [facility] Respiratory rate 2024-11-25 10:22:00 16 /min [facility] Epic Body height 2024-11-25 10:22:00 147.3 cm Kaden rial [facility] Epic Body weight 2024-11-25 10:22:00 73.029 kg Kaden rial [facility] Epic BMI 2024-11-25 10:22:00 33.65 kg/m2 Kaden [facility] Oxygen saturation in Arterial blood by Pulse oximetry 2024-11-25 10:22:00 97 /min [facility] Systolic blood pressure 2024-06-02 10:15:00 148 mm[Hg] [facility] Diastolic blood pressure 2024-06-02 10:15:00 96 mm[Hg] [facility] Heart rate 2024-06-02 10:15:00 64 /min [facility] Body temperature 2024-06-02 10:15:00 36.11 [facility] Respiratory rate 2024-06-02 10:15:00 16 /min [facility] Body height 2024-06-02 10:15:00 149.9 cm Kaden [facility] Body weight 2024-06-02 10:15:00 77.565 kg Kaden [facility] Epic BMI 2024-06-02 10:15:00 34.54 kg/m2 Kaden [facility] Oxygen saturation in Arterial blood by Pulse oximetry 2024-06-02 10:15:00 93 /min [facility] Systolic blood pressure 2024-06-02 10:15:00 148 mm[Hg] [facility] Diastolic blood pressure 2024-06-02 10:15:00 96 mm[Hg] [facility] Heart rate 2024-06-02 10:15:00 64 /min [facility] Body temperature 2024-06-02 10:15:00 36.11 [facility] Respiratory rate 2024-06-02 10:15:00 16 /min [facility] Body height 2024-06-02 10:15:00 149.9 cm Kaden rial [facility] Epic Body weight 2024-06-02 10:15:00 77.565 kg Kaden [facility] Epic BMI 2024-06-02 10:15:00 34.54 kg/m2 Kaden [facility] Epic Oxygen saturation in Arterial blood by Pulse oximetry 2024-06-02 10:15:00 93 /min [facility] Systolic blood pressure 2023-12-03 10:50:00 131 mm[Hg] [facility] Diastolic blood pressure 2023-12-03 10:50:00 89 mm[Hg] [facility] Epic Heart rate 2023-12-03 10:50:00 61 /min [facility] Body temperature 2023-12-03 10:50:00 36.33 Lillie [facility] Epic Respiratory rate 2023-12-03 10:50:00 16 /min [facility] Body height 2023-12-03 10:50:00 149.9 cm Kaden [facility] Epic Body weight 2023-12-03 10:50:00 73.392 kg Kaden zehral [facility] Epic BMI 2023-12-03 10:50:00 32.68 kg/m2 Kaden [facility] Systolic blood pressure 2023-12-03 10:50:00 131 mm[Hg] [facility] Epic Diastolic blood pressure 2023-12-03 10:50:00 89 mm[Hg] [facility] Epic Heart rate 2023-12-03 10:50:00 61 /min [facility] Body temperature 2023-12-03 10:50:00 36.33 Lillie [facility] Respiratory rate 2023-12-03 10:50:00 16 /min [facility] Body height 2023-12-03 10:50:00 149.9 cm [facility] Body weight 2023-12-03 10:50:[address] [facility] BMI 2023-12-03 10:50:00 32.68 kg/m2 [facility] Systolic blood pressure 2019-10-12 16:52:00 107 mm[Hg] [facility] Diastolic blood pressure 2019-10-12 16:52:00 77 mm[Hg] [facility] Heart rate 2019-10-12 16:52:00 56 /min [facility] Body temperature 2019-10-12 16:52:00 36.67 Lillie [facility] Respiratory rate 2019-10-12 16:52:00 17 /min [facility] Body height 2019-10-12 16:52:00 162.6 cm [facility] Body weight 2019-10-12 16:52:00 75.411 kg [facility] BMI 2019-10-12 16:52:00 28.54 kg/m2 [facility] Systolic (mm Hg) 2023-03-05 14:34:00 [facility] Diastolic (mm Hg) 2023-03-05 14:34:00 [facility] Heart Rate 2023-03-05 14:34:00 [facility] Height 2023-03-05 14:34:00 5 [ft_i] [facility] Weight 2023-03-05 14:34:00 [facility] BMI Calculated 2023-03-05 14:34:00 [facility] Systolic (mm Hg) 2022-09-03 14:52:00 [facility] Diastolic (mm Hg) 2022-09-03 14:52:00 [facility] Heart Rate 2022-09-03 14:52:00 [facility] Height 2022-09-03 14:52:00 5 [ft_i] [facility] Weight 2022-09-03 14:52:00 [facility] BMI Calculated 2022-09-03 14:52:00 [facility] Systolic (mm Hg) 2022-03-05 16:01:00 [facility] Diastolic (mm Hg) 2022-03-05 16:01:00 [facility] Heart Rate 2022-03-05 16:01:00 [facility] Height 2022-03-05 16:01:00 5 [ft_i] [facility] Weight 2022-03-05 16:01:00 [facility] BMI Calculated 2022-03-05 16:01:00 [facility] Systolic (mm Hg) 2021-08-31 15:38:00 [facility] Diastolic (mm Hg) 2021-08-31 15:38:00 [facility] Heart Rate 2021-08-31 15:38:00 [facility] Respitory Rate 2021-08-31 15:38:00 [facility] Height 2021-08-31 15:38:00 154.94 cm [facility] Weight 2021-08-31 15:38:00 [facility] BMI Calculated 2021-08-31 15:38:00 [facility] Heart Rate 2021-03-02 15:35:00 [facility] Respitory Rate 2021-03-02 15:35:00 [facility] Systolic (mm Hg) 2021-03-02 15:35:00 [facility] Diastolic (mm Hg) 2021-03-02 15:35:00 [facility] Systolic (mm Hg) 2020-11-03 15:39:00 [facility] Diastolic (mm Hg) 2020-11-03 15:39:00 [facility] Heart Rate 2020-11-03 15:39:00 [facility] Respitory Rate 2020-11-03 15:39:00 [facility] Height 2020-11-03 15:39:00 154.94 cm [facility] Weight 2020-11-03 15:39:00 [facility] BMI Calculated 2020-11-03 15:39:00 [facility] Systolic (mm Hg) 2020-07-07 22:04:00 [facility] Diastolic (mm Hg) 2020-07-07 22:04:00 [facility] Heart Rate 2020-07-07 22:04:00 [facility] Respitory Rate 2020-07-07 22:04:00 [facility] Height 2020-07-07 22:04:00 157.48 cm [facility] Weight 2020-07-07 22:04:00 [facility] BMI Calculated 2020-07-07 22:04:00 [facility] Procedures Procedure Date / Time Performed Performing Clinician Source BASIC METABOLIC PANEL 2024-12-14 06:04:00 Sherin Castillo [facility] BASIC METABOLIC PANEL 2024-12-13 05:44:00 Sherin Castillo [facility] BASIC METABOLIC PANEL 2024 06:32:00 Sherin Castillo [facility] COMPLETE BLOOD COUNT W/DIFF AND PLATELET 2024 06:32:00 Sherin Castillo [facility] COMPLETE BLOOD COUNT 2024 06:32:00 Sherin Castillo [facility] AUTOMATED DIFFERENTIAL 2024 06:32:00 Sherin Castillo [facility] TYPE AND SCREEN 2024-12-11 07:23:00 Marcos Nunes [facility] TROPONIN I HIGH SENSITIVITY CARESET (1ST HR) 2024-12-11 05:30:00 Nohelia Nuneskasz [facility] ECG 12-LEAD 2024-12-11 05:18:12 Nohel[address] [facility] [address] CHEST ABDOMEN PELVIS W IV CONTRAST 2024-12-11 03:59:39 Timothy Nunessz [facility] CT BRAIN WO IV CONTRAST 2024-12-11 03:59:29 Nohel[address] [facility] CT CERVICAL SPINE WO IV CONTRAST 2024-12-11 03:59:29 Nohelia Nuneskasz [facility] BASIC METABOLIC PANEL 2024-12-11 03:38:00 Nohelia Nuneskasz [facility] HEPATIC FUNCTION PANEL 2024-12-11 03:38:00 Nohelia Nuneskasz [facility] ETHANOL LEVEL 2024-12-11 03:38:00 Nohelia Nuneskasz [facility] BLOOD GAS, VENOUS 2024-12-11 03:38:00 Nohelia Nuneskasz [facility] COMPLETE BLOOD COUNT W/DIFF AND PLATELET 2024-12-11 03:38:00 Nohelia Nuneskasz [facility] DRUG SCREEN URINE (8 DRUGS) 2024-12-11 03:38:00 Marcos Nunes [facility] TROPONIN I HIGH SENSITIVITY CARESET 2024-12-11 03:38:00 Nohelia Nuneskasz [facility] THROMBOELASTOGRAPH RAPID 2024-12-11 03:38:00 Nohelia Nuneskasz [facility] TROPONIN I HIGH SENSITIVITY CARESET (BASELINE) 2024-12-11 03:38:00 Nohelia Nuneskasz [facility] LACTIC ACID WITH 2 HOUR REFLEX 2024-12-11 03:38:00 Marcos Nunes [facility] UA WITH CULTURE IF INDICATED 2024-12-11 03:38:00 Nohelia Nuneskasz [facility] COMPLETE BLOOD COUNT 2024-12-11 03:38:00 [facility] AUTOMATED DIFFERENTIAL 2024-12-11 03:38:00 Marcos Nunes [facility] AUTHORIZATION FOR RELEASE OF PHI 2020-06-08 06:01:00 Doctor Unassigned, [place] [facility] ASSIGNMENT OF BENEFITS 2019-10-12 16:09:31 Doctor Unassigned, [place] [facility] POCT Glucose [facility] Plan of Care Planned Activity Planned Date Details Comments Source Encounters Start Date/Time End Date/Time Encounter Type Admission Type Attending [facility] Facility Care Department Encounter ID Source 2025-01-06 10:30:00 2025-01-06 10:30:00 Outpatient MEGAN SEXTON [facility] [id number] [facility] 2024-12-11 01:20:00 2024-12-14 13:00:00 Hospital Encounter Cammie Wilson Bilal S Shah, Bhrugesh Jogesdottie [facility] 1.2.840.114 350.1.13.70 8.2.7.2.686 [id number] Fatuma Gregg [facility] 2024-12-11 01:20:00 2024-12-14 13:00:00 Inpatient Emergency SHERIN CASTILLO [facility] General Medicine [id number] [facility] 2024-12-11 03:17:11 2024-12-11 03:17:11 Outpatient [facility] [id number] [facility] 2024-12-11 03:04:28 2024-12-11 03:04:28 Outpatient [facility] [id number] [facility] 2024-12-11 03:03:54 2024-12-11 03:03:54 Outpatient [facility] [id number] [facility] 2024-12-11 03:03:04 2024-12-11 03:03:04 Outpatient [facility] [id number] [facility] 2024-12-11 03:02:45 2024-12-11 03:02:45 Outpatient [facility] [id number] [facility] 2024-12-11 03:02:33 2024-12-11 03:02:33 Outpatient [facility] [id number] [facility] 2024-12-11 00:00:00 2024-12-11 03:02:33 Orders Only System, Provider Not In [facility] 1.2.840.114 350.1.13.70 8.2.7.2.686 [id number] Fatuma jules [facility] 2024-11-25 10:15:00 2024-11-25 11:07:15 Office Visit Eda Perkins 1.2.840.114 350.1.13.70 8.2.7.2.686 [id number] Fatuma [facility] 2024-11-25 10:00:28 2024-11-25 11:07:15 Outpatient Elective EDA PERKINS [facility] [id number] [facility] 2024-09-15 00:00:00 2024-09-15 14:15:51 Refill Eda Perkins 1.2.840.114 350.1.13.70 8.2.7.2.686 [id number] Fatuma jules [facility] 2024-06-02 09:56:44 2024-06-02 10:43:58 Outpatient EDA PERKINS [facility] [id number] [facility] 2024-06-02 10:15:00 2024-06-02 10:30:00 Office Visit Eda Perkins 1.2.840.114 350.1.13.70 8.2.7.2.686 [id number] Fatuma jules [facility] 2024-03-25 00:00:00 2024-03-25 09:56:29 Refill Eda Perkins 1.2.840.114 350.1.13.70 8.2.7.2.686 [id number] [facility] 2023-12-03 10:33:33 2023-12-03 11:16:04 Outpatient EDA PERKINS [facility] [id number] [facility] 2023-12-03 10:15:00 2023-12-03 10:30:00 Office Visit Eda Perkins [facility] 1.2.840.114 350.1.13.70 8.2.7.2.686 [id number] Fatuma Gregg [facility] 2023-09-25 11:00:00 2023-09-25 11:07:50 Office Visit Billy Zepeda [facility] [address] 1.2.840.114 350.1.13.58 9.2.7.2.686 [id number] [facility] 2023-09-25 11:00:00 2023-09-25 11:00:00 [facility] [id number] [facility] 2023-09-03 10:00:00 2023-09-03 10:00:00 Outpatient [facility] [place] [id number] Fatuma jules [facility] 2023-06-26 10:30:00 2023-06-26 10:30:00 [facility] [id number] [facility] 2023-06-26 10:30:00 2023-06-26 10:30:00 Office Visit Billy Zepeda [facility] [address] 1.2.840.114 350.1.13.58 9.2.7.2.686 [id number] [facility] 2023-04-24 09:45:00 2023-04-24 10:52:43 Office Visit Tez Gomez [facility] [address] 1.2.840.114 350.1.13.58 9.2.7.2.686 [id number] [facility] 2023-04-24 09:45:00 2023-04-24 09:45:00 [facility]patient [facility] [id number] [facility] 2023-04-09 08:00:00 2023-04-09 08:00:00 Outpatient RIAZ MCKENZIE [facility] [id number] [facility] 2023-03-21 02:27:00 2023-03-28 11:50:00 Inpatient FRANCO HOFFMAN [facility] [id number] [facility] 2023-03-21 10:00:00 2023-03-21 10:00:00 Outpatient BILLY ZEPEDA [facility] [id number] [facility] 2023-03-05 15:00:00 2023-03-06 04:59:59 Outpatient [facility] [id number] Fatuma Gregg 2022-09-03 14:45:00 2022-09-04 04:59:59 Outpatient [facility] [id number] Fatuma Gregg 2022-03-05 15:45:00 2022-03-06 04:59:59 Outpatient nullFlavo r [facility] [id number] Fatuma Gregg 2021-08-31 15:30:00 2021-09-01 04:59:59 Outpatient nullFlavo r [facility] [id number] Fatuma Carmonaann 2021-03-02 15:30:00 2021-03-03 04:59:59 Outpatient nullFlavo r [facility] [id number] Fatuma Gregg 2020-11-03 15:30:00 2020-11-04 04:59:59 Outpatient nullFlavo r [facility] [id number] Fatuma jules [facility] 2020-10-29 00:00:00 2020-10-29 00:00:00 Leandro Younger [facility] 1.2.840.114 350.1.13.10 4.2.7.2.686 [id number] [facility] 2020-08-17 14:40:00 2020-08-17 14:40:00 Outpatient TIFFANIE TYLER [facility] [id number] [facility] 2020-07-27 14:50:00 2020-07-27 14:50:00 Outpatient TIFFANIE TYLER [facility] [id number] [facility] 2020-07-07 22:00:00 2020-07-08 05:59:59 Outpatient barbraFlavo jasiel [facility]ASS[facility] [id number] Fatuma Gregg 2020-06-09 00:00:00 2020-06-09 00:00:00 Telephone Leandro Vaughn [facility] 1.2.840.114 350.1.13.10 4.2.7.2.686 [id number] [facility] 2020-06-08 00:00:00 2020-06-08 00:00:00 Orders Only Doctor Unassigned, [place] [facility] 1.2.840.114 350.1.13.10 4.2.7.2.686 [id number] [facility] 2020-05-03 00:00:00 2020-05-03 00:00:00 Refill Leandro Vaughn [facility] 1..840.114 350.1.13.10 4.2.7.2.686 [id number] [facility] 2019-10-13 11:06:53 2019-10-13 11:21:53 Carrot Buncher Visit 2, Adc Lab Leandro Vaughn [facility] 1.2.840.114 350.1.13.10 4.2.7.2.686 [id number] [facility] 2019-10-13 10:30:00 2019-10-13 10:30:00 Outpatient LEANDRO ALVARADO HOWARD [facility] [id number] [facility] 2019-10-12 11:09:36 2019-10-12 11:59:41 Office Visit Leandro Vaughn [facility] 1.2.840.114 350.1.13.10 4.2.7.2.686 [id number] [facility] 2019-10-12 11:00:00 2019-10-12 11:00:00 Outpatient Jasiel LEWISELEANDRO HOWARD [facility] [id number] [facility] 2019-10-12 00:00:00 2019-10-12 00:00:00 Orders Only Doctor Unassigned, [place] [facility] 1.2840.114 350.1.13.10 4.2.7.2.686 [id number] [facility] 2019-08-19 00:00:00 2019-08-19 00:00:00 Leandro Younger [facility] 1.2.840.114 350.1.13.10 4.2.7.2.686 [id number] [facility] 2019-08-19 00:00:00 2019-08-19 00:00:00 Mary Vaughn Leandro [facility] 1..840.114 350.1.13.10 4.2.7.2.686 [id number] [facility] 2019-08-09 00:00:00 2019-08-09 00:00:00 Mary Vaughn Leandro [facility] 1.2.840.114 350.1.13.10 4.2.7.2.686 [id number] [facility] 2019-07-31 00:00:00 2019-07-31 00:00:00 Mary LewisLeandro trejo [facility] 1.2.840.114 350.1.13.10 4.2.7.2.686 [id number] [facility] 2018-11-03 13:16:15 2018-11-05 04:59:59 Outside Medical Records nullFlavo r [facility] [id number] Fatuma Gregg 2018-05-05 17:30:00 2018-05-05 17:30:00 Ambulatory Pre-Reg nullFlavo r [facility] [id number] Fatuma Gregg 2018-04-02 16:32:00 2018-04-04 05:59:59 Phone Message nullFlavo r [facility] [id number] Fatuma Gregg 2018-03-17 23:20:00 2018-03-19 04:59:59 Phone Message nullFlavo r [facility] [id number] Fatuma Gregg 2017-12-09 11:45:00 2017-12-09 11:45:00 Outpatient [facility] [id number] Fatuma Gregg 2017-08-07 09:30:00 2017-08-07 09:30:00 Outpatient [facility] [id number] Fatuma Gregg Results Test Description Test Time Test Comments Results Result Co mments Source [facility] CT CHEST ABDOMEN PELVIS W IV [id number] 13:10:33EXAM: CT CHEST WITH CONTRASTEXAM: CT ABDOMEN AND PELVIS WITH CONTRAST DATE: 12/11/2024 3:39 INDICATION: Trauma, fall COMPARISON: Outside CT abdomen pelvis 12/10/2024. TECHNIQUE: Volumetric CT of the chest, abdomen and pelvis is acquired followingintravenous administration of contrast. Axial, coronal and sagittal images areprovided. Thin section multiplanar as well as three- dimensional surface renderedimages of the pelvis were acquired at the technologist workstation. FINDINGS: Target Aircraft Technician: Noncontributory. Lines and tubes: None. Lower Neck: Supraclavicular soft tissues are within normal limits. A 0.8 cmnodule within the right thyroid lobe. Thoracic Aorta and Mediastinum: No mediastinal hematoma or thoracic aorticinjury. Normal heart and pericardium. The main pulmonary artery is enlargedmeasuring 3.5 cm. Lungs, Pleura, Diaphragm: No pulmonary contusions. Bilateral dependentsubsegmental atelectasis. Left upper lobe calcified granuloma. Right middle lobesubpleural 0.3 cm nodule, likely a prominent lymph node. No pleural effusion orpneumothorax. No diaphragmatic injury. Liver and biliary tree: No injury. Gallbladder: No injury. Cholelithiasis. Pancreas: No injury. Spleen: No injury. Adrenals:No injury. Kidneys and ureters: No injury. Mild left-sided hydroureteronephrosis. Bladder: No injury. Small bladder diverticulum in the left inferior portion.Moderately fluid distended bladder. Reproductive organs: No injury. Unremarkable uterus and adnexa. Gastrointestinal tract: No injury. Moderate colonic stool burden. Uninflameddiverticula. Peritoneum and retroperitoneum: No fluid collectionsor free air. Lymph nodes: Normal. Vasculature: No vascular injury. Mild vascular calcifications. Spine/ Bones: Generalized osteopenia.* ?Age-indeterminate compression wedge deformity of T1 with minimal vertebralheight loss. * ?Possible acute or subacute fracture of the anterior spur at the inferiorendplate of T1. * ?Acute nondisplaced bilateral sacral ala fractures, at the S1-S2 level, zone1, (series 19, images 44 and 45). * ?Chronic appearing fracture deformity of the right transverse process of L5. * ?Partially visualized right femoral shaft intramedullary fixation hardware. Soft tissues: Small fat-containing umbilical hernia.. IMPRESSION: ?1. ?Acute nondisplaced bilateral sacral ala fractures as described (series 19,images 44 and 45).2. ?Age-indeterminate compression wedge deformity ofT1 with minimal vertebralheight loss.3. ?Possible acute or subacute fracture of the anterior spur at the inferiorendplate of T1.4. ?Cholelithiasis without inflammation identified.5. ?Mild left-sided hydroureteronephrosis.6. ?The main pulmonary artery is enlarged measuring 3.5 cm. This may be seen in pulmonary arterial hypertension. This report was dictated by a Packerhead Machine Operator/Fellow/PARRIS: Hima Bone RES Dr., MD 12/11/2024 4:51 This report was dictated by a Packerhead Machine Operator/Fellow/Physician Solid Fiber Paster Operator. Ihave personally reviewed the images as well as the interpretation and agree withthe findings. Report finalized by: Arian Pozo MD 12/11/2024 13:10Lenarditt, Arian Starr MD - 12/11/2024 EXAM: CT CHEST WITH CONTRASTEXAM: CT ABDOMEN AND PELVIS WITH CONTRASTDATE: 12/11/2024 3:39 INDICATION: Trauma, fall COMPARISON: Outside CT abdomen pelvis 12/10/2024.TECHNIQUE: Volumetric CT of the chest, abdomen and pelvis is acquiredfollowingintravenous administration of contrast. Axial, coronal and sagittal images areprovided. Thin section multiplanar as well as three-dimensional surface renderedimages of the pelvis were acquired at the technologist workstation.FINDINGS:Target Aircraft Technician: Noncontributory.Lines and tubes: None.Lower Neck:Supraclavicular soft tissues are within normal limits. A 0.8 cmnodule within the right thyroid lobe.Thoracic Aorta and Mediastinum: No mediastinal hematoma or thoracic aorticinjury. Normal heart and pericardium. The main pulmonary artery is enlargedmeasuring 3.5 cm. Lungs, Pleura, Diaphragm: No pulmonary contusions. Bilateral dependentsubsegmental atelectasis. Left upper lobe calcified granuloma.Right middle lobesubpleural 0.3 cm nodule, likely a prominent lymph node. No pleural effusion orpneumothorax. No diaphragmatic injury.Liver and biliary tree: No injury.Gallbladder: No injury. Cholelit hiasis.Pancreas: No injury.Spleen: No injury.Adrenals: No injury.Kidneys and ureters: No injury. Mild left-sided hydroureteronephrosis.Bladder: No injury. Small bladder diverticulum in the left inferior portion.Moderately fluid distended bladder.Reproductive organs: No injury. Unremarkable uterus and adnexa.Gastrointestinal tract: No injury. Moderate colonic stool burden. Uninflameddiverticula.Peritoneum and retroperitoneum: No fluid collections or free air.Lymph nodes: Normal.Vasculature: No vascular injury. Mild vascular calcifications.Spine/ Bones: Generalized osteopenia.* Age-indeterminate compression wedge deformity of T1 with minimal vertebralheight loss. * Possible acute or subacute fracture of the anterior spur at the inferiorendplate of T1. * Acute nondisplaced bilateral sacral ala fractures, at the S1-S2 level, zone1, (series 19, images 44 and 45). * Chronic appearing fracturedeformity of the right transverse process of L5. * Partially visualized right femoral shaft intramedullary fixation hardware.Soft tissues: Small fat-containing umbilical hernia..IMPRESSION: 1. Acute nondisplaced bilateral sacral ala fractures as described (series 19,images 44 and 45).2. Age-indeterminate compression wedge deformity of T1 with minimal vertebralheight loss.3. Possible acute or subacute fracture of the anterior spur at the inferiorendplate of T1.4. Cholelithiasis without inflammation identified.5. Mild left-sided hydroureteronephrosis.6. The main pulmonary artery is enlarged measuring 3.5 cm. This may be seen inpulmonary arterial hypertension.This report was dictated by a Packerhead Machine Operator/Fellow/PARRIS: Hima Bone RES Dr., MD 12/11/2024 4:51This report was dictatedby a Packerhead Machine Operator/Fellow/Physician Solid Fiber Paster Operator. Annabelle personally reviewed the images as well asthe interpretation and agree withthe findings.Report finalized by: Arian Pozo MD 12/11/2024 13:10[facility] BRAIN WO IV [id number] 06:12:48EXAM: CT BRAIN WITHOUT CONTRAST DATE: 12/11/2024 3:39 INDICATION: Trauma ? COMPARISON: None. TECHNIQUE: Axial CT images of the brain were obtained. Sagittal and coronalreformats.IV contrast: NoneDLP: Refer to CT protocol form FINDINGS: No acute intracranial hemorrhage or extra-axial collection. No midline shift ormass effect. No brain parenchymal edema. The ventricles and sulci are enlarged from chronic brain parenchymal volumeloss. Periventricular white matter hypoattenuation is nonspecific butlikelyrepresents chronic microvascular ischemic changes. The skull base, calvarium, and included facial bones have no acute fracture. Theparanasal sinuses and mastoid air cells are predominantly clear. IMPRESSION:* ?No acute intracranial hemorrhage or calvarial fracture. This report was dictated bya Packerhead Machine Operator/Fellow/PARRIS: Hima Bone RES Dr., MD 12/11/2024 4:06 This report was dictated by a Packerhead Machine Operator/Fellow/Physician Solid Fiber Paster Operator. Annabelle personally reviewed the images aswell as the interpretation and agree withthe findings. Report finalized by: Lincoln Hou MD 12/11/2024 6:12Ameya, Lincoln Don MD - 12/11/2024 EXAM: CT BRAIN WITHOUT CONTRASTDATE: 12/11/2024 3:39INDICATION: Trauma COMPARISON: None.TECHNIQUE:Axial CT images of the brain were obtained. Sagittal and coronalreformats.IV contrast: NoneDLP: Refer to CT protocol formFINDINGS:No acute intracranial hemorrhage or extra-axial collection. No midline shift ormass effect. No brain parenchymal edema. The ventricles and sulci are enlarged from chronic brain parenchymal volumeloss. Periventricular white matter hypoattenuation is nonspecific but likelyrepresents chronic microvascular ischemic changes. The skull base, calvarium, and included facial bones have no acute fracture. Theparanasal sinuses and mastoid air cells are predominantly clear.IMPRESSION:* No acute intracranial hemorrhage or calvarial fracture.This report was dictated by a Packerhead Machine Operator/Fellow/PARRIS: Hima Bone RES Dr., MD 12/11/2024 4:06This report was dictated by a Packerhead Machine Operator/Fellow/Physician Solid Fiber Paster Operator. Ihave personally reviewed the images as well as the interpretation and agree withthe findings.Report finalized by: Lincoln Hou MD 12/11/2024 6:12[facility] CT CERVICAL SPINE WO IV [id number] 04:38:45EXAM: CT CERVICAL SPINE WITHOUT CONTRAST DATE: 12/11/2024 3:39 INDICATION: Trauma, fall COMPARISON: None TECHNIQUE: Noncontrast CT images of the cervical spine. Axial, sagittal andcoronal images provided. FINDINGS: Target Aircraft Technician: Noncontributory. Bones: No acute fracture or malalignment is identified of thecervical spine.Age-indeterminate compression wedge deformity of the T1 with minimal vertebralheightloss and possible acute or subacute fracture of an anterior inferiorendplate spur. Chronic compression wedge deformity of T2. Multileveldegenerative changes of the cervical spine with degenerative disc disease mostprominent at C4-C6.. There is bilateral facet arthrosis most prominent on theright atC2-C3. There is ankylosis of the left C4- C5 facet joint. Soft tissues: No soft tissue abnormality is identified. Thyroid gland is mildlyheterogeneous. IMPRESSION:1. ?No acute abnormality of the cervic al spine.2. ?Age-indeterminate compression wedge deformity of the T1 vertebral body withminimal vertebral height loss. 3. ?Possible acute or subacute fracture of an anterior inferior endplate spur ofT1. This report was dictated by a Packerhead Machine Operator/Fellow/PARRIS: Hima Bone RES Dr., MD 12/11/2024 4:14 This report was dictated by a Packerhead Machine Operator/Fellow/Physician Solid Fiber Paster Operator. Annabelle personally reviewed the images as well as the interpretation and agree withthe findings. Report finalized by: Arian Pozo MD 12/11/2024 4:38Zelitt, Arian Starr MD - 12/11/2024 EXAM: CT CERVICAL SPINE WITHOUT CONTRASTDATE: 12/11/2024 3:39INDI CATION: Trauma, fallCOMPARISON: NoneTECHNIQUE: Noncontrast CT images of the cervical spine. Axial, sagittal andcoronal images provided.FINDINGS:Target Aircraft Technician: Noncontributory.Bones: No acute fracture or malalignment is identified of the cervical spine.Age-indeterminate compression wedge deformity of the T1with minimal vertebralheight loss and possible acute or subacute fracture of an anterior inferiorendplate spur. Chronic compression wedge deformity of T2. Multileveldegenerative changes of the cervical spine with degenerative disc disease mostprominent at C4-C6.. There is bilateral facet arthrosis most prominent on theright at C2-C3. There is ankylosis of the left C4-C5 facet joint.Soft tissues: No soft tissue abnormality is identified. Thyroid gland is mildlyheterogeneous.IMPRESSION:1. No acute abnormality of the cervical spine.2. Age-indeterminate compression wedge deformity of the T1 vertebral body withminimal vertebral height loss. 3. Possible acute or subacute fracture of an anterior inferior endplate spur ofT1.This report was dictated by a Packerhead Machine Operator/Fellow/PARRIS: Hima Bone RES Dr., MD 12/11/2024 4:14This report was dictated by a Packerhead Machine Operator/Fellow/Physician Solid Fiber Paster Operator. Annabelle personally reviewed the images as well as the interpretation and agree withthe findings.Report finalized by: Arian Pozo MD 12/11/2024 4:38[facility] Consult Notes Date/Time Note Provider Source 2024-12-11 04:36:27 Images from the original note were not included. ORTHOPEDIC SURGERY TRAUMA- CONSULT NOTE Reason for Consult: Pelvic ring injury Source of Consult: ED ORS Attending: Megan Sexton Date of Service: 12/11/2024 Time of Consult: 429 Patient seen: 439 Assessment and Plan: Patient is a 83 y.o. y/o female s/p GLF sustaining: - B sacral fxs - Admit to: hospitalist - Diet: per primary - Weight bearing status: WBAT BLE - Antibiotics: None per ORS - Pain control: MMPR - PT/OT eval and treat - DVT PPx: Per primary team - Pending Surgeries: None at this time Dispo: Trial non-operative management with PT and pain control Admit to hospitalist Sandi Hung, MS, PA-C Department of Orthopedic Surgery- Tra[facility] [place] [facility]: "My lower back hurts" HPI: Pt is a 83 y.o. y/o female status post GLF presenting to [facility] with pelvic pain. Our service was consulted for a pelvic ring injury. Pt was transferring from walker to bed, then fell and landed onto her B knees. Pt notes pain and decreased ROM to the pelvis and BLE. 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 Uses a walker. PMH: HTN, HLD PSH: Past Surgical History: Procedure Laterality Date CATARACT EXTRACTION FEMUR FRACTURE SURGERY Right 03/21/2023 RETROGRADE INTRAMEDULLARY NAILING RIGHT FEMUR HERNIA REPAIR ROTATOR CUFF REPAIR TOTAL KNEE ARTHROPLASTY Meds: Current Facility-Administered Medications: acetaminophen (Tylenol) tablet 1,000 mg, 1,000 mg, Oral, q8h [facility], Marcos Nunes, DO gabapentin (Neurontin) capsule 100 mg, 100 mg, Oral, Nightly, Marcos Tinsleyondla, DO lidocaine (Xylocaine) 1 % injection 2 mL, 2 mL, Infiltration, PRN, Marcos Nunes, DO lidocaine 4 % patch 1 patch, 1 patch, Apply externally, Once, Marcos Nunes DO, 1 patch at 12/11/24 0250 magnesium sulfate IVPB 2 g, 2 g, Intravenous, Once, Marcos Laureanoondla, DO Potassium chloride solution 20 mEq, 20 mEq, Oral, Once, Marcos Laureanoondla, DO Insert peripheral IV, , , Once AND Saline lock IV, , , Once AND sodium chloride (NS) 0.9 % flush 10 mL, 10 mL, Intravenous, PRN, Marcos Nunes, Current Outpatient Medications: Apoaequorin (Prevagen) 10 MG capsule, Take by mouth., Disp: , Rfl: aspirin EC 81 MG EC tablet, Take 1 tablet by mouth 1 time each day at the same time., Disp: , Rfl: atorvastatin (Lipitor) 40 MG tablet, Take 40 mg by mouth at bedtime., Disp: , Rfl: levocetirizine (Xyzal) 2.5 MG/5ML solution, Take 2.5 mg by mouth in the evening., Disp: , Rfl: Misc Natural Products (NEURIVA PO), Take by mouth., Disp: , Rfl: Multiple Vitamins-Minerals (CENTRUM SILVER 50+WOMEN PO), Take by mouth., Disp: , Rfl: OXYBUTYNIN CHLORIDE PO, Take 10 mg by mouth in the morning and 10 mg in the evening., Disp: , Rfl: primidone (Mysoline) 250 MG tablet, Take 1 tablet by mouth in the morning and 1 tablet in the evening., Disp: 180 tablet, Rfl: 2 propranolol (Inderal) 20 MG tablet, TAKE 1 TABLET BY MOUTH TWICE A DAY, Disp: 180 tablet, Rfl: 1 Pumpkin Seed-Soy Germ (AZO Bladder Control/Go-Less) capsule, Take by mouth., Disp: , Rfl: senna-docusate (Catalina-Colace) 8.6-50 mg tablet, Take 1 tablet by mouth 1 time each day., Disp: , Rfl: topiramate (Topamax) 100 MG tablet, TAKE 1 TABLET BY MOUTH EVERY MORNING AND 2 TABLETS BY MOUTH IN THE EVENING, Disp: 270 tablet, Rfl: 3 Denies blood thinners/anticoagulants, Denies bisphosphonate Allergies: Allergies Allergen Reactions Sulfa Antibiotics Anaphylaxis, Hives, Nausea And Vomiting and Unknown Other Reaction(s): Edema of larynx (code- [id number], SNOMED CT) Family Hx: Noncontributory Social Hx: Employment/Living: retired Alcohol: Denies Tobacco: Denies Illicit Drugs: Denies Review of Systems: MSK: see HPI Further ROS otherwise negative except where noted in HPI OBJECTIVE: BP (!) 180/98 | Pulse 80 | Temp 36.7 ?C (98 ?F) | Resp 18 | Ht 1.575 m (5' 2") | SpO2 95% | BMI 31.09 kg/m? PHYSICAL EXAM GENERAL: A&Ox3 CHEST: Equal chest rise bilaterally, non-labored, normal rate, no distress ABDOMEN: Soft, Non-tender, Non-distended PELVIS: Stable to medially directed compression with severe pain. Did not collapse in my hands. RUE: Inspection: No open wounds, obvious deformity, or swelling Palpation: NTTP throughout. Soft, compressible compartments. No crepitus Sensation: SILT R/M/U nerve distributions Motor: Physical Therapy Aides Teacher strength, wrist ext/flex, elbow ext/flex, shoulder abd intact Vascular: Radial pulse 2+ and regular, cap refill <2 sec LUE: Inspection: No open wounds, obvious deformity, or swelling Palpation: NTTP throughout. Soft, compressible compartments. No crepitus Sensation: SILT R/M/U nerve distributions Motor: Physical Therapy Aides Teacher strength, wrist ext/flex, elbow ext/flex, shoulder abd intact Vascular: Radial pulse 2+ and regular, cap refill <2 sec RLE: Inspection: No open wounds, obvious deformity, or swelling Palpation: NTTP throughout. Soft, compressible compartments. No crepitus Sensation: SILT SP/DP/T nerve distributions Motor: Plantarflexion, dorsiflexion, EHL, FHL intact. Vascular: DP and PT pulses 2+ and regular, cap refill <2 sec LLE: Inspection: No open wounds, obvious deformity, or swelling Palpation: NTTP throughout. Soft, compressible compartments. No crepitus Sensation: SILT SP/DP/T nerve distributions Motor: Plantarflexion, dorsiflexion, EHL, FHL intact. Vascular: DP and PT pulses 2+ and regular, cap refill <2 sec Labs: Pertinent Labs : Labs in chart were reviewed. Lab Results Component Value Date WBC 9.82 12/11/2024 Hgb 14.5 12/11/2024 Hct 41.8 12/11/2024 Plt Count 220 12/11/2024 Lab Results Component Value Date Sodium Lvl 133 (L) 12/11/2024 Potassium Lvl 2.9 (LL) 12/11/2024 Chloride Lvl 102 12/11/2024 CO2 Lvl 22.3 12/11/2024 BUN 7 (L) 12/11/2024 Creatinine Lvl 0.58 12/11/2024 Glucose Lvl 117 (H) 12/11/2024 Imaging: === 12/10/24 === XR EXTERNAL BODY Patients imaging has been reviewed by me and I agree with the findings as documented above. Physician Solid Fiber Paster Operator Jailyn Gregg History and Physical Notes Date/Time Note Provider Source 2024-12-11 07:33:58 Subjective Chief Complaint Patient presents with Fall : History Of Present Illness 83-year-old female with a past medical history of hypertension, hyperlipidemia, chronic lymphedema, tremors, presenting to the emergency department as a transfer from an outside hospital for concerns of bilateral sacral honorio fractures. Patient sustained a fall while walking with a rolling walker and transition into her wheelchair and landed on her knee. Patient has been having worsening back pain prior to that fall. She previously fell on 19 November on her back while changing clothes. She did not have any significant pain at that time. Trauma workup with MRI shows indeterminate T11 fracture. Acute and subacute anterior endplate support fracture as well as bilateral acute nondisplaced sacral honorio fractures. Blood work was consistent with hypokalemia which was repleted in the emergency room. Patient required IV morphine in the emergency room. She was examined when she presented to hobs unit. She is denying any paresthesias in lower extremity. Evaluated by orthopedic team who was recommending conservative management. She is being admitted for pain control and PT OT evaluation. Patient will likely require placement. Past Medical History She has a past medical history of Acute traumatic pain (12/03/2023), Anemia, unspecified (03/28/2023), Fall on same level from slipping, tripping or stumbling (03/28/2023), Femur fracture, right (04/24/2023), Fracture of bone after insertion of orthopedic device ([facility] ([facility]) (03/28/2023), Fracture of femur following insertion of orthopedic implant, joint prosthesis, or bone plate, unspecified leg ([facility] ([facility]) (03/28/2023), Tremor, Unspecified fracture of lower end of right femur, subsequent encounter for closed fracture with routine healing (03/28/2023), and Weakness of limb. Surgical History She has a past surgical history that includes Femur fracture surgery (Right, 03/21/2023); Hernia repair; Rotator cuff repair; Total knee arthroplasty; and Cataract extraction. Family History Family History: Problem Relation Name Age of Onset Cancer Mother Cancer Father Cancer Sister Cancer Brother No Known Problems Mother's Sister No Known Problems Mother's Brother No Known Problems Father's Sister No Known Problems Father's Brother No Known Problems Maternal Grandmother No Known Problems Maternal Grandfather No Known Problems Paternal Grandmother No Known Problems Paternal Grandfather No Known Problems Other Social History She reports that she quit smoking about 52 years ago. Her smoking use included cigarettes. She started smoking about 53 years ago. She has a 0.3 pack-year smoking history. She has been exposed to tobacco smoke. She has never used smokeless tobacco. She reports that she does not drink alcohol and does not use drugs. Allergies Sulfa antibiotics Medications Current Outpatient Medications Medication Instructions Apoaequorin (Prevagen) 10 MG capsule Take by mouth. aspirin EC 81 MG EC tablet 1 tablet, Every 24 hours atorvastatin (LIPITOR) 40 mg, Nightly levocetirizine (XYZAL) 2.5 mg, Every evening Misc Natural Products (NEURIVA PO) Take by mouth. Multiple Vitamins-Minerals (CENTRUM SILVER 50+WOMEN PO) Take by mouth. OXYBUTYNIN CHLORIDE PO 10 mg, 2 times daily primidone (MYSOLINE) 250 mg, Oral, 2 times daily propranolol (INDERAL) 20 mg, Oral, 2 times daily Pumpkin Seed-Soy Germ (AZO Bladder Control/Go-Less) capsule Take by mouth. senna-docusate (Catalina-Colace) 8.6-50 mg tablet 1 tablet, Daily topiramate (Topamax) 100 MG tablet TAKE 1 TABLET BY MOUTH EVERY MORNING AND 2 TABLETS BY MOUTH IN THE EVENING Review of Systems ROS is negative except what is noted in HPI Objective Last Recorded Vitals Blood pressure 113/75, pulse 89, temperature 36.7 ?C (98 ?F), resp. rate 20, height 1.575 m (5' 2"), SpO2 96%. Physical Exam: General awake alert oriented very pleasant female not in any apparent distress Heart regular rate and rhythm Lungs clear to auscultation bilaterally Abdomen soft nontender nondistended Neuro oriented x 3 Musculoskeletal lower spine no tenderness noted. Sacral tenderness noted LE in compression stockings Lab Results Results from last 7 days Lab Units 12/11/24 0338 WBC 10*3/uL 9.82 HEMOGLOBIN g/dL 14.5 HEMATOCRIT % 41.8 PLATELETS 10*3/uL 220 Results from last 7 days Lab Units 12/11/24 0338 SODIUM mEq/L 133* POTASSIUM mEq/L 2.9* CHLORIDE mEq/L 102 CO2 mEq/L 22.3 BUN mg/dL 7* CREATININE mg/dL 0.58 GLUCOSE mg/dL 117* CALCIUM mg/dL 8.[address] BRAIN WO IV CONTRAST Result Date: 12/11/2024 EXAM: CT BRAIN WITHOUT CONTRAST DATE: 12/11/2024 3:39 INDICATION: Trauma COMPARISON: None. TECHNIQUE: Axial CT images of the brain were obtained. Sagittal and coronal reformats. IV contrast: None DLP: Refer to CT protocol form FINDINGS: No acute intracranial hemorrhage or extra-axial collection. No midline shift or mass effect. No brain parenchymal edema. The ventricles and sulci are enlarged from chronic brain parenchymal volume loss. Periventricular white matter hypoattenuation is nonspecific but likely represents chronic microvascular ischemic changes. The skull base, calvarium, and included facial bones have no acute fracture. The paranasal sinuses and mastoid air cells are predominantly clear. IMPRESSION: * No acute intracranial hemorrhage or calvarial fracture. This report was dictated by a Packerhead Machine Operator/Fellow/PARRIS: Hima Burrell RES Dr., MD 12/11/2024 4:06 This report was dictated by a Packerhead Machine Operator/Fellow/Physician Solid Fiber Paster Operator. I have personally reviewed the images as well as the interpretation and agree with the findings. Report finalized by: Lincoln Hou MD 12/11/2024 6:12 ECG 12 lead SINUS RHYTHM WITH PREMATURE ATRIAL COMPLEX(ES) ST & T WAVE ABNORMALITY, CONSIDER ANTERIOR ISCHEMIA ABNORMAL ECG WHEN COMPARED WITH ECG OF 21-MAR-2023 00:35, SINUS RHYTHM HAS REPLACED ATRIAL FLUTTER NONSPECIFIC T WAVE ABNORMALITY NO LONGER EVIDENT IN INFERIOR LEADS T WAVE INVERSION NO LONGER EVIDENT IN LATERAL LEADS Trauma CT CHEST ABDOMEN PELVIS W IV CONTRAST Result Date: 12/11/2024 EXAM: CT CHEST WITH CONTRAST EXAM: CT ABDOMEN AND PELVIS WITH CONTRAST DATE: 12/11/2024 3:39 INDICATION: Trauma COMPARISON: None TECHNIQUE: Volumetric CT of the chest, abdomen and pelvis is acquired following intravenous administration of contrast. Axial, coronal and sagittal images are provided. FINDINGS: Target Aircraft Technician: Noncontributory. Lines and tubes: None. Lower Neck: Supraclavicular soft tissues are within normal limits. Thoracic Aorta and Mediastinum: No mediastinal hematoma or thoracic aortic injury. Normal heart and pericardium. The main pulmonary artery is enlarged measuring 3.5 cm Lungs, Pleura, Diaphragm: No pulmonary contusions. Bibasilar subsegmental. Left upper lobe calcified granuloma. Right middle lobe subpleural 0.3 cm nodule, likely a prominent lymph node. No pleural effusion or pneumothorax. No diaphragmatic injury. Liver and biliary tree: No injury. Gallbladder: Normal. Cholelithiasis. Pancreas: No injury. Spleen: No injury. Adrenals: No injury. Kidneys and ureters: No injury. Mild left-sided hydroureteronephrosis. Bladder: No injury. Small bladder diverticulum in the inferior portion. Moderately fluid distended bladder. Reproductive organs: No injury. Gastrointestinal tract: No injury. Peritoneum and retroperitoneum: No fluid collections or free air. Lymph nodes: Normal. Vasculature: No vascular injury. Mild vascular calcifications. Spine/ Bones: Age-indeterminate compression wedge deformity of T1 with minimal vertebral height loss. Acute nondisplaced bilateral sacral wing fractures (series 19, 44 and 45). Chronic appearing fracture deformity of the right transverse process of L5. Partially visualized right femoral intramedullary fixation hardware. Soft tissues: Small fat-containing umbilical hernia.. IMPRESSION: 1. Acute nondisplaced bilateral sacral wing fractures (series 19, 44 and 45). 2. Age-indeterminate compression wedge deformity of T1 with minimal vertebral height loss. 3. Cholelithiasis. 4. Mild left-sided hydroureteronephrosis. 5. The main pulmonary artery is enlarged measuring 3.5 cm. This may be seen in pulmonary hypertension. This report was dictated by a Packerhead Machine Operator/Fellow/PARRIS: Hima Burrell, RES MD [place] 12/11/2024 4:[address] CERVICAL SPINE WO IV CONTRAST Result Date: 12/11/2024 EXAM: CT CERVICAL SPINE WITHOUT CONTRAST DATE: 12/11/2024 3:39 INDICATION: Trauma, fall COMPARISON: None TECHNIQUE: Noncontrast CT images of the cervical spine. Axial, sagittal and coronal images provided. FINDINGS: Target Aircraft Technician: Noncontributory. Bones: No acute fracture or malalignment is identified of the cervical spine. Age-indeterminate compression wedge deformity of the T1 with minimal vertebral height loss and possible acute or subacute fracture of an anterior inferior endplate spur. Chronic compression wedge deformity of T2. Multilevel degenerative changes of the cervical spine with degenerative disc disease most prominent at C4-C6.. There is bilateral facet arthrosis most prominent on the right at C2-C3. There is ankylosis of the left C4-C5 facet joint. Soft tissues: No soft tissue abnormality is identified. Thyroid gland is mildly heterogeneous. IMPRESSION: 1. No acute abnormality of the cervical spine. 2. Age-indeterminate compression wedge deformity of the T1 vertebral body with minimal vertebral height loss. 3. Possible acute or subacute fracture of an anterior inferior endplate spur of T1. This report was dictated by a Packerhead Machine Operator/Fellow/PARRIS: Hima Burrell RES Dr., MD 12/11/2024 4:14 This report was dictated by a Packerhead Machine Operator/Fellow/Physician Solid Fiber Paster Operator. I have personally reviewed the images as well as the interpretation and agree with the findings. Report finalized by: Arian Pozo MD 12/11/2024 4:38 Assessment Assessment & Plan Bilateral sacral insufficiency fracture, initial encounter Non op trial PT OT Pain control T1 vertebral fracture (CMS/HCC) (HCC) Subacute and acute fracture Non op management Hypokalemia Replete and replace Overactive bladder On oxybutynin Peripheral vascular disease (HCC) Continue aspirin and statin Lymphedema Continue with compression compression stockings Tremor, unspecified Continue primidone, propranolol and Topamax Age-related osteoporosis with current pathological fracture, right femur, subsequent encounter for fracture with routine healing Patient will need continued outpatient bone clinic follow-up Difficulty in walking, not elsewhere classified Uses walker and wheelchair VTE prophylaxis: Lovenox twice daily Disposition: patient lives alone with caregiver at home but she does not have a 24-hour caregiver. PT OT evaluation and possible placement T [facility] Notes Date/Time Note Provider Source Referral ID Status Reason Start Date Expiration Date Visits Requested Visits Authorized [id number] Pending Review Specialty Services Required 12/14/2024 02/12/2025 999 999 [facility]2025-07-29 13:57:05* * Auth/Cert (Routine) Specialty Diagnoses / Procedures Referred By Contac t Referred To Contact Diagnoses Bilateral sacral insufficiency fracture, initial encounter Posttraumatic pain Closed fracture of sacrum, unspecified portion of sacrum, initial encounter (CMS/HCC) (HCC) Procedures pending [facility] Inez Loya MD [address] [facility] [address] [place] [address] Phone: tel: fax: [facility] ([place] [address] Clinical Observation) [address] [place] [address] Phone: tel: Referral ID Status Reason Start Date Expiration Date Visits Re quested Visits Authorized [id number] 1 [id number] 13:57:05 [id number] 13:57:05* AUDIT-C Score Answer Date of Assessment Author 0 12/11/2024 9:34 AM Bridgette Casey RN * * Over the past 2 weeks, how often have you been bothered by any of the following problems? Question Answer Date of Assessment Author Little interest or pleasure in doing things Not at all 12/11/2024 9:29 AM Jimmie Casey RN Feeling down, depressed, or hopeless Not at all 12/11/2024 9:29 AM Jimmie Casey RN Patient Health Questionnaire-2 Score 0 12/11/2024 9:29 AM Sophie Casey RN * Calculated C-SSRS Risk Score (Lifetime/Recent) Answer Date of Assessment Author No Risk Indicated 12/11/2024 9:38 AM Peyton Casey RN * In the past month, have you... Question Answer Date of Assessment Author Had nightmares about the angela nts or thought about the events when you did not want to? No 12/11/2024 9:29 AM Jimmie Casey RN Tried hard not to think abou t the events or went out of your way to avoid situations that reminded you of the events? No 12/11/2024 9:29 AM MARTHAT Jimmie Hudson RN Been constantly on guard, watchful, or easily startled? No 12/11/2024 9:29 AM MARTHAT Peyton Hudson RN [place] numb or detached from people, activities, or your surroundings? No 12/11/2024 9:29 AM MARTHAT Jimmie Hudson RN [place] guilty or unable to sto p blaming yourself or others for the events or any problems the events may have caused? No 12/11/2024 9:29 AM MARTHAT Jimmie Hudson RN * Bailey Suicide Severity Rating Scale (Screener/Recent Self-Report) Question Answer Date of Assessment Author 1. Wish to be (Past 1 Month) No 12/11/2024 9:38 AM MARTHAT Jimmie Hudson RN 2. Non-Specific Active Suici geneva Thoughts (Past 1 Month) No 12/11/2024 9:38 AM MARTHAT Js Hudson RN 6. Suicidal Behavior (Lifetime) No 9:38 AM MARTHAT Peyton Hudson RN * Primary Care PTSD Score Question Answer Date of Assessment Author Primary Care PTSD Total Score 1 12/11/2024 9:29 AM MARTHAT [facility]eyton [id number] 13:57:05* Chloe Alvares - 12/14/2024 11:41 AM CDT 12/14/24 1140 Discharge Planning Does the patient need discharge transport arranged? Yes Has discharge transport been arranged? Yes Anticipated Transportation Needed [place] [phone] What day is the transport expected? 12/14/24 What time is the transport expected? 1200 Discharge Planning Comments [facility] Discharge Planning Status Complete * AMINA Morataya - 12/14/2024 9:05 AM CDT ORS CLOSED FRACTURE CARE NOTE Date of service: 12/14/24 9:06 AM Chief Complaint: B sacral ala fx HPI: 84 y.o. female s/p GLF w B sacral ala fx as seen on films. She is doing well today. Pain has improved. Working w PT. Able to ambulated with a walker to the restroom. Plans to dc home today. Has a caregiver and her daughter who come to her home routinely. No other concerns expressed at this time. PMH: Past Medical History: Diagnosis Date Acute traumatic pain 12/03/2023 Anemia, unspecified 03/28/2023 Fall on same level from slipping, tripping or stumbling 03/28/2023 Femur fracture, right 04/24/2023 Fracture of bone after insertion of orthopedic device ([facility] ([facility]) 03/28/2023 Fracture of femur following insertion of orthopedic implant, joint prosthesis, or bone plate, unspecified leg ([facility] ([facility]) 03/28/2023 Tremor Unspecified fracture of lower end of right femur, subsequent encounter for closed fracture with routine healing 03/28/2023 Weakness of limb Lymphedema PSH: Past Surgical History: Procedure Laterality Date CATARACT EXTRACTION FEMUR FRACTURE SURGERY Right 03/21/2023 RETROGRADE INTRAMEDULLARY NAILING RIGHT FEMUR HERNIA REPAIR ROTATOR CUFF REPAIR TOTAL KNEE ARTHROPLASTY FMH: noncontributory SH: Social History Occupational History Not on file Tobacco Use Smoking status: Former Current packs/day: 0.00 Average packs/day: 0.2 packs/day for 1.1 years (0.3 ttl pk-yrs) Types: Cigarettes Start date: 05/19/1971 Quit date: 04/18/1972 Years since quittin.6 Passive exposure: Past Smokeless tobacco: Never Vaping Use Vaping status: Never Used Substance and Sexual Activity Alcohol use: Never Drug use: Never Sexual activity: Never Allergies: Allergies Allergen Reactions Sulfa Antibiotics Anaphylaxis, Hives, Nausea And Vomiting and Unknown Other Reaction(s): Edema of larynx (code- [id number], SNOMED CT) Scheduled Meds: acetaminophen, 1,000 mg, Oral, q8h aspirin EC, 81 mg, Oral, q24h atorvastatin, 40 mg, Oral, Nightly celecoxib, 100 mg, Oral, BID cetirizine, 5 mg, Oral, Daily enoxaparin, 30 mg, Subcutaneous, q12h WILLOW gabapentin, 100 mg, Oral, Nightly lidocaine, 1 patch, Apply externally, Daily oxybutynin, 10 mg, Oral, BID polyethylene glycol (PEG) 3350, 17 g, Oral, Daily primidone, 250 mg, Oral, BID propranolol, 20 mg, Oral, TID sennosides, 2 tablet, Oral, Nightly sodium chloride, 10 mL, Intravenous, q12h WILLOW topiramate, 100 mg, Oral, Daily topiramate, 200 mg, Oral, q PM urea, 15 g, Oral, BID PRN Meds: PRN medications: dextrose, dextrose, glucagon, lidocaine, methocarbamol, naloxone, ondansetron, oxyCODONE, oxyCODONE, [COMPLETED] Insert peripheral IV AND [COMPLETED] Saline lock IV AND sodium chloride, sodium chloride ROS:Musculoskeletal: Denies all but HPI. All other systems negative except HPI. Vitals:12/14/24 0437 12/14/24 0733 12/14/24 0733 12/14/24 0733 BP: 138/85 Pulse: 76 79 Resp: 20 18 Temp: 36.7 ?C (98 ?F) SpO2: 95% 97% PE: General: NAD, lying in bed, comfortable. Neuro: Alert, awake,, follows commands well HEENT: Normocephalic, MM pink and moist Respiratory: Non-labored breathing, speaks without effort Skin: well perfused, warm RLE: - INSPECTION: Compartments are compressible Lymphedema dressings in place. - SENSORY: Sensory intact to light touch in the distribution of deep peroneal, superficial peroneal and tibial nerves. - MOTOR: Motor function appreciated in the EHL/FHL, tibialis anterior and gastrocnemius. - VASCULAR: Toes are warm, brisk cap refill, dorsalis pedis pulse is palpable LLE: - INSPECTION: Compartments are compressible Lymphedema dressings in place. - SENSORY: Sensory intact to light touch in the distribution of deep peroneal, superficial peroneal and tibial nerves. - MOTOR: Motor function appreciated in the EHL/FHL, tibialis anterior and gastrocnemius. - VASCULAR: Toes are warm, brisk cap refill, dorsalis pedis pulse is palpable Diagnostic Data:Narrative & Impression EXAM: CT CHEST WITH CONTRAST EXAM: CT ABDOMEN AND PELVIS WITH CONTRAST DATE: 12/11/2024 3:39 INDICATION: Trauma, fall COMPARISON: Outside CT abdomen pelvis 12/10/2024. TECHNIQUE: Volumetric CT of the chest, abdomen and pelvis is acquired following intravenous administration of contrast. Axial, coronal and sagittal images are provided. Thin section multiplanar as well as three-dimensional surface rendered images of the pelvis were acquired at the technologist workstation. FINDINGS: Target Aircraft Technician: Noncontributory. Lines and tubes: None. Lower Neck: Supraclavicular soft tissues are within normal limits. A 0.8 cm nodule within the right thyroid lobe. Thoracic Aorta and Mediastinum: No mediastinal hematoma or thoracic aortic injury. Normal heart and pericardium. The main pulmonary artery is enlarged measuring 3.5 cm. Lungs, Pleura, Diaphragm: No pulmonary contusions. Bilateral dependent subsegmental atelectasis. Left upper lobe calcified granuloma. Right middle lobe subpleural 0.3 cm nodule, likely a prominent lymph node. No pleural effusion or pneumothorax. No diaphragmatic injury. Liver and biliary tree: No injury. Gallbladder: No injury. Cholelithiasis. Pancreas: No injury. Spleen: No injury. Adrenals: No injury. Kidneys and ureters: No injury. Mild left-sided hydroureteronephrosis. Bladder: No injury. Small bladder diverticulum in the left inferior portion. Moderately fluid distended bladder. Reproductive organs: No injury. Unremarkable uterus and adnexa. Gastrointestinal tract: No injury. Moderate colonic stool burden. Uninflamed diverticula. Peritoneum and retroperitoneum: No fluid collections or free air. Lymph nodes: Normal. Vasculature: No vascular injury. Mild vascular calcifications. Spine/ Bones: Generalized osteopenia.* Age-indeterminate compression wedge deformity of T1 with minimal vertebral height loss. * Possible acute or subacute fracture of the anterior spur at the inferior endplate of T1. * Acute nondisplaced bilateral sacral ala fractures, at the S1-S2 level, zone 1, (series 19, images 44 and 45). * Chronic appearing fracture deformity of the right transverse process of L5. * Partially visualized right femoral shaft intramedullary fixation hardware. Soft tissues: Small fat-containing umbilical hernia.. IMPRESSION:1. Acute nondisplaced bilateral sacral ala fractures as described (series 19, images 44 and 45). 2. Age-indeterminate compression wedge deformity of T1 with minimal vertebral height loss. 3. Possible acute or subacute fracture of the anterior spur at the inferior endplate of T1. 4. Cholelithiasis without inflammation identified. 5. Mild left-sided hydroureteronephrosis. 6. The main pulmonary artery is enlarged measuring 3.5 cm. This may be seen in pulmonary arterial hypertension. This report was dictated by a Packerhead Machine Operator/Fellow/PARRIS: Hima Burrell, RES MD [place] 12/11/2024 4:51 This report was dictated by a Packerhead Machine Operator/Fellow/Physician Solid Fiber Paster Operator. I have personally reviewed the images as well as the interpretation and agree with the findings. Pertinent Labs : Results from last 7 days Lab Units 12/12/24 0632 12/11/24 0338 WBC 10*3/uL 10.06 9.82 HEMOGLOBIN g/dL 13.0 14.5 HEMATOCRIT % 37.6 41.8 PLATELETS 10*3/uL 248 220 Results from last 7 daysLab Units 12/13/24 0544 12/12/24 0632 12/11/24 0338 SODIUM mEq/L 131* 131* 133* POTASSIUM mEq/L 4.0 4.0 2.9* CHLORIDE mEq/L 98 97* 102 CO2 mEq/L 22.0 22.0 22.3 BUN mg/dL 11 9 7* CREATININE mg/dL 0.58 0.63 0.58 GLUCOSE mg/dL 116* 100* 117* CALCIUM mg/dL 8.0* 8.3 8.8 Other Diagnoses: Patient Active Problem List Diagnosis Age-related osteoporosis with current pathological fracture, right femur, subsequent encounter for fracture with routine healing Difficulty in walking, not elsewhere classified Essential tremor Fall on same level from slipping, tripping and stumbling with subsequent striking against other object, subsequent encounter Hammertoe of right foot Hypertension Peripheral vascular disease (HCC) Hypo-osmolality and hyponatremia Hyponatremia Lymphedema Muscle weakness (generalized) Other hyperlipidemia Other seizures ([facility] ([facility]) Overactive bladder Spondylosis without myelopathy or radiculopathy, cervical region Spondylosis, unspecified Tremor, unspecified Unspecified glaucoma Ventricular premature depolarization Bilateral sacral insufficiency fracture, initial encounter T1 vertebral fracture ([facility]) Hypokalemia Closed fracture of sacrum, unspecified portion of sacrum, initial encounter ([facility] ([facility]) Assessment: 84 y.o. female w B sacral ala fx Plan:- Pain management and DVT prophylaxis per admitting service. We recommend Lovenox 40 mg qd or ASA 81 mg PO bid x 3 weeks. - Weight bearing status: WBAT to BLE - Dressings: None - We will manage the patient's pelvic fractures conservatively at this time. We have discussed the risks and benefits of operative versus non-operative care and they agree to proceed with non-operative management. We will follow the fractures with radiographs to assure there is no loss of reduction or further displacement that could necessitate discussion of operative management in the future. All of the Patient's questions were answered. - Pending ORS surgeries: None- Please Epic Message with questions before 5 pm. Call [phone] with emergencies or concerns after 5 pm. Dispo:- Ok to d/c from ORS standpoint once cleared medically and by PT. - F/u with Dr. Sexton or Tejal Saavedra PA-C in 2 weeks after discharge. Please call [phone] to make an appointment. The [address] is [address] [place] [address]. - Please refer to the above note for ortho discharge instructions. AMINA Morataya-12/14/2024 9:06 AM * Britni Rapp - 12/13/2024 3:10 PM CDT attempted to see the patient but the patient was sleeping. Radiology Specialist Services will remain available for support. For immediate attention, please contact on-call [phone] ([employer]ault) or [phone] (pager). Chaplain Britni Thompsonlaincy Main Office: [phone] On-call Databraid-link: [phone] On-call Pager: [phone] * Bahman Leiva PT - 12/13/2024 1:30 PM CDT Treatment Session Note Patient Name: Neeta Richard Today's Date: 12/13/2024 Preferred Language: Canadian Assessment & Plan Assessment: PT Assessment: PT will continue to follow and progress as tolerated. Prognosis: Fair Evaluation/Treatment Tolerance: Patient tolerated treatment well Strengths: Support of extended family/friends Plan: Treatment Plan/Goals Established with Patient/Caregiver: Yes Treatment/Interventions: Functional activities, Therapeutic exercises, Gait training PT Plan: Skilled PT PT Frequency: 3-4 times per week until discharge Subjective She agreed to visit, states she is going home today. Precautions: UE Weight Bearing Status: FWB LE Weight Bearing Status: WBAT Medical Precautions: fall, standard Post-Surgical Precautions: Bilateral sacral honorio fractures Pain: None reported Objective General Visit Information: Activity Tolerance: Endurance: Tolerates 10 - 20 min exercise with multiple rests Sitting Balance: Supports self independently with both upper extremities TreatmentTherapeutic activity: Therapeutic Activity Therapeutic Activity Time Entry: 25 Therapeutic Activity 1: Bed mobility Therapeutic Activity 2: Transfer Therapeutic Activity 3: Seated activities Therapeutic Activity 4: Gait w/ RW Therapeutic Activity 5: At end of session,patient in chair, CB in reach , RN notified Bed Mobility: Bed Mobility 1:Level of Assistance 1: Supervision/touching assistance Bed Mobility To/From: Roll lying on back to right Assistive Devices And Adaptive Equipments: Bed rail Bed Mobility 2:Level of Assistance 2: Supervision/touching assistance Bed Mobility To/From: Supine to sit on EOB Bed Mobility 3:Level of Assistance 3: Supervision/touching assistance Bed Mobility To/From: Sitting EOB to supine Transfers: Transfers 1: Level of Assistance 1: Partial/Mod assistance Transfer To/From: [id number] Assistive Devices And Adaptive Equipments: Walker, front-wheeled Transfers 2:Level of Assistance 2: Partial/Mod assistance Transfer To/From: Toilet Assistive Devices And Adaptive Equipments: Walker, front-wheeled Gait training: Gait Training Activity 1: Distance (enter in feet): 70 feet Gait Training Activity 1: Indoor surface Assistive Devices And Adaptive Equipments: Walker, front-wheeled Level of Assistance 1: Supervision/touching assistance Gait Training Activity 1 Comment: 3 point gait AM-PAC Basic Mobility:AM-PAC Basic Mobility Inpatient Turning in bed without bedrails: A Little Lying on back to sitting on edge of flat bed: A Little Bed to chair: A Little Standing up from chair: A Little Walk in room: A Little Climbing 3-5 stairs: A Lot Mobility Inpatient Raw Score: 17 -HLM Goal: 5 Mobility: Highest Level of Mobility Performed (JH-HLM)-HLM Goal: 5 Modified [place] Patient Education: Education Documentation No documentation found. Education Comments No comments found. Goals:Encounter Goals Encounter Goals (Active) Patient will be mod I in rolling and supine to sit transition and the reverse Start: 12/11/24 Expected End: 12/18/24 Patient will be SPV level in RW ambulation up to 150 feet Start: 12/11/24 Expected End: 12/18/24 Patient will be mod I in transfers using RW Start: 12/11/24 Expected End: 12/18/24 Patient will be mod I in WC mobility for distances greater than 150 feet Start: 12/11/24 Expected End: 12/18/24 Treatment Note: If this is the last documented treatment, then it will signify discharge from acute care prior to discharge from the therapy service and will serve as the discharge summary. Bahman Leiva PT * Sherin Castillo MD - 12/13/2024 12:19 PM CDT Subjective No acute overnight events reported. Objective Last Recorded Vitals Blood pressure 124/83, pulse 77, temperature 36.8 ?C (98.2 ?F), resp. rate 16, height 1.575 m (5' 2"), SpO2 97%. Physical Exam: General Awake alert Heart RRR Lungs CTABL Abd NT ND Neuro AAOX 3 MSK LE lymphemdema present Current Active Medications acetaminophen, 1,000 mg, Oral, q8h aspirin EC, 81 mg, Oral, q24h atorvastatin, 40 mg, Oral, Nightly celecoxib, 100 mg, Oral, BID cetirizine, 5 mg, Oral, Daily enoxaparin, 30 mg, Subcutaneous, q12h WILLOW gabapentin, 100 mg, Oral, Nightly lidocaine, 1 patch, Apply externally, Daily oxybutynin, 10 mg, Oral, BID polyethylene glycol (PEG) 3350, 17 g, Oral, Daily primidone, 250 mg, Oral, BID propranolol, 20 mg, Oral, TID sennosides, 2 tablet, Oral, Nightly sodium chloride, 10 mL, Intravenous, q12h WILLOW topiramate, 100 mg, Oral, Daily topiramate, 200 mg, Oral, q PM urea, 15 g, Oral, BID PRN medications: dextrose, dextrose, glucagon, lidocaine, methocarbamol, naloxone, ondansetron, oxyCODONE, oxyCODONE, [COMPLETED] Insert peripheral IV AND [COMPLETED] Saline lock IV AND sodium chloride, sodium chloride Lab ResultsResults from last 7 days Lab Units 12/12/24 0632 12/11/24 0338 WBC 10*3/uL 10.06 9.82 HEMOGLOBIN g/dL 13.0 14.5 HEMATOCRIT % 37.6 41.8 PLATELETS 10*3/uL 248 220 Results from last 7 daysLab Units 12/13/24 0544 12/12/24 0632 12/11/24 0338 SODIUM mEq/L 131* 131* 133* POTASSIUM mEq/L 4.0 4.0 2.9* CHLORIDE mEq/L 98 97* 102 CO2 mEq/L 22.0 22.0 22.3 BUN mg/dL 11 9 7* CREATININE mg/dL 0.58 0.63 0.58 GLUCOSE mg/dL 116* 100* 117* CALCIUM mg/dL 8.0* 8.3 8.8 [id number] female with a past medical history of hypertension, hyperlipidemia, chronic lymphedema, tremors, presenting to the emergency department as a transfer from an outside hospital for concerns of bilateral sacral honorio fractures. Patient sustained a fall while walking with a rolling walker and transition into her wheelchair and landed on her knee. Workup showed insufficiency fracture of sacrum as well as T1 vertebral fracture. Her fractures are managed conservatively. She is otherwise hemodynamically stable. She has mild hyponatremia. Assessment & Plan Bilateral sacral insufficiency fracture, initial encounter Closed fracture of sacrum, unspecified portion of sacrum, initial encounter ([facility]) Non op trial PT OT Pain control T1 vertebral fracture ([facility]) Subacute and acute fracture Non op management Hyponatremia Mild stable Fluid restriction, trial of Maria Will trend If she is discharged, recommend getting her sodium checked in 1 week by her PCP Hypokalemia Repleted Overactive bladder On oxybutynin Peripheral vascular disease (HCC) Continue aspirin and statin Lymphedema Continue with compression compression stockings Tremor, unspecified Continue primidone, propranolol and Topamax Age-related osteoporosis with current pathological fracture, right femur, subsequent encounter for fracture with routine healing Patient will need outpatient bone clinic follow-up Difficulty in walking, not elsewhere classified Uses walker and wheelchair VTE prophylaxis: enoxaparin (Lovenox) syringe 30 mg [[id number]] Disposition: Patient is medically optimized to be discharged home. SNF vs Home health * Luisa Torrez RN - 12/13/2024 11:00 AM CDT 12/13/24 1100 Discharge Planning Discharge Planning Comments Met with the pt to discuss discharge plan. She reports that she has a CG from 9-2 daily, and her dtr is there from 6 to midnight, daily. She is able to go home with HH. She is able to ambulate 80 feet before resting, with 250 feet in one session, and feels that she is doing well enough to go home. Her dtr has been out of town, but will be home at 1900, this evening. Dr. Castillo updated. LUISA TORREZ, RN [phone] * Cristian Chandler RN - 2024 4:54 PM CDT Lolita Zayas reports not having a SNF or IPR. The patient reports bein open to going to [facility] and [facility]. Referrals are placed via [facility]. * Sherin Castillo MD - 2024 2:45 PM CDT Subjective Patient is playing video game on her phone. Denies any pain Objective Last Recorded Vitals Blood pressure 133/85, pulse 74, temperature 36.8 ?C (98.2 ?F), resp. rate 18, height 1.575 m (5' 2"), SpO2 96%. Physical Exam: General Awake alert Heart RRR Lungs CTABL Abd NT ND Neuro AAOX 3 MSK LE lymphemdema present Current Active Medications acetaminophen, 1,000 mg, Oral, q8h aspirin EC, 81 mg, Oral, q24h atorvastatin, 40 mg, Oral, Nightly celecoxib, 100 mg, Oral, BID cetirizine, 5 mg, Oral, Daily enoxaparin, 30 mg, Subcutaneous, q12h WILLOW gabapentin, 100 mg, Oral, Nightly lidocaine, 1 patch, Apply externally, Daily oxybutynin, 10 mg, Oral, BID polyethylene glycol (PEG) 3350, 17 g, Oral, Daily primidone, 250 mg, Oral, BID propranolol, 20 mg, Oral, TID sennosides, 2 tablet, Oral, Nightly sodium chloride, 10 mL, Intravenous, q12h WILLOW topiramate, 100 mg, Oral, Daily topiramate, 200 mg, Oral, q PM PRN medications: dextrose, dextrose, glucagon, lidocaine, methocarbamol, naloxone, ondansetron, oxyCODONE, oxyCODONE, [COMPLETED] Insert peripheral IV AND [COMPLETED] Saline lock IV AND sodium chloride, sodium chloride Lab ResultsResults from last 7 days Lab Units 12/12/24 0632 12/11/24 0338 WBC 10*3/uL 10.06 9.82 HEMOGLOBIN g/dL 13.0 14.5 HEMATOCRIT % 37.6 41.8 PLATELETS 10*3/uL 248 220 Results from last 7 daysLab Units 12/12/24 0632 12/11/24 0338 SODIUM mEq/L 131* 133* POTASSIUM mEq/L 4.0 2.9* CHLORIDE mEq/L 97* 102 CO2 mEq/L 22.0 22.3 BUN mg/dL 9 7* CREATININE mg/dL 0.63 0.58 GLUCOSE mg/dL 100* 117* CALCIUM mg/dL 8.3 8.8 [id number] female with a past medical history of hypertension, hyperlipidemia, chronic lymphedema, tremors, presenting to the emergency department as a transfer from an outside hospital for concerns of bilateral sacral honorio fractures. Patient sustained a fall while walking with a rolling walker and transition into her wheelchair and landed on her knee. Assessment & Plan Bilateral sacral insufficiency fracture, initial encounter Non op trial PT OT Pain control T1 vertebral fracture (CMS/HCC) (HCC) Subacute and acute fracture Non op management Hyponatremia Mild hyponatremia Observed that she has been drinking a lot of water Water restriction with 1 L of fluid If patient does not get better by tomorrow we will expand the workup Hypokalemia Repleted Overactive bladder On oxybutynin Peripheral vascular disease (HCC) Continue aspirin and statin Lymphedema Continue with compression compression stockings Tremor, unspecified Continue primidone, propranolol and Topamax Age-related osteoporosis with current pathological fracture, right femur, subsequent encounter for fracture with routine healing Patient will need continued outpatient bone clinic follow-up Difficulty in walking, not elsewhere classified Uses walker and wheelchair VTE prophylaxis: enoxaparin (Lovenox) syringe 30 mg [[id number]] Disposition: Likely SNF placement * Ludwig Ramos, OT - 2024 2:11 PM CDT Evaluation and Treatment Patient Name: Neeta Richard Today's Date: 2024 Preferred Language: Canadian Assessment & Plan Current Problem: 84-year-old female with a past medical history of hypertension, hyperlipidemia, chronic lymphedema, tremors, presenting to the emergency department as a transfer from an outside hospital for concerns of bilateral sacral honorio fractures. Patient sustained a fall while walking with a rolling walker and transition into her wheelchair and landed on her knee. [Taken from the pt's Internal Medicine progress notes by Niya Castillo MD dated ]. PLOF: Pt lives alone in a 1 story house with 1 step at the primary entrance. Pt receives daily help from a caregiver in the morning for about 3 hrs and from her daughter in the evening for about 6 hours until she goes to bed. Pt's caregiver helps her with bathing and bathing transfers. Pt reported having RW, a manual wheelchair, a walk-in shower with a step over, grab bars in the shower, a built in shower seat. Pt reported having a cementer and a shoe horn to help her do ADLs. Pt's daughter reported that pt usually does her grooming skills in standing at the bathroom sink. [Taken from the pt's OT evaluation interview and the pt's EMR] CLOF: Today was the pt's 84th birthday. Pt demonstrated being independent with eating, min A for bed mobility, SBA/CGA for sit to stands, mod A for sock management. Pt was able to take of her socks but unable to nemesio them. Pt's B UE(s) tested WFL for AROM/ coordination and tested at 4+/5 overall for strength. Pt is below her baseline of performance for ADLs and functional mobility. Pt will benefit from OT services while in the acute care setting. Pt will benefit continued OT services in the post acute care setting prior to return home. OT to continue to follow. Assessment: OT Assessment Results: Impaired ADL status, Impaired upper extremity strength, Impaired functional mobility, Impaired right upper extremity, Impaired left upper extremity Prognosis: Good Evaluation/Treatment Tolerance: Patient tolerated treatment well Strengths: Support of extended family/friends, Premorbid level of function, Living arrangement secure, Housing layout, Ability to acquire knowledge Medical Staff Made Aware: Yes Medical Staff Made Aware Details: Call light in reach, Nurse informed, Family/visitor at bedside, All lines/leads intact Plan: Treatment Plan/Goals Established with Patient/Caregiver: Yes Treatment Interventions: ADL retraining, Endurance training, Functional transfer training, UE strengthening/ROM OT Planned Treatments: Activities of Daily Living, Balance training, Caregiver training, Equipment training, Mobility training, Pain management, Patient education, Therapeutic activities, Therapeutic exercises OT Plan: Skilled OT OT Frequency: 3-4 times per week until discharge OT Duration: Discharge Subjective Pt stated that she is open to going to an inpatient rehab facility in [place]. Pt reported that her caregiver assists her with bath transfers and washing her "bottom". Pain: Pt reported having 0/10 pain a rest. Pt stated that the pt usually starts when she mobilizes. Objective General Visit Information: Missed Treatment Reason: Other (Comment) (Eating lunch) Location: Bedside, Common room Additional Individuals Present: Yes (Pt's granddaughter and great grandbaby (3 months old)) Others Present: Bashir OT tech Subjective: Pt stated that her caregiver helps her with bathing Precautions: UE Weight Bearing Status: FWB LE Weight Bearing Status: WBAT Medical Precautions: fall, standard Post-Surgical Precautions: Bilateral sacral honorio fractures Cognition: Overall Cognitive Status: Within Functional Limits Behavior/Cognition: Alert, Cooperative Home Living: Type of Home: House Admitted From: Other (Comment) (Outside hospital) Lives With: Alone Home Adaptive Equipment: Rolling walker, Wheelchair-manual Home Living Comments: Pt has a caregiver. Comes daily, 9am-12:30 pm. Dtr comes in the evening at 6 pm -12 am to assist with ADLs, such as applying eye drops and cooking dinner. Home Access: Stairs to enter without rails (1 step) Entrance Stairs-Rails: None Entrance Stairs-Number of Steps: 1 step Bathroom Shower/Tub: Walk-in shower (with step over) Bathroom Equipment: Grab bars in shower, Built-in shower seat Prior Function: Level of [place]: Ambulated with assistive device (comment) (rollator) Receives Help From: Family, brand attendant ADL Assistance: Needs assistance Homemaking Assistance: Needs assistance OT General Assessments: Activity Tolerance Activity Tolerance Endurance: Tolerates 10 - 20 min exercise with multiple rests Sitting Balance: Sits without support for more than 30 sec Hand Function Hand Function Gross Grasp: Functional Coordination: Functional Extremity Assessments: Right Upper Extremity RUE Assessment RUE Assessment: Exceptions to WFL (overall MMT a 4+/5) Left Upper Extremity LUE Assessment LUE Assessment: Exceptions to WFL (Overall MMT at 4+/5) Upper Extremity Tone Upper Extremity Tone Left Upper Extremity: Normal Right Upper Extremity: Normal Treatment: Self-Care: Self Care/Home Management (ADLs) Time Entry: 17 Eating Assistance: Independent (seen eating her lunch w/ independence on OT's first attempt to evaluate the pt) Bed Mobility: Bed Mobility Bed Mobility: Yes Bed Mobility 3 Level of Assistance 3: Partial/Mod assistance (min A) Bed Mobility Comments 3: min A Bed Mobility To/From: Supine to sit on EOB Assistive Devices And Adaptive Equipments: Head of bed elevated, Bed rail Bed Mobility 4 Level of Assistance 4: Partial/Mod assistance (min A) Bed Mobility Comments 4: min A Bed Mobility To/From: Sitting EOB to supine Assistive Devices And Adaptive Equipments: Bed rail, Head of bed elevated Transfers: Transfers Transfer: Yes Transfers 3 Level of Assistance 3: Supervision/touching assistance Transfer To/From: [id number] Assistive Devices And Adaptive Equipments: Walker, front-wheeled AM-PAC Daily Activity: Putting on and taking off regular lower body clothing: A Lot (able to take a socks off but unable to nemesio) Bathing (including washing, rinsing, drying): A Lot Toileting, which includes using toilet, bedpan or urinal: A Lot (on purewick and wearing a diaper) Putting on and taking off regular upper body clothing: A Little Taking care of personal grooming such as brushing teeth: A Little Eating Meals: None AM-PAC Daily Activity Raw Score: 16 Mobility Highest Level of Mobility Performed (JH-HLM): Static standing (1 or more minutes) Patient Education: Education Documentation Occupational Therapy Plan of Care, taught by Ludwig Ramos OT at 2024 2:11 PM. Learner: Family, Patient Readiness: Eager Method: Explanation, Demonstration Response: Verbalizes Understanding Education Comments No comments found. Goals: Encounter Goals Encounter Goals (Active) LTG - Patient will complete upper body dressing with setup/supervision (Progressing) Start: 12/12/24 Expected End: 12/24/24 LTG - Patient will complete daily grooming tasks in standing at sink level with modified independence using assistive devices as needed. Start: 12/12/24 Expected End: 12/24/24 LTG - Patient will perform room and/or community mobility with setup/ supervision using assistive devices prn. (Progressing) Start: 12/12/24 Expected End: 12/24/24 LTG - Patient will transfer to/ from toilet and/or bedside commode with modified independence. (Progressing) Start: 12/12/24 Expected End: 12/24/24 STG - Transfer from bed to chair with setup/ supervision using assistive device as needed. (Progressing) Start: 12/12/24 Expected End: 12/17/24 Treatment Note: If this is the last documented treatment, then it will signify discharge from acute care prior to discharge from the therapy service and will serve as the discharge summary. Ludwig Ramos OTCosigned by Inez Loya MD at 2024 11:21 PM CDT * Ludwig Ramos OT - 2024 1:02 PM CDT OT Encounter Note Patient Name: Neeta Richard Today's Date: 2024 Missed Treatment Time and Reason Missed Treatment Reason: Other (Comment) (Eating lunch) Additional Individuals Present: Yes (Pt's granddaughter and great grandbaby (3 months old)) OT attempted to see pt for OT evaluation. Pt was still eating her lunch at bed level. Family present in room. OT said he would return when the pt had finished. Pt verbalized approval. Ludwig Ramos OT * Jesse Eduardo, PT - 2024 9:00 AM CDT Physical Therapy Treatment Session Note Patient Name: Neeta Richard Today's Date: 2024 Preferred Language: Canadian Assessment & Plan Assessment: PT Assessment: Improved gait and activity tolerance. Gait pattern fluctuates between bouts. Stooped posture. Prognosis: Good Barriers to Discharge: Other (comment) (increased burden of care) Evaluation/Treatment Tolerance: Patient tolerated treatment well Plan: Treatment Plan/Goals Established with Patient/Caregiver: Yes Treatment/Interventions: Functional activities, Gait training, Patient education, Transfer training PT Plan: Skilled PT PT Frequency: 5-7 times per week until discharge Equipment Recommended: Other (Pt has DME at home) PT Recommended Transfer Status: Stand by assist Subjective Current Problem: Decreased activity and gait tolerance. Fall risk. Precautions: UE Weight Bearing Status: FWB LE Weight Bearing Status: WBAT Medical Precautions: fall, standard Pain: No pain complaints this session. Objective General Visit Information: Cognition Overall Cognitive Status: Within Functional Limits Behavior/Cognition: Alert, Cooperative, Pleasant mood Treatment Bed Mobility: Bed Mobility 1: Level of Assistance 1: Supervision/touching assistance Bed Mobility To/From: Supine to sit on EOB Assistive Devices And Adaptive Equipments: Bed rail Bed Mobility 2: Level of Assistance 2: Supervision/touching assistance Bed Mobility To/From: Sitting EOB to supine Assistive Devices And Adaptive Equipments: Bed rail Transfers: Transfers 1: Level of Assistance 1: Supervision/touching assistance Transfer To/From: [id number]/[id number]-Gcv Assistive Devices And Adaptive Equipments: Walker, front-wheeled Gait training: Gait Training Activity 1: Distance (enter in feet): 70 feet Gait Training Activity 1: Indoor surface Assistive Devices And Adaptive Equipments: Walker, front-wheeled Level of Assistance 1: Supervision/touching assistance Gait Training Activity 1 Comment: 3 point gait Gait Training Activity 2:Distance (enter in feet): 50 feet Gait Training Activity 2: Indoor surface Assistive Devices And Adaptive Equipments: Walker, front-wheeled Level of Assistance 2: Supervision/touching assistance Gait Training Activity 2 Comment: reciprocal continuous gait Gait Training Activity 3:Distance (enter in feet): 50 feet Gait Training Activity 3: Indoor surface Assistive Devices And Adaptive Equipments: Walker, front-wheeled Level of Assistance 3: Supervision/touching assistance Gait Training Activity 3 Comment: 3 point gait Gait Training Activity 4:Distance (enter in feet): 80 feet Gait Training Activity 4: Indoor surface Assistive Devices And Adaptive Equipments: Walker, front-wheeled Level of Assistance 4: Supervision/touching assistance Gait Training Activity 4 Comment: reciprocal continuous gait AM-PAC Basic Mobility:AM-PAC Basic Mobility Inpatient Turning in bed without bedrails: A Little Lying on back to sitting on edge of flat bed: A Little Bed to chair: A Little Standing up from chair: A Little Walk in room: A Little Climbing 3-5 stairs: A Lot Mobility Inpatient Raw Score: 17 JH-HLM Goal: 5 Mobility: Highest Level of Mobility Performed (JH-HLM)JH-HLM Goal: 5 Highest Level of Mobility Performed (JH-HLM): Walked 25 feet or more (i.e. walked outside of room) Goals:Encounter Goals Encounter Goals (Active) Patient will be mod I in rolling and supine to sit transition and the reverse Start: 12/11/24 Expected End: 12/18/24 Patient will be SPV level in RW ambulation up to 150 feet Start: 12/11/24 Expected End: 12/18/24 Patient will be mod I in transfers using RW Start: 12/11/24 Expected End: 12/18/24 Patient will be mod I in WC mobility for distances greater than 150 feet Start: 12/11/24 Expected End: 12/18/24 Treatment Note: If this is the last documented treatment, then it will signify discharge from acute care prior to discharge from the therapy service and will serve as the discharge summary. Jesse Eduardo PT [id number] 13:57:05Upcoming Encounters Scheduled Orders Name Type Priority Associated Diagnoses Orde r Schedule POCT Glucose Point of Care Testing - Docked Device Routine Every 15 minutes as needed until discontinued starting 12/11/2024 Scheduled Referrals Name Type Priority Associated Diagnoses Orde r Schedule Ambulatory referral to Home Health Outpatient Referral Routine Closed fracture of sacrum, unspecified portion of sacrum, initial encounter ([facility]) ([facility]) Expected: 12/14/2024 (Approximate), Expires: 12/14/2025 Health Maintenance Due Date Last Done Comments Lipid Panel 1940 Medicare Annual Wellness (AWV) 1940 DTaP/Tdap/Td Vaccines (1 - Tdap) 1957 Pneumococcal Vaccine: 50+ Ye ars (1 of 1 - PCV) 1988 Respiratory Syncytial Virus (RSV) Adult Series (1 - 1-dose 75+ series) 2013 Zoster Vaccines (2 of 2) 04/07/2024 02/11/2024 Influenza Vaccine (#1) 2025 02/11/2024 HIB Vaccines Aged Out No longer eligi ble based on patient's age to complete this topic HPV Vaccines Aged Out No longer eligi ble based on patient's age to complete this topic Hepatitis A Vaccines Aged Out No long er eligible based on patient's age to complete this topic Hepatitis B Vaccines Aged Out No long er eligible based on patient's age to complete this topic IPV Vaccines Aged Out No longer eligi ble based on patient's age to complete this topic Meningococcal Vaccine Aged Out No reno roxy eligible based on patient's age to complete this topic Rotavirus Vaccines Aged Out No longer eligible based on patient's age to complete this topic [facility] [id number] 13:57:05 Diagnosis Bilateral sacral insufficien cy fracture, initial encounter - Primary Closed fracture of sacrum, u nspecified portion of sacrum, initial encounter ([facility]/HCC) (HCC) Posttraumatic pain T1 vertebral fracture (CMS/H CC) ([facility]) Hypokalemia Hypopotassemia Peripheral vascular disease ([facility]) Unspecified peripheral vascular disease Lymphedema Other noninfectious lymphedema Tremor, unspecified Age-related osteoporosis wit h current pathological fracture, right femur, subsequent encounter for fracture with routine healing Difficulty in walking, not e lsewhere classified Overactive bladder Hypertonicity of bladder Hyponatremia Hyposmolality and/or hyponatremia Closed fracture of sacrum, u nspecified portion of sacrum, initial encounter ([facility]) ([facility]) [facility] [id number] 13:57:05 [facility] [id number] 12:15:00 Patient AxOx4, VS stable, IV removed. Discharge instructions and education given. Patient going home with HH via ambulance, daughter at bedside. Belongings sent. [facility]Mem[facility] [id number] 11:37:48 The patient is Moderately Stable - Low risk of patient condition declining or worsening The patient's goals for the shift include pain control The clinical goals for the shift include pt/ot, stable vitlals Over the shift, the patient did not make progress toward the following goals. Barriers to progression include none. Recommendations to address these barriers include none. Problem: Pain - Adult Goal: Verbalizes/displays adequate comfort level or baseline comfort level Outcome: Adequate for Discharge Problem: Safety - Adult Goal: Free from fall injury Outcome: Adequate for Discharge Problem: Discharge Planning Goal: Discharge to home or other facility with appropriate resources Outcome: Adequate for Discharge Problem: Chronic Conditions and Co-morbidities Goal: Patient's chronic conditions and co-morbidity symptoms are monitored and maintained or improved Outcome: Adequate for Discharge [facility] [id number] 16:09:00 The patient is Moderately Stable - Low risk of patient condition declining or worsening The patient's goals for the shift include pain control The clinical goals for the shift include pain control Over the shift, the patient did not make progress toward the following goals. Barriers to progression include pain. Recommendations to address these barriers include timely pain management and physical/occupational therapy. Problem: Pain - Adult Goal: Verbalizes/displays adequate comfort level or baseline comfort level Outcome: Ongoing Problem: Safety - Adult Goal: Free from fall injury Outcome: Ongoing Problem: Discharge Planning Goal: Discharge to home or other facility with appropriate resources Outcome: Ongoing Problem: Chronic Conditions and Co-morbidities Goal: Patient's chronic conditions and co-morbidity symptoms are monitored and maintained or improved Outcome: Ongoing T NursingMethod[facility] [id number] 10:23:53 Final Recommendation(s): Secondary Review Review Type: Initial Initial Recommendation: Inpatient Review Outcome: Inpatient appropriate Secondary Review Status: Physician advisor review complete Rationale for Recommendation(s): 84 yo woman with fall developed bilateral sacral all fracture an t1 vertebral fracture. Non op mgmt but significant decline in functional status. Hyponatremia worsening on Hd 2 after fluid restriction. IP AMA T [facility]icianL[facility] Hospitalal [id number] 03:04:29 The patient is Moderately Stable - Low risk of patient condition declining or worsening The patient's goals for the shift include pain control The clinical goals for the shift include pain control Over the shift, the patient did not make progress toward the following goals. Barriers to progression include none. Recommendations to address these barriers include none. T [facility] Hospitalal [id number] 13:12:40 Pain - Adult Add All Verbalizes/displays adequate comfort level or baseline comfort level Add Today at 1312 - Ongoing by Gisella Benoit RN Add Safety - Adult Add All Free from fall injury Add Today at 1312 - Ongoing by Gisella Benoit RN Add Discharge Planning Add All Discharge to home or other facility with appropriate resources Add Today at 1312 - Ongoing by Gisella Benoit RN Add Chronic Conditions and Co-morbidities Add All Patient's chronic conditions and co-morbidity symptoms are monitored and maintained or improved Add Today at 1312 - Ongoing by Gisella Benoit RN [facility]2025-07-26 20:16:39 The patient is Moderately Stable - Low risk of patient condition declining or worsening The patient's goals for the shift include pain mgmt,PT/OT The clinical goals for the shift include pain mgmt,PT/OT [facility]2025-07-26 09:27:24 The patient is Moderately Unstable - Medium risk of patient condition declining or worsening The patient's goals for the shift include safety and comfort The clinical goals for the shift include safety and comfort Over the shift, the patient did not make progress toward the following goals. Barriers to progression include decrease mobility. Recommendations to address these barriers include assessing patient needs,implementing fall precautions,Hourly rounding T [facility] [id number] 03:02:41 [place] [id number] 03:02:41Upcoming Encounters Health Maintenance Due Date Last Done Comments Lipid Panel 1940 Medicare Annual Wellness (AWV) 1940 DTaP/Tdap/Td Vaccines (1 - Tdap) 1957 Pneumococcal Vaccine: 50+ Ye ars (1 of 1 - PCV) 1988 Respiratory Syncytial Virus (RSV) Adult Series (1 - 1-dose 75+ series) 2013 Zoster Vaccines (2 of 2) 04/07/2024 02/11/2024 Influenza Vaccine (#1) 2025 02/11/2024 HIB Vaccines Aged Out No longer eligi ble based on patient's age to complete this topic HPV Vaccines Aged Out No longer eligi ble based on patient's age to complete this topic Hepatitis A Vaccines Aged Out No long er eligible based on patient's age to complete this topic Hepatitis B Vaccines Aged Out No long er eligible based on patient's age to complete this topic IPV Vaccines Aged Out No longer eligi ble based on patient's age to complete this topic Meningococcal Vaccine Aged Out No reno roxy eligible based on patient's age to complete this topic Rotavirus Vaccines Aged Out No longer eligible based on patient's age to complete this topic [facility] Iddbhcy9174-76-39 03:02:41 [facility] 13:12:53* [facility]Uqsrxic8148-78-11 13:12:53 [facility]Rafsxok9388-79-81 13:12:53* Eda Perkins MD - 11/25/2024 10:15 AM CDT History of Present Illness Tremor The patient is an 83-year-old female presenting for follow-up of worsening tremors and recent fall. She is accompanied by her caregiver, who provides additional history. The patient reports a recent fall at home, which occurred when she was putting on a jacket and lost her balance, causing her to fall backward and hit her back on the corner of a cabinet. Her daughter was present and assisted her with the help of her son-in-law. She sustained a slight bruise on her back but had no difficulty walking afterward. She attributes the fall to not using her walker at the time and believes that using it consistently would help prevent future falls. She has a history of tremors, which have reportedly worsened. During a recent stay at a rehabilitation center, she was given only one pill for her tremors instead of her usual three, leading to a significant increase in shaking by the fourth day. Her caregiver notes that her tremors have continued to worsen since returning home, affecting her ability to perform daily tasks such as drinking tea and signing her name. She has had to use both hands to hold a cup and struggles with writing due to the tremors. She is currently taking topiramate, propranolol, and primidone for tremor management. She also engages in arm exercises regularly. Allergies as of 11/25/2024 - Reviewed 5Allergen Reaction Noted Sulfa antibiotics Anaphylaxis, Hives, Nausea And Vomiting, and Unknown 04/20/2018 has a current medication list which includes the following prescription(s): prevagen, aspirin ec, atorvastatin, levocetirizine, misc natural products, multiple vitamins-minerals, oxybutynin chloride, primidone, propranolol, azo bladder control/go-less, senna-docusate, and topiramate. Skin: (+) back ecchymosisNeurological: (+) tremor, (+) gait instability Vitals:11/25/24 1022 BP: (!) 147/105 Pulse: 65 Resp: 16 Temp: 36.9 ?C (98.4 ?F) SpO2: 97% Neurological Exam Mental Status Awake and alert. Speech is normal. Cranial NervesCN II: Visual acuity is normal. CN III, IV, : Extraocular movements intact bilaterally. Pupils equal round and reactive to light bilaterally. CN VII: Full and symmetric facial movement. CN IX, X: Palate elevates symmetrically CN XI: Shoulder shrug strength is normal. CN XII: Tongue midline without atrophy or fasciculations. MotorThe following abnormal movements were seen: Strength is 5/5 throughout all four extremities. Moderate postural and kinetic tremor. SensoryTemperature abnormality: Decreased distally. Vibration abnormality: Decreased distally. ReflexesDeep tendon reflexes: Suppressed but symmetric. Gait Ambulates with a rolling walker. Mental Status: Awake, alert, and oriented to person, place, and time. Speech is normal. Language is fluent with no aphasia. Cranial Nerves: CN III, IV, : Extraocular movements intact bilaterally. No nystagmus. CN II-XII are otherwise intact. Motor: Normal muscle bulk throughout. Normal muscle tone. Kinetic tremor observed, with increased severity noted. There is mild bradykinesia. There is no apparent weakness or pronator drift. Coordination: Right: Lljivx-wn-umru normal. Rapid alternating movement is normal. Left: Fpkyrb-hr-bqiv normal. Rapid alternating movement is normal. Gait: Ambulates with a rolling walker No results found for this or any previous visit. No MRI head results found for the past 12 months Your note content is not currently available. Please go to the Ambienceactivity and push your notes to view them here. Assessment & Plan# Essential tremor (G25.0) - Tremor severity has increased, affecting daily activities such as drinking and signing her name. - Currently on maximum doses of topiramate, propranolol, and primidone. - Discussed the option of ultrasound thalamotomy; risks include potential worsening of balance issues. Patient and family advised against the procedure due to age and existing balance concerns. - Continue current medication regimen. # Difficulty in walking, not elsewhere classified (R26.2)- Balance issues noted, contributing to recent fall. - Advised continued use of walker to prevent further falls. # Fall on same level from slipping, tripping and stumbling with subsequent striking against other object, subsequent encounter (W01.198D) - Recent fall resulted in a minor bruise on the back; no significant injuries reported. - Emphasized the importance of using assistive devices to prevent future falls. [facility]Gxvnghh9253-30-58 13:12:53Upcoming Encounters Health Maintenance Due Date Last Done Comments Lipid Panel 1940 Medicare Annual Wellness (AWV) 1938 DTaP/Tdap/Td Vaccines (1 - Tdap) 1957 Pneumococcal Vaccine: 50+ Ye ars (1 of 1 - PCV) 1988 Respiratory Syncytial Virus (RSV) Adult Series (1 - 1-dose 75+ series) 2013 Zoster Vaccines (2 of 2) 04/07/2024 02/11/2024 Influenza Vaccine (#1) 2025 02/11/2024 HIB Vaccines Aged Out No longer eligi ble based on patient's age to complete this topic HPV Vaccines Aged Out No longer eligi ble based on patient's age to complete this topic Hepatitis A Vaccines Aged Out No long er eligible based on patient's age to complete this topic Hepatitis B Vaccines Aged Out No long er eligible based on patient's age to complete this topic IPV Vaccines Aged Out No longer eligi ble based on patient's age to complete this topic Meningococcal Vaccine Aged Out No reno roxy eligible based on patient's age to complete this topic Rotavirus Vaccines Aged Out No longer eligible based on patient's age to complete this topic [facility]hamVolteoz4454-17-91 13:12:53 Diagnosis Essential tremor - Primary Difficulty in walking, not e lsewhere classified Fall on same level from slip ping, tripping and stumbling with subsequent striking against other object, subsequent encounter [facility]hamXxcfhhw7338-44-91 13:12:53 [facility]hamBzdgjuq6223-61-60 13:12:52* [facility]hamXmatjdl4980-59-77 13:12:52 [facility]Tzzvnfn7483-42-56 13:12:52* Eda Perkins MD - 11/25/2024 10:15 AM CDT History of Present Illness Tremor The patient is an 83-year-old female presenting for follow-up of worsening tremors and recent fall. She is accompanied by her caregiver, who provides additional history. The patient reports a recent fall at home, which occurred when she was putting on a jacket and lost her balance, causing her to fall backward and hit her back on the corner of a cabinet. Her daughter was present and assisted her with the help of her son-in-law. She sustained a slight bruise on her back but had no difficulty walking afterward. She attributes the fall to not using her walker at the time and believes that using it consistently would help prevent future falls. She has a history of tremors, which have reportedly worsened. During a recent stay at a rehabilitation center, she was given only one pill for her tremors instead of her usual three, leading to a significant increase in shaking by the fourth day. Her caregiver notes that her tremors have continued to worsen since returning home, affecting her ability to perform daily tasks such as drinking tea and signing her name. She has had to use both hands to hold a cup and struggles with writing due to the tremors. She is currently taking topiramate, propranolol, and primidone for tremor management. She also engages in arm exercises regularly. Allergies as of 11/25/2024 - Reviewed 5Allergen Reaction Noted Sulfa antibiotics Anaphylaxis, Hives, Nausea And Vomiting, and Unknown 04/20/2018 has a current medication list which includes the following prescription(s): prevagen, aspirin ec, atorvastatin, levocetirizine, misc natural products, multiple vitamins-minerals, oxybutynin chloride, primidone, propranolol, azo bladder control/go-less, senna-docusate, and topiramate. Skin: (+) back ecchymosisNeurological: (+) tremor, (+) gait instability Vitals:11/25/24 1022 BP: (!) 147/105 Pulse: 65 Resp: 16 Temp: 36.9 ?C (98.4 ?F) SpO2: 97% Neurological Exam Mental Status Awake and alert. Speech is normal. Cranial NervesCN II: Visual acuity is normal. CN III, IV, : Extraocular movements intact bilaterally. Pupils equal round and reactive to light bilaterally. CN VII: Full and symmetric facial movement. CN IX, X: Palate elevates symmetrically CN XI: Shoulder shrug strength is normal. CN XII: Tongue midline without atrophy or fasciculations. MotorThe following abnormal movements were seen: Strength is 5/5 throughout all four extremities. Moderate postural and kinetic tremor. SensoryTemperature abnormality: Decreased distally. Vibration abnormality: Decreased distally. ReflexesDeep tendon reflexes: Suppressed but symmetric. Gait Ambulates with a rolling walker. Mental Status: Awake, alert, and oriented to person, place, and time. Speech is normal. Language is fluent with no aphasia. Cranial Nerves: CN III, IV, : Extraocular movements intact bilaterally. No nystagmus. CN II-XII are otherwise intact. Motor: Normal muscle bulk throughout. Normal muscle tone. Kinetic tremor observed, with increased severity noted. There is mild bradykinesia. There is no apparent weakness or pronator drift. Coordination: Right: Ononhx-kd-yhkl normal. Rapid alternating movement is normal. Left: Qbdrcd-db-toub normal. Rapid alternating movement is normal. Gait: Ambulates with a rolling walker No results found for this or any previous visit. No MRI head results found for the past 12 months Your note content is not currently available. Please go to the Ambienceactivity and push your notes to view them here. Assessment & Plan# Essential tremor (G25.0) - Tremor severity has increased, affecting daily activities such as drinking and signing her name. - Currently on maximum doses of topiramate, propranolol, and primidone. - Discussed the option of ultrasound thalamotomy; risks include potential worsening of balance issues. Patient and family advised against the procedure due to age and existing balance concerns. - Continue current medication regimen. # Difficulty in walking, not elsewhere classified (R26.2)- Balance issues noted, contributing to recent fall. - Advised continued use of walker to prevent further falls. # Fall on same level from slipping, tripping and stumbling with subsequent striking against other object, subsequent encounter (W01.198D) - Recent fall resulted in a minor bruise on the back; no significant injuries reported. - Emphasized the importance of using assistive devices to prevent future falls. [facility]hamGgbwbej3200-07-15 13:12:52Upcoming Encounters Health Maintenance Due Date Last Done Comments Lipid Panel 1940 Medicare Annual Wellness (AWV) 1938 DTaP/Tdap/Td Vaccines (1 - Tdap) 1957 Pneumococcal Vaccine: 50+ Ye ars (1 of 1 - PCV) 1988 Respiratory Syncytial Virus (RSV) Adult Series (1 - 1-dose 75+ series) 2013 Zoster Vaccines (2 of 2) 04/07/2024 02/11/2024 Influenza Vaccine (#1) 2025 02/11/2024 HIB Vaccines Aged Out No longer eligi ble based on patient's age to complete this topic HPV Vaccines Aged Out No longer eligi ble based on patient's age to complete this topic Hepatitis A Vaccines Aged Out No long er eligible based on patient's age to complete this topic Hepatitis B Vaccines Aged Out No long er eligible based on patient's age to complete this topic IPV Vaccines Aged Out No longer eligi ble based on patient's age to complete this topic Meningococcal Vaccine Aged Out No reno roxy eligible based on patient's age to complete this topic Rotavirus Vaccines Aged Out No longer eligible based on patient's age to complete this topic [facility]hamZaepdbq3663-31-54 13:12:52 Diagnosis Essential tremor - Primary Difficulty in walking, not e lsewhere classified Fall on same level from slip ping, tripping and stumbling with subsequent striking against other object, subsequent encounter [facility]Zlweurj1848-86-77 13:12:52 [facility] HospitalQvqelrc0711-00-14 14:15:59* [facility] HospitalChenxhx8213-07-10 14:15:59 [facility]Vqfefxb7724-07-20 14:15:59Upcoming Encounters Health Maintenance Due Date Last Done Comments Lipid Panel 1940 Medicare Annual Wellness (AWV) 1938 DTaP/Tdap/Td Vaccines (1 - Tdap) 1957 Pneumococcal Vaccine: 50+ Ye ars (1 of 1 - PCV) 1988 Respiratory Syncytial Virus (RSV) Adult Series (1 - 1-dose 75+ series) 2013 Zoster Vaccines (2 of 2) 04/07/2024 02/11/2024 Influenza Vaccine Completed 02/11/2024 HIB Vaccines Aged Out No longer eligi ble based on patient's age to complete this topic HPV Vaccines Aged Out No longer eligi ble based on patient's age to complete this topic Hepatitis A Vaccines Aged Out No long er eligible based on patient's age to complete this topic Hepatitis B Vaccines Aged Out No long er eligible based on patient's age to complete this topic IPV Vaccines Aged Out No longer eligi ble based on patient's age to complete this topic Meningococcal Vaccine Aged Out No reno roxy eligible based on patient's age to complete this topic Rotavirus Vaccines Aged Out No longer eligible based on patient's age to complete this topic [facility] HospitalDquymbe8799-32-32 14:15:59 [place] [id number] 10:38:49 [facility] HospitalWgxmkng3795-75-25 10:38:49* [facility] HospitalIcjbryd9783-35-36 10:38:49 [place] [id number] 10:38:49* Eda Perkins MD - 06/02/2024 10:15 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 Broke leg wasn't getting all her medcation in Rehab and tremor was worse. No side effects, had labs 04/11. No new problems otherwise Allergies as of 06/02/2024 - Reviewed 06/02/2024 Allergen Reaction Noted Sulfa antibiotics Anaphylaxis, Hives, Nausea And Vomiting, and Unknown 04/20/2018 has a current medication list which includes the following prescription(s): prevagen, aspirin ec, atorvastatin, levocetirizine, misc natural products, multiple vitamins-minerals, oxybutynin, propranolol, azo bladder control/go-less, senna-docusate, primidone, and topiramate. Vitals:06/02/24 1015 BP: (!) 148/96 Pulse: 64 Resp: 16 Temp: 36.1 ?C (97 ?F) SpO2: 93% Neurological Exam Mental Status Awake and alert. Speech is normal. Cranial NervesCN II: Visual acuity is normal. CN III, IV, : Extraocular movements intact bilaterally. Pupils equal round and reactive to light bilaterally. CN VII: Full and symmetric facial movement. CN IX, X: Palate elevates symmetrically CN XI: Shoulder shrug strength is normal. CN XII: Tongue midline without atrophy or fasciculations. MotorStrength is 5/5 throughout all four extremities. Moderate to severe postural and kinetic tremor. SensoryTemperature abnormality: Decreased distally. Vibration abnormality: Decreased distally. ReflexesDeep tendon reflexes: Suppressed but symmetric. Gait Ambulates with a rolling walker. No results found for this or any previous visit. No MRI head results found for the past 12 months Assessment & PlanDiagnoses and all orders for this visit: Essential tremor Other orders - primidone (Mysoline) 250 MG tablet; Take 1 tablet by mouth in the morning and 1 tablet in the evening. - topiramate (Topamax) 100 MG tablet; TAKE 1 TABLET BY MOUTH EVERY MORNING AND 2 TABLETS BY MOUTH IN THE EVENING Continue present medications, request labs from primary care for review TABLE CUTTER [facility]hamMcveggh1200-38-37 10:38:49 [facility] BrenhamLwxlaxq0316-67-48 10:38:49 Diagnosis Essential tremor - Primary [facility]hamFaixmvu0189-21-57 10:38:49 [facility] BrenhamLuyhbjg4673-40-92 10:38:49* [facility] BrenhamUzoxnyd2151-32-13 10:38:49 [facility] BrenhamRsbhequ3659-46-96 10:38:49* Eda Perkins MD - 06/02/2024 10:15 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 Broke leg wasn't getting all her medcation in Rehab and tremor was worse. No side effects, had labs 04/11. No new problems otherwise Allergies as of 06/02/2024 - Reviewed 06/02/2024 Allergen Reaction Noted Sulfa antibiotics Anaphylaxis, Hives, Nausea And Vomiting, and Unknown 04/20/2018 has a current medication list which includes the following prescription(s): prevagen, aspirin ec, atorvastatin, levocetirizine, misc natural products, multiple vitamins-minerals, oxybutynin, propranolol, azo bladder control/go-less, senna-docusate, primidone, and topiramate. Vitals:06/02/24 1015 BP: (!) 148/96 Pulse: 64 Resp: 16 Temp: 36.1 ?C (97 ?F) SpO2: 93% Neurological Exam Mental Status Awake and alert. Speech is normal. Cranial NervesCN II: Visual acuity is normal. CN III, IV, : Extraocular movements intact bilaterally. Pupils equal round and reactive to light bilaterally. CN VII: Full and symmetric facial movement. CN IX, X: Palate elevates symmetrically CN XI: Shoulder shrug strength is normal. CN XII: Tongue midline without atrophy or fasciculations. MotorStrength is 5/5 throughout all four extremities. Moderate to severe postural and kinetic tremor. SensoryTemperature abnormality: Decreased distally. Vibration abnormality: Decreased distally. ReflexesDeep tendon reflexes: Suppressed but symmetric. Gait Ambulates with a rolling walker. No results found for this or any previous visit. No MRI head results found for the past 12 months Assessment & PlanDiagnoses and all orders for this visit: Essential tremor Other orders - primidone (Mysoline) 250 MG tablet; Take 1 tablet by mouth in the morning and 1 tablet in the evening. - topiramate (Topamax) 100 MG tablet; TAKE 1 TABLET BY MOUTH EVERY MORNING AND 2 TABLETS BY MOUTH IN THE EVENING Continue present medications, request labs from primary care for review TABLE CUTTER [facility] Kqsjaqy6787-59-97 10:38:49 [facility] BrenhamOyttqag4453-85-85 10:38:49 Diagnosis Essential tremor - Primary [facility] Stkazpb7217-24-38 09:56:45* [facility] Vgzisid3940-40-22 09:56:45 [facility] BrenhamLnoyyvl2726-65-92 09:56:45Upcoming Encounters Health Maintenance Due Date Last Done Comments Lipid Panel 1940 Medicare Annual Wellness (AWV) 1940 Annual Physical 1941 DTaP/Tdap/Td Vaccines (1 - Tdap) 1957 Respiratory Syncytial Virus (RSV) or >=60 (1 - 1-dose 60+ series) 1998 Pneumococcal Vaccine: 65+ Ye ars (1 of 1 - PCV) 12/13/2003 Zoster Vaccines (2 of 2) 04/07/2024 02/11/2024 Influenza Vaccine Completed 02/11/2024 HIB Vaccines Aged Out No longer eligi ble based on patient's age to complete this topic HPV Vaccines Aged Out No longer eligi ble based on patient's age to complete this topic Hepatitis A Vaccines Aged Out No long er eligible based on patient's age to complete this topic Hepatitis B Vaccines Aged Out No long er eligible based on patient's age to complete this topic IPV Vaccines Aged Out No longer eligi ble based on patient's age to complete this topic Meningococcal Vaccine Aged Out No reno roxy eligible based on patient's age to complete this topic Rotavirus Vaccines Aged Out No longer eligible based on patient's age to complete this topic [facility]Ntpwbqi4228-58-37 09:56:45 [facility] HospitalWewihpx0889-96-84 11:10:24* [facility] HospitalAeclfap3325-09-25 11:10:24 [facility] HospitalFguluhw2463-72-62 11:10:24* Eda Perkins MD - 12/03/2023 10:15 AM CDT Tremor The tremor affects the hands and head. The onset of the tremor was gradual. Current severity of tremor is rated at severe. The tremor occurs all day. Associated symptoms include change in handwriting. Took 20 min to get ear rings in Allergies as of 12/03/2023 - Reviewed 12/03/2023 Allergen Reaction Noted Sulfa antibiotics Anaphylaxis, Hives, Nausea And Vomiting, and Unknown 04/20/2018 has a current medication list which includes the following prescription(s): prevagen, aspirin ec, atorvastatin, levocetirizine, misc natural products, multiple vitamins-minerals, oxybutynin, primidone, propranolol, azo bladder control/go-less, senna-docusate, and topiramate. Vitals:12/03/23 1050 BP: 131/89 Pulse: 61 Resp: 16 Temp: 36.3 ?C (97.4 ?F) Neurological Exam Mental Status Awake and alert. Speech is normal. Cranial NervesCN II: Visual acuity is normal. CN III, IV, : Extraocular movements intact bilaterally. Pupils equal round and reactive to light bilaterally. CN VII: Full and symmetric facial movement. CN XII: Tongue midline without atrophy or fasciculations. MotorThe following abnormal movements were seen: Moderate to severe kinetic tremor. Strength is 5/5 throughout all four extremities. SensoryLight touch is normal in upper and lower extremities. Temperature is normal in upper and lower extremities. Vibration is normal in upper and lower extremities. ReflexesDeep tendon reflexes: Symmetric. Gait Ambulates with a rolling walker. No results found for this or any previous visit. No MRI head results found for the past 12 months Assessment & PlanEssential tremor Stable, continue present medications. [facility] HospitalRmhjnsw2322-05-50 11:10:24 [facility] HospitalXchnuoq9595-17-45 11:10:24 Diagnosis Essential tremor - Primary [facility] HospitalWeejogf3166-86-20 11:10:24 Jailyn Gregg
--- NOTE | 2024-12-29 12:08 | RAD REPORT ---
EXAMINATION: XR LEFT HIP CLINICAL INDICATION: . PAIN TECHNIQUE: Multiple views of the left hip were obtained. COMPARISON: 11/04/2022 FINDINGS: No acute hip fracture, dislocation or AVN. Area of sclerosis medial superior femoral shaft is unchanged. Mild left hip arthritic changes.
--- NOTE | 2024-12-29 12:42 | ER ---
Nurse's Notes [facility] Name: Neeta Olson Age: 84 yrs Sex: Female : 1940 Arrival Date: 12/29/2024 Time: 11:40 Bed 3 Private MD: Diagnosis: Pain in left hip Presentation: 12/29 11:47 Chief complaint: EMS states: Seen in ED on 11/19 for sacral fracture, c/o worsening right hb hip pain 02/25. Ofirmev 1gm IV to 22g RFA. Coronavirus screen: At this time, the client does not indicate any symptoms associated with coronavirus-19. Ebola Screen: No symptoms or risks identified at this time. Initial Sepsis Screen: Does the patient meet any 2 criteria? No. Patient's initial sepsis screen is negative. Does the patient have a suspected source of infection? No. Patient's initial sepsis screen is negative. Risk Assessment: Do you want to hurt yourself or someone else? Patient reports no desire to harm self or others. Onset of symptoms was December 29, 2024. 11:47 Method Of Arrival: EMS: [facility] 11:47 Acuity: FLAVIA 3 hb Triage Assessment: 11:50 General: Appears in no apparent distress. comfortable, well groomed, Behavior is calm, ph cooperative. Pain: Complains of pain in right hip. Neuro: Level of Consciousness is awake, alert, obeys commands, Oriented to person, place, time, situation. Cardiovascular: Capillary refill < 3 seconds in bilateral fingers Patient's skin is warm and dry. Respiratory: Airway is patent Respiratory effort is even, unlabored, Respiratory pattern is regular, symmetrical. Derm: Skin is pink, warm \T\ dry. Historical: - Allergies: 11:49 Sulfa (Sulfonamide Antibiotics); ph 11:49 Sulfa (Sulfonamide Antibiotics); hb - PMHx: 11:49 Glaucoma; lymphedema; tremors; ph - PSHx: 11:49 [place] Knee replacement; ph - Immunization history:: Adult Immunizations unknown. - Infectious Disease History:: Denies. - Social history:: Smoking status: Patient denies any tobacco usage or history of. Screenin:48 [facility] ED Fall Risk Assessment (Adult) History of falling in the last 3 months, ph including since admission Yes- single mechanical fall (1 pt) Confusion or Disorientation No (0 pts) Intoxicated or Sedated No (0 pts) Impaired Gait Yes (1 pt) Mobility Assist Device Used Yes (1 pt) Altered Elimination No (0 pt) Score/Fall Risk Level 3 or more points = High Risk Oriented to surroundings, Maintained a safe environment, Hourly rounding (assess needs \T\ fall precautionary measures) done, Used ambulatory aids as needed (educated on \T\ assisted with). Abuse screen: Denies threats or abuse. Denies injuries from another. Nutritional screening: No deficits noted. Tuberculosis screening: No symptoms or risk factors identified. Assessment: 12:27 Reassessment: Patient appears in no apparent distress at this time. Patient and/or iw family updated on plan of care and expected duration. Pain level reassessed. Patient is alert, oriented x 3, equal unlabored respirations, skin warm/dry/pink. Dr. Ramírez at bedside. 13:23 Reassessment: Patient appears in no apparent distress at this time. Patient and/or iw family updated on plan of care and expected duration. Pain level reassessed. Patient is alert, oriented x 3, equal unlabored respirations, skin warm/dry/pink. Vital Signs: 11:47 BP 131 / 87; Pulse 65; Resp 18; Temp 98.4; Pulse Ox 97% on R/A; Weight 70 kg; Height 4 ph ft. 11 in. ; 13:30 BP 129 / 78; Pulse 67; Resp 18; Temp 97.8; Pulse Ox 98% on R/A; ph 11:47 Body Mass Index 31.17 (70.00 kg, 149.86 cm) ph ED Course: 11:42 Patient arrived in ED. ms3 11:42 Heron Ramírez DO is Attending Physician. ms3 11:46 Ramonita Lau, RN is Primary Nurse. ph 11:47 Arm band placed on left wrist. Patient placed in an exam room, on a stretcher. ph 11:48 Triage completed. hb 11:49 Patient has correct armband on for positive identification. Bed in low position. Call ph light in reach. Side rails up X2. Pulse ox on. NIBP on. Door closed. Noise minimized. Warm blanket given. Pillow given. 12:04 Hip Left 2 View XRAY In Process Unspecified. EDMS 13:23 No provider procedures requiring assistance completed. IV discontinued, intact, iw bleeding controlled, No redness/swelling at site. Pressure dressing applied. Administered Medications: No medications were administered Medication: 11:49 VIS not applicable for this client. ph Outcome: 12:41 Discharge ordered by . ms3 13:59 Discharged to home via wheelchair, iw 13:59 Condition: good 13:59 Discharge instructions given to patient, Instructed on discharge instructions, follow up and referral plans. medication usage, Demonstrated understanding of instructions, follow-up care, medications, Prescriptions given X 1, 13:59 Patient left the ED. iw Signatures: Dispatcher [employer] EDMS Lissett Mittal RN RN iw Ramonita Lau RN RN Tejal Rodriguez RN RN hb Sims, Marcus, DO DO ms3 Corrections: (The following items were deleted from the chart) 11:49 11:47 Chief complaint: EMS states: Seen in ED on 11/19 for sacral and right hip fracture, hb c/o worsening pain 02/25. Ofirmev 1gm to 22g RFA. hb
--- NOTE | 2024-12-29 12:42 | EDPHYS ---
Physician Documentation [facility] Name: Neeta Olson Age: 84 yrs Sex: Female : 1940 Arrival Date: 12/29/2024 Time: 11:40 Bed 3 Private MD: ED Physician Heron Ramírez HPI: 12/29 11:47 This 84 yrs old Female presents to ER via Unassigned with complaints of Hip Pain. ms3 11:47 84-year-old female presents to the emergency department via [facility] for left ms3 hip pain that has been ongoing for 1 month. Patient states the pain is becoming worse. EMS states they administered 1 g IV Tylenol prior to arrival and patient's pain improved from a 10/10 to a 6/10. Patient notes she is currently out of her meloxicam and has attempted to get a refill and was unsuccessful.. Historical: - Allergies: 11:49 Sulfa (Sulfonamide Antibiotics); ph 11:49 Sulfa (Sulfonamide Antibiotics); hb - PMHx: 11:49 Glaucoma; lymphedema; tremors; ph - PSHx: 11:49 [place] Knee replacement; ph - Immunization history:: Adult Immunizations unknown. - Infectious Disease History:: Denies. - Social history:: Smoking status: Patient denies any tobacco usage or history of. ROS: 11:47 Constitutional: Negative for fever, and chills. Cardiovascular: Negative for chest ms3 pain, and palpitations. Respiratory: Negative for shortness of breath, cough, wheezing, and pleuritic chest pain, Abdomen/GI: Negative for abdominal pain, nausea, vomiting, diarrhea, and constipation, 11:47 MS/extremity: Positive for Left hip pain, Exam: 11:47 Constitutional: This is a well developed, well nourished patient who is awake, alert, ms3 and in no acute distress. Cardiovascular: Regular rate and rhythm with a normal S1 and S2. No gallops, murmurs, or rubs. Normal PMI, no JVD. No pulse deficits. Respiratory: Lungs have equal breath sounds bilaterally, clear to auscultation and percussion. No rales, rhonchi or wheezes noted. No increased work of breathing, no retractions or nasal flaring. Abdomen/GI: Soft, non-tender, with normal bowel sounds. No distension or tympany. No guarding or rebound. No evidence of tenderness throughout. Skin: Warm, dry with normal turgor. Normal color with no rashes, no lesions, and no evidence of cellulitis. 11:47 Musculoskeletal/extremity: Extremities: noted in the left hip: pain, Vital Signs: 11:47 BP 131 / 87; Pulse 65; Resp 18; Temp 98.4; Pulse Ox 97% on R/A; Weight 70 kg; Height 4 ph ft. 11 in. ; 13:30 BP 129 / 78; Pulse 67; Resp 18; Temp 97.8; Pulse Ox 98% on R/A; ph 11:47 Body Mass Index 31.17 (70.00 kg, 149.86 cm) ph MDM: 11:42 Medical Screening Exam initiated ms3 11:47 Differential diagnosis: hip fracture, intertrochanteric fracture, femoral neck ms3 fracture, strain, Healing sacral ala fracture. 16:06 Data reviewed: vital signs, nurses notes, radiologic studies, plain films, and as a ms3 result, I will discharge patient. Management of patient was discussed with the following: Primary Care Provider: Dr. Camacho. Independent interpretation of the following test(s) in the Emergency Department X-Ray: My interpretation is Left hip x-ray images reviewed by me do not reveal fracture or dislocation. Counseling: I had a detailed discussion with the patient and/or guardian regarding the historical points, exam findings, and any diagnostic results supporting the discharge/admit diagnosis, radiology results, the need for outpatient follow up, to return to the emergency department if symptoms worsen or persist or if there are any questions or concerns that arise at home. Special discussion: I discussed with the patient/guardian in detail that at this point there is no indication for admission to the hospital. It is understood, however, that if the symptoms persist or worsen the patient needs to return immediately for re-evaluation. ED course: Discussed x-ray findings with patient and her binder cutter. Patient to follow-up with primary care physician in 2 to 3 days. All questions were answered. Return precautions discussed include worsening symptoms, or any other concerns. Patient given prescription for meloxicam 15 mg daily as discussed with patient's primary care physician.. 12/29 11:43 Order name: Hip Left 2 View XRAY; Complete Time: 12:11 ms3 Administered Medications: No medications were administered Disposition Summary: 12/29/24 12:41 Discharge Ordered Notes: Location: Home ms3 Condition: Stable ms3 Diagnosis - Pain in left hip ms3 Followup: ms3 - With: Private Physician - When: 2 - 3 days - Reason: Recheck today's complaints Discharge Instructions: - Discharge Summary Sheet ms3 - Musculoskeletal Pain ms3 Forms: - Medication Reconciliation Form ms3 - Antibiotic Education ms3 - Prescription Opioid Use ms3 - Patient Portal Instructions ms3 - Leadership Thank You Letter ms3 Prescriptions: - meloxicam 15 mg Oral tablet - take 1 tablet ORAL route daily; 30 tablet; Refills: 0, Product Selection ms3 Permitted Signatures: Dispatcher [employer] Ramonita Tamez RN RN Tejal Torres RN RN Heron Ramírez, DO ms3
[2024-12-29 14:14] VITALS: BP 131/87; TEMP 98.4; O2SAT 97
== END 2024-12-29 13:59 | disposition home or self-care (01) ==
LOC: ER 11:40
DX: M25.552 Pain in left hip (principal); Z96.653 Presence of artificial knee joint, bilateral
CPT/HCPCS: 99284